=== PATIENT | female | born 1935 | race Caucasian/White ===

== ENCOUNTER 2017-10-09 09:51 | Day surgery (SDC) | payer OTHER ==
--- OUTSIDE RECORDS SUMMARY | 2017-10-09 09:53 | XMS REPORT | Clinical Summary ---
:1935 Author Organization [facility] Address [address] [place] [address] Phone Care Team Providers Name Role Phone Unavailable Primary Care Provider Unavailable Allergies Active Allergy Reactions Severity Noted Date Comments Tramadol Itching, Rash Low 10/12/2013 Current Medications Prescription Sig. Disp. Refills Start Date End Date Status ALPRAZolam (XANAX) Take 0.25 mg by Active 0.25 MG tablet mouth every night as needed. arformoterol Take 15 mcg by Active (BROVANA) 15 mcg/2 nebulization 2 mL nebulizer (two) times solution daily. cholecalciferol, Take by mouth Active vitamin D3, 50,000 daily . unit Tab aspirin 81 MG EC Take 81 mg by Active tablet mouth daily. amLODIPine Take 10 mg by Active (NORVASC) 10 MG mouth daily. tablet cetirizine Take 10 mg by Active (ZYRTEC) 10 MG mouth daily. tablet propranolol Take 20 mg by Active (INDERAL) 20 MG mouth 3 (three) tablet times daily. levothyroxine Take 1 tablet (88 30 tablet 0 03/27/2017 Active (SYNTHROID, mcg total) by LEVOTHROID) 88 MCG mouth Every tablet morning on an empty stomach. azithromycin Take by mouth Discontinued (ZITHROMAX) 250 MG daily. Take by 7 tablet mouth as directed. sertraline Take 25 mg by Discontinued (ZOLOFT) 25 MG mouth daily. 7 tablet propranolol Take 10 mg by Discontinued (INDERAL) 10 MG mouth 3 (three) 7 tablet times daily. levothyroxine Take 100 mcg by Discontinued (SYNTHROID, mouth Every 7 LEVOTHROID) 100 morning on an MCG tablet empty stomach. propranolol Take 0.5 tablets 90 tablet 0 03/26/2017 Discontinued (INDERAL) 20 MG (10 mg total) by 7 tablet mouth 3 (three) times daily. famotidine Take 1 tablet (20 28 tablet 0 03/27/2017 (PEPCID) 20 MG mg total) by 7 tablet mouth 2 (two) times daily for 14 days To protect your stomach while you are on steroids. azithromycin Take 1 tablet 30 tablet 0 03/27/2017 (ZITHROMAX) 250 MG (250 mg total) by 7 tablet mouth daily for 30 days Take chronically for MAC infection. predniSONE Take 1 tablet (10 28 tablet 0 03/27/2017 (DELTASONE) 10 MG mg total) by 7 tablet mouth 2 (two) times daily for 14 days. levoFLOXacin Take 1 tablet 5 tablet 0 03/26/2017 (LEVAQUIN) 750 MG (750 mg total) by 7 tablet mouth daily for 5 days Finish these antibiotics for pneumonia. 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 Physical deconditioning 03/25/2017 COPD exacerbation (HCC) 03/24/2017 Bronchiectasis (HCC) 10/24/2015 SOB (shortness of breath) 10/29/2014 Overview: CXR clear On Vanco/zosyn, azithro methylprednisone 40 mg IV q 6hr Cultures pending or negative thus far Pneumonia 10/12/2013 Bronchiectasis with acute exacerbation ([facility]) Essential tremor Hypertension Encounters Date Type Specialty Care Team Description 03/24/2017 - Hospital Cardiology Nayeli Sandoval COPD exacerbation 03/27/2017 Encounter MD Fred ([facility]) (Primary Mendez, Zeus Dx);Hypoxia;SOB MD Luis (shortness of Sophie, Fang-Mireille, breath);Cough;Leukoc ytosis, unspecified type;Bronchiectasis with acute exacerbation (HCC);Essential tremor;Essential hypertension;Communi ty acquired pneumonia, unspecified laterality;Current chronic use of systemic steroids;Acquired hypothyroidism;Acute kidney injury (HCC);Chronic respiratory failure with hypoxia (HCC);Mycobacterial infection, 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 Orders Only General Internal Medicine 03/17/2017 Hospital Man, Hypoxemia Encounter Socrates Villeda MD 03/17/2017 Outside Orders Stadn, Hypoxemia (Primary Socrates Villeda MD Dx) 10/30/2016 Hospital Man, Lung Encounter Socrates Villeda MD nodule;Bronchiectasi s without complication (HCC) 10/30/2016 Outside Orders Naty, Lung nodule (Primary Socrates Villeda MD Dx);Bronchiectasis without complication (HCC) after 10/08/2016 Social History Tobacco Use Types Packs/Day Years Used Date Never Smoker Alcohol Use Drinks/Week oz/Week Comments No Sex Assigned at Date Recorded Not on file Last Filed Vital Signs Vital Sign Reading Time Taken Blood Pressure 128/69 03/27/2017 11:55 AM CDT Pulse 116 03/27/2017 11:55 AM CDT Temperature 35.8 C (96.5 F) 03/27/2017 11:55 AM CDT Respiratory Rate 18 03/27/2017 11:55 AM CDT Oxygen Saturation 91% 03/27/2017 11:55 AM CDT Inhaled Oxygen Concentration - - Weight 65.3 kg (144 lb) 03/24/2017 1:49 PM CDT Height 170.2 cm (5' 7") 03/24/2017 10:44 PM CDT Body Mass Index 22.55 03/24/2017 1:49 PM CDT Plan of Treatment Not on file Procedures Procedure Name Priority Date/Time Associated Diagnosis Comments CRITICAL CARE Routine 03/24/2017 5:59 PM Results for this CDT procedure are in the results section. after 10/08/2016 Results RHYTHM STRIP - SCAN (04/02/2017 10:20 AM)Only the most recent of2 resultswithin the time period is included.Basic Metabolic Panel (03/27/2017 5:01 AM)Only the most recent of4 resultswithin the time period is included. Component Value Ref Range Sodium 142 136 - 145 meq/L Potassium 3.7 3.5 - 5.1 meq/L Chloride 107 98 - 107 meq/L CO2 27 22 - 29 meq/L BUN 35 (H) 7 - 21 mg/dL Creatinine 0.77 0.57 - 1.25 mg/dL Glucose 113 (H) 70 - 105 mg/dL Calcium 8.9 8.4 - 10.2 mg/dL EGFR 72Comment: ESTIMATED GFR IS NOT ACCURATE mL/min/1.73 sq m CREATININE CLEARANCE IN PREDICTING GLOMERULAR FILTRATION RATE. ESTIMATED GFR IS NOT APPLICABLE FOR DIALYSIS PATIENTS. Specimen Performing Laboratory Blood [facility] [address] [address] [address] chest with high resolution/ild (03/26/2017 10:05 PM) Specimen Performing Laboratory GE RIS Narrative FINAL REPORT CT of the chest, without contrast Clinical History:Ped, bronchiectasis, acute exacerbation Technique: CT of the chest is performed without intravenous contrast administration. This exam was performed according to our departmental dose optimization program which includes automated exposure control, adjustment of the mA and/or kV according to patient's size and/or use of iterative reconstructive technique.High resolution images of the lung are obtained during inspiration and expiration, in both supine and prone positions. Comparison Film:October 26, 2015 and October 31, 2014 Discussion: There is no supraclavicular, axillary adenopathy. Few scattered mediastinal lymph nodes are unchanged, likely reactive. Heart is normal in size, no pericardial effusion. There is bronchiectasis, and bronchial wall thickening, more severe in the lower lungs, associated with scattered foci of distal airway mucous plugging. New groundglass centrilobular nodules are not present in the right lower lobe, some demonstrate tree-in-bud morphology, suggestive of small airways disease. In addition, there is a small area of atelectasis and/or consolidation in the right lower lobe that is also new since the previous exam. No pleural effusion. A a few calcified granulomas are present. No evidence of significant air trapping. No fibrosis identified. Partially imaged upper abdomen is unremarkable. Osseous structures demonstrate mild degenerative changes. Impression: Bilateral bronchiectasis and bronchial wall thickening with scattered foci of mucous plugging, predominantly in the lower lobes. New centrilobular groundglass nodules and small area of atelectasis/consolidation in the right lower lobe suggests interval development of small airways and airspace disease. Signed: Nikki Aguilar MD Report Verified Date/Time:03/27/2017 08:41:17 Reading Location: [facility] Diagnostic Imaging Reading Room - [place] [id number] Procedure Note Interface, External Ris In - 03/27/2017 8:43 AM CDT FINAL REPORT CT of the chest, without contrast Clinical History: Ped, bronchiectasis, acute exacerbation Technique: CT of the chest is performed without intravenous contrast administration. This exam was performed according to our departmental dose optimization program which includes automated exposure control, adjustment of the mA and/or kV according to patient's size and/or use of iterative reconstructive technique. High resolution images of the lung are obtained during inspiration and expiration, in both supine and prone positions. Comparison Film: October 26, 2015 and October 31, 2014 Discussion: There is no supraclavicular, axillary adenopathy. Few scattered mediastinal lymph nodes are unchanged, likely reactive. Heart is normal in size, no pericardial effusion. There is bronchiectasis, and bronchial wall thickening, more severe in the lower lungs, associated with scattered foci of distal airway mucous plugging. New groundglass centrilobular nodules are not present in the right lower lobe, some demonstrate tree-in-bud morphology, suggestive of small airways disease. In addition, there is a small area of atelectasis and/or consolidation in the right lower lobe that is also new since the previous exam. No pleural effusion. A a few calcified granulomas are present. No evidence of significant air trapping. No fibrosis identified. Partially imaged upper abdomen is unremarkable. Osseous structures demonstrate mild degenerative changes. Impression: Bilateral bronchiectasis and bronchial wall thickening with scattered foci of mucous plugging, predominantly in the lower lobes. New centrilobular groundglass nodules and small area of atelectasis/consolidation in the right lower lobe suggests interval development of small airways and airspace disease. Signed: Nikki Aguilar MD Report Verified Date/Time: 03/27/2017 08:41:17 Reading Location: [facility] Diagnostic Imaging Reading Room - [place] [id number] (Hemogram only) (03/26/2017 5:22 AM)Only the most recent of2 resultswithin the time period is included. Component Value Ref Range WBC 28.7 (H) 3.5 - 10.5 K/L RBC 4.67 3.93 - 5.22 M/L Hemoglobin 13.1 11.2 - 15.7 GM/DL Hematocrit 43.2 34.1 - 44.9 % MCV 92.5 79.4 - 94.8 fL MCH 28.1 25.6 - 32.2 pg MCHC 30.3 (L) 32.2 - 35.5 GM/DL RDW 14.3 11.7 - 14.4 % Platelets 423 150 - 450 K/CU MM MPV 9.9 9.4 - 12.3 fL nRBC 0 0 - 0 /100 WBC Specimen Performing Laboratory Blood [address] [address] Hepatic function panel (03/26/2017 5:22 AM) Component Value Ref Range Protein, Total 6.5 6.0 - 8.3 gm/dL Albumin 3.4 (L) 3.5 - 5.0 g/dL Total Bilirubin 0.4 0.2 - 1.2 mg/dL Bilirubin, Direct 0.2 0.1 - 0.5 mg/dL Alkaline Phosphatase 110 40 - 150 U/L AST 10 5 - 34 U/L ALT 14 6 - 55 U/L Specimen Performing Laboratory Blood [address] [address] TSH/Free T4 If Indicated (03/25/2017 6:02 PM) Component Value Ref Range TSH 0.09 (L) 0.35 - 4.94 uIU/mL Specimen Performing Laboratory Blood - Arm, [address] [address] T4, free (03/25/2017 6:02 PM) Component Value Ref Range Free T4 1.28 0.70 - 1.48 ng/dL Specimen Performing Laboratory Blood - Arm, [address] [address] Sputum Culture + Gram Stain (03/24/2017 8:30 PM) Component Value Ref Range Result Result 4+ Pseudomonas aeruginosa (A) Result 4+ Pseudomonas aeruginosa (Mucoid-phenotype) (A) Gram Stain Result 2+ WBCs Gram Stain Result 0-5 epithelial cells Gram Stain Result 4+ gram negative rods Gram Stain Result 1+ gram positive cocci in pairs and clusters Gram Stain Result <1+ yeast Specimen Performing Laboratory Sputum - Expectorated [address] [place] [address] Narrative 4+ Normal respiratory greyson present Organism Antibiotic Method Susceptibility Pseudomonas aeruginosa Amikacin <=8: Susceptible Pseudomonas aeruginosa Aztreonam <=1: Susceptible Pseudomonas aeruginosa Cefepime 8: Susceptible Pseudomonas aeruginosa Ceftazidime <=1: Susceptible Pseudomonas aeruginosa Ciprofloxacin <=0.5: Susceptible Pseudomonas aeruginosa Doripenem <=0.5: Susceptible Pseudomonas aeruginosa Gentamicin 4: Susceptible Pseudomonas aeruginosa Imipenem 4: Resistant Pseudomonas aeruginosa Levofloxacin <=1: Susceptible Pseudomonas aeruginosa Meropenem <=0.5: Susceptible Pseudomonas aeruginosa Piperacillin <=16: Susceptible Pseudomonas aeruginosa Piperacillin + Tazobactam <=8: Susceptible Pseudomonas aeruginosa Tobramycin <=2: Susceptible Pseudomonas aeruginosa Amikacin <=8: Susceptible (Mucoid-phenotype) Pseudomonas aeruginosa Aztreonam <=1: Susceptible (Mucoid-phenotype) Pseudomonas aeruginosa Cefepime 8: Susceptible (Mucoid-phenotype) Pseudomonas aeruginosa Ceftazidime 2: Susceptible (Mucoid-phenotype) Pseudomonas aeruginosa Ciprofloxacin 2: Resistant (Mucoid-phenotype) Pseudomonas aeruginosa Doripenem <=0.5: Susceptible (Mucoid-phenotype) Pseudomonas aeruginosa Gentamicin <=2: Susceptible (Mucoid-phenotype) Pseudomonas aeruginosa Imipenem 1: Susceptible (Mucoid-phenotype) Pseudomonas aeruginosa Levofloxacin 2: Susceptible (Mucoid-phenotype) Pseudomonas aeruginosa Meropenem 1: Susceptible (Mucoid-phenotype) Pseudomonas aeruginosa Piperacillin <=16: Susceptible (Mucoid-phenotype) Pseudomonas aeruginosa Piperacillin + Tazobactam <=8: Susceptible (Mucoid-phenotype) Pseudomonas aeruginosa Tobramycin <=2: Susceptible (Mucoid-phenotype) Influenza A H1N1 PCR (03/24/2017 8:30 PM) Component Value Ref Range Influenza A RNA Not Detected Not Detected, Inconclusive Novel H1N1 RNA Not Detected Not Detected, Inconclusive Specimen Performing Laboratory Nasal - Nasopharyngeal Swab [address] [address] Narrative These assays were performed by real-time RT-PCR (administrative assistant receptionist-PCR) utilizing fluorogenic hydrolysis probe technology for the detection of human Influenza A viruses and the differential detection of novel H1N1 Influenza virus in respiratory specimens. The test is composed of (1) an RNA extraction from patient specimen, and (2) administrative assistant receptionist- PCR amplification and detection with human Influenza A and novel [id number] primers and probes. A well-conserved region of the Influenza A matrix gene is targeted in one set of reactions to identify both seasonal Influenza A and novel H1N1 Influenza virus in the specimen.In addition, a specific region of the hemagglutinin gene is targeted to differentiate the novel H1N1 virus from the seasonal human influenza. An internal control is used to confirm PCR amplification.Genetic variation and other factors can affect the accuracy of nucleic acid testing; therefore, the results should be interpreted in light of clinical data. This test was developed and its performance characteristics determined by the [facility] Pathology Department, Section of Molecular Pathology.It has not been cleared or approved by the U.S. Food and Drug Administration (FDA).Since FDA approval is not required for clinical use of the test, validation was done as required by The Clinical Laboratory Amendments of 1988. These assays were performed by real-time RT-PCR (administrative assistant receptionist-PCR) utilizing fluorogenic hydrolysis probe technology for the detection of human Influenza A viruses and the differential detection of novel H1N1 Influenza virus in respiratory specimens. The test is composed of (1) an RNA extraction from patient specimen, and (2) administrative assistant receptionist- PCR amplification and detection with human Influenza A and novel [id number] primers and probes. A well-conserved region of the Influenza A matrix gene is targeted in one set of reactions to identify both seasonal Influenza A and novel H1N1 Influenza virus in the specimen.In addition, a specific region of the hemagglutinin gene is targeted to differentiate the novel H1N1 virus from the seasonal human influenza. An internal control is used to confirm PCR amplification.Genetic variation and other factors can affect the accuracy of nucleic acid testing; therefore, the results should be interpreted in light of clinical data. This test was developed and its performance characteristics determined by the [facility] Pathology Department, Section of Molecular Pathology.It has not been cleared or approved by the U.S. Food and Drug Administration (FDA).Since FDA approval is not required for clinical use of the test, validation was done as required by The Clinical Laboratory Amendments of 1988. Strep pneumoniae urine antigen (03/24/2017 8:30 PM) Component Value Ref Range Strep pneumoniae Antigen Presumptive negative for Presumptive negative for pneumococcal pneumonia - see pneumococcal pneumonia - see comment comment, Presumptive negative for pneumococcal meningitis - see comment Specimen Performing Laboratory Urine - Urine, Unspecified [place] [address] Narrative Presumptive negative for pneumococcal pneumonia, suggesting no current or recent pneumococcal infection. Infection due to S. pneumoniae cannot be ruled out since the antigen present in the sample may be below the detection limit of the test. Legionella antigen, urine (03/24/2017 8:30 PM) Component Value Ref Range Legionella Urine Antigen Negative - see commentComment: Negative for L. pneumophila serogroup 1 antigen, suggesting no recent or current infection with this serogroup. Legionellosis cannot be ruled out since other serogroups and species may cause disease. Specimen Performing Laboratory Urine - Urine, Clean Catch [address] [address] Rapid Influenza A&B Screen (03/24/2017 8:30 PM) Component Value Ref Range Rapid Influenza A Antigen Negative Negative, Inconclusive Rapid influenza B Antigen Negative Negative, Inconclusive Specimen Performing Laboratory Nasal - Nasopharyngeal Swab [address] [address] ED ECG Interpretation (03/24/2017 5:59 PM) Nayeli Remy MD 03/24/20175:59 PM ECG/EKG Interpretation Date/Time: 03/24/2017 5:58 PM Performed by: NAYELI SANDOVAL Authorized by: ZEUS MENDEZ The ECG was interpreted by ED physician. The ECG is interpreted as sinus rhythm. Heart rate is 83 BPM. Patient tolerance: Patient tolerated the procedure well with no immediate complications Comments: SIN[facility] R[facility]M ON [facility] Critical Care (03/24/2017 5:59 PM) Nayeli Remy MD 03/24/20175:59 PM Critical Care Performed by: NAYELI SANDOVAL Authorized by: ZEUS MENDEZ Total critical care time: 35 minutes Critical care time was exclusive of separately billable procedures and treating other patients. Critical care was necessary to treat or prevent imminent or life-threatening deterioration of the following conditions: respiratory failure and sepsis. Critical care was time spent personally by me on the following activities: development of treatment plan with patient or surrogate, discussions with consultants, examination of patient, evaluation of patient's response to treatment, obtaining history from patient or surrogate, ordering and performing treatments and interventions, ordering and review of laboratory studies, ordering and review of radiographic studies, pulse oximetry, re-evaluation of patient's condition and review of old charts. Comments: I provided medically necessary Critical Care on an emergent basis in order to prevent any sudden, clinically significant deterioration in her condition. Critical care time:35min It is my opinion that her clinical presentation, without appropriate emergent intervention has the potential to acutely impair one or more of her vital organ systems with a high probability of imminent deterioration in her condition. The time involved in the performance of separately reportable procedures or teaching time was not counted towards the critical care time that is documented here. POC-Lactic Acid, Venous (03/24/2017 5:27 PM) Component Value Ref Range POC-Lactic Acid, Venous 1.8 (H)Comment: TESTED AT [address] 0.9 - 1.7 mmol/L [facility] [id number] Specimen Performing Laboratory Blood [address] [address] Blood culture (03/24/2017 5:21 PM)Only the most recent of2 resultswithin the time period is included. Component Value Ref Range Result No growth in 5 days Specimen Performing Laboratory Blood - Arm, Left [address] [address] XR chest 1 view portable / bedside (03/24/2017 2:45 PM) Specimen Performing Laboratory GE RIS Narrative FINAL REPORT AP chest HISTORY: Cough, shortness of breath COMPARISON: 03/17/2017, 10/30/2016. IMPRESSION: Stable cardiac silhouette. No acute osseous findings. Bibasilar opacities may reflect pneumonia or atelectasis. No large effusion. No pneumothorax. Consider contrast-enhanced chest CT for further evaluation. Signed: Bushra Markham MD Report Verified Date/Time:03/24/2017 15:00:31 Reading Location: [facility] Mammo Reading Room Procedure Note Interface, External Ris In - 03/24/2017 3:03 PM CDT FINAL REPORT AP chest HISTORY: Cough, shortness of breath COMPARISON: 03/17/2017, 10/30/2016. IMPRESSION: Stable cardiac silhouette. No acute osseous findings. Bibasilar opacities may reflect pneumonia or atelectasis. No large effusion. No pneumothorax. Consider contrast-enhanced chest CT for further evaluation. Signed: Bushra Markham MD Report Verified Date/Time: 03/24/2017 15:00:31 Reading Location: [facility] Mammo Reading Room Manual Differential (03/24/2017 2:42 PM) Component Value Ref Range % Neutros (manual) 86 % % Lymphs (manual) 10 % % Monos (manual) 2 % % Bands (manual) 2 0 - 10 % # Neutros (manual) 20.73 (H) 1.80 - 8.00 K/L # Lymphs (manual) 2.41 1.48 - 4.50 K/L # Monos (manual) 0.48 0.00 - 1.30 K/L # Bands (manual) 0.5 0.0 - 0.8 K/L Total Counted 100 Bands plus Segmented Neutrophils 21.21 WBC Morphology Normal Giant Platelet Present Anisocytosis 1+ few Polychromasia 1+ few Specimen Performing Laboratory Blood - Line, Venous [facility] [address] [address] CBC with platelet count + automated diff (03/24/2017 2:42 PM) Component Value Ref Range WBC 24.1 (H) 3.5 - 10.5 K/L RBC 4.80 3.93 - 5.22 M/L Hemoglobin 14.0 11.2 - 15.7 GM/DL Hematocrit 45.1 (H) 34.1 - 44.9 % MCV 94.0 79.4 - 94.8 fL MCH 29.2 25.6 - 32.2 pg MCHC 31.0 (L) 32.2 - 35.5 GM/DL RDW 14.2 11.7 - 14.4 % Platelets 492 (H) 150 - 450 K/CU MM MPV 9.8 9.4 - 12.3 fL nRBC 0 0 - 0 /100 WBC % Neutros 89 % % Lymphs 8 % % Monos 2 % % Eos 0 % % Baso 0 % # Neutros 21.53 (H) 1.56 - 6.13 K/L # Lymphs 1.87 1.18 - 3.74 K/L # Monos 0.35 0.24 - 0.36 K/L # Eos 0.00 (L) 0.04 - 0.36 K/L # Baso 0.06 0.01 - 0.08 K/L Immature Granulocytes-Relative 1 0 - 1 % Specimen Performing Laboratory Blood - Line, Venous [facility] [address] [address] CBC with platelet count + automated diff (03/24/2017 2:42 PM) Specimen Performing Laboratory Blood Narrative The following orders were created for panel order CBC with platelet count + automated diff. Procedure Abnormality Status --------- ------ CBC with platelet count ...[[id number]]AbnormalFinal result Manual Differential[[id number]]Abnormal Final result Please view results for these tests on the individual orders. ECG 12 lead (03/24/2017 2:30 PM) Specimen Performing Laboratory GE MUSE Narrative Ventricular Rate 83 BPM Atrial Rate 83 BPM P-R Interval 132 ms QRS Duration 88 ms Q-T Interval 340 ms QTC Calculation(Bazett) 399 ms P [place] 65 degrees R [place] -38 degrees T [place] 2 degrees very poor tracing Confirmed by MD Ayon Roberto ([id number]) on 03/25/2017 3:25:19 PM Procedure Note Interface, External Ris In - 03/25/2017 3:25 PM CDT Ventricular Rate 83 BPM Atrial Rate 83 BPM P-R Interval 132 ms QRS Duration 88 ms Q-T Interval 340 ms QTC Calculation(Bazett) 399 ms P [place] 65 degrees R [place] -38 degrees T [place] 2 degrees very poor tracing Confirmed by MD Ayon Roberto ([id number]) on 03/25/2017 3:25:19 PM XR Chest 2 Views (03/17/2017 1:44 PM)Only the most recent of2 resultswithin the time period is included. Specimen Performing Laboratory GE RIS Narrative FINAL REPORT PA and lateral chest HISTORY: Hypoxemia COMPARISON: 10/30/2016, 08/23/2014. CT performed 10/26/2015. IMPRESSION: Exaggerated thoracic kyphosis again demonstrated. No acute osseous bodies. Cardiac silhouette within normal limits. There appears to interval increase in opacities in the middle lobe and in size of nodules within the lingula which may reflect ongoing/worsening infectious etiology, such as from pulmonary JOCELIN. Lungs otherwise clear. No effusion. No pneumothorax. Further evaluation with chest CT may be useful. Signed: Bushra Markham MD Report Verified Date/Time:03/17/2017 13:54:25 Reading Location: [address] Radiology Reading Room Procedure Note Interface, External Ris In - 03/17/2017 1:56 PM CDT FINAL REPORT PA and lateral chest HISTORY: Hypoxemia COMPARISON: 10/30/2016, 08/23/2014. CT performed 10/26/2015. IMPRESSION: Exaggerated thoracic kyphosis again demonstrated. No acute osseous bodies. Cardiac silhouette within normal limits. There appears to interval increase in opacities in the middle lobe and in size of nodules within the lingula which may reflect ongoing/worsening infectious etiology, such as from pulmonary JOCELIN. Lungs otherwise clear. No effusion. No pneumothorax. Further evaluation with chest CT may be useful. Signed: Bushra Markham MD Report Verified Date/Time: 03/17/2017 13:54:25 Reading Location: [address] Radiology Reading Room after 10/08/2016
--- OUTSIDE RECORDS SUMMARY | 2017-10-09 09:54 | XMS REPORT ---
:1935 [facility] Address Re[facility] by [facility] Joseluis Castañeda [address] [place] [id number] Care Team Providers Name Role Phone NAYELI ASHTON Unavailable Unavailable Problems This patient has no known problems. Allergies, Adverse Reactions, Alerts This patient has no known allergies or adverse reactions. Medications This patient has no known medications. Results Test Description Test Time Test Comments Text Results Atomic Results Result Comments BLOOD CULTURE 2017-03-30 01:00:00 Test Item Value Reference Range Comments CULTURE (BEAKER) (test hbtf=1077) No growth in 5 days BLOOD [id number] 01:00:00 Test Item Value Reference Range Comments CULTURE (BEAKER) (test lubw=9609) No growth in 5 days SPUTUM CULTURE + GRAM [id number] 11:21:00 Test Item Value Reference Range Comments CULTURE (BEAKER) (test ldsh=7165) Amikacin (test code=1) Aztreonam (test code=32) Cefepime (test code=51) Ceftazidime (test code=27) Ciprofloxacin (test code=7) Doripenem (test dzlo=167) Gentamicin (test code=18) Imipenem (test code=19) Levofloxacin (test code=22) Meropenem (test code=34) Piperacillin (test code=24) Piperacillin + Tazobactam (test code=29) Tobramycin (test code=25) CULTURE (BEAKER) (test PSEUDOMONAS AERUGINOSA 4+ Pseudomonas hosj=9219) (MUCOID-PHENOTYPE) aeruginosa Amikacin (test code=1) Aztreonam (test code=32) Cefepime (test code=51) Ceftazidime (test code=27) Ciprofloxacin (test code=7) Doripenem (test hvte=684) Gentamicin (test code=18) Imipenem (test code=19) Levofloxacin (test code=22) Meropenem (test code=34) Piperacillin (test code=24) Piperacillin + Tazobactam (test code=29) Tobramycin (test code=25) CULTURE (BEAKER) (test 4+ Pseudomonas timc=1860) aeruginosa (Mucoid-phenotype) GRAM STAIN RESULT 2+ WBCs (BEAKER) (test hinf=4660) GRAM STAIN RESULT 0-5 epithelial cells (BEAKER) (test vpgr=209498) GRAM STAIN RESULT 4+ gram negative rods (BEAKER) (test wapu=100745) GRAM STAIN RESULT 1+ gram positive cocci (BEAKER) (test in pairs and clusters spah=063628) GRAM STAIN RESULT <1+ yeast (BEAKER) (test htrr=750120) 4+ Normal respiratory greyson presentCT, CHEST, WITH HIGH RESOLUTION, INTERSTITAL LUNG [id number] 08:41:00Compare to prior imagingFINAL REPORT CT of the chest, without contrast Clinical History: Ped, bronchiectasis, acute exacerbation Technique: CT of the chest is performed without intravenous contrast administration. This exam was performed according to our departmental dose optimization program which includes automated exposure control, adjustment of the mA and/or kV according to patient's size and/oruse of iterative reconstructive technique. High resolution images of the lung are obtained during inspiration and expiration, in both supine and prone positions. Comparison Film: October 26, 2015 and October 31, 2014 Discussion: There is no supraclavicular, axillary adenopathy. Few scattered mediastinal lymph nodes are unchanged, likely reactive. Heart is normal in size, no pericardial effusion. There isbronchiectasis, and bronchial wall thickening, more severe in the lower lungs, associated with scattered foci of distal airway mucous plugging. New groundglass centrilobular nodules are not present in the right lower lobe, some demonstrate tree-in-bud morphology, suggestive of small airways disease. In addition, there is a small area of atelectasis and/or consolidation in the right lower lobe that isalso new since the previous exam. No pleural [...] airways and airspace disease. Signed: Nikki Aguilar Verified Date/Time: 03/27/2017 08: 41:17 Reading Location: [facility] Diagnostic Imaging Reading Room - [place] [address] BASIC METABOLIC [id number] 05:50:00 Test Item Value Reference Range Comments SODIUM (BEAKER) (test 142 meq/L 136-145 rzjz=537) POTASSIUM (BEAKER) (test 3.7 meq/L 3.5-5.1 ytvx=888) CHLORIDE (BEAKER) (test 107 meq/L 98-107 ahnc=813) CO2 (BEAKER) (test 27 meq/L 22-29 gskp=204) BLOOD UREA NITROGEN 35 mg/dL 7-21 (BEAKER) (test appt=699) CREATININE (BEAKER) (test 0.77 mg/dL 0.57-1.25 ysxw=569) GLUCOSE RANDOM (BEAKER) 113 mg/dL 70-105 (test hhqg=871) CALCIUM (BEAKER) (test 8.9 mg/dL 8.4-10.2 fcpq=285) EGFR (BEAKER) (test 72 mL/min/1.73 sq m ESTIMATED GFR IS NOT ilkb=5244) ACCURATE CREATININE CLEARANCE IN PREDICTING GLOMERULAR FILTRATION RATE. ESTIMATED GFR IS NOT APPLICABLE FOR DIALYSIS PATIENTS. HEPATIC FUNCTION [id number] 07:53:00 Test Item Value Reference Range Comments TOTAL PROTEIN (BEAKER) (test dqwd=507) 6.5 gm/dL 6.0-8.3 ALBUMIN (BEAKER) (test okvc=0076) 3.4 g/dL 3.5-5.0 BILIRUBIN TOTAL (BEAKER) (test szcr=447) 0.4 mg/dL 0.2-1.2 BILIRUBIN DIRECT (BEAKER) (test jtxa=113) 0.2 mg/dL 0.1-0.5 ALKALINE PHOSPHATASE (BEAKER) (test pjje=718) 110 U/L 40-150 AST (SGOT) (BEAKER) (test jykz=859) 10 U/L 5-34 ALT (SGPT) (BEAKER) (test aqqm=832) 14 U/L 6-55 BASIC METABOLIC [id number] 07:53:00 Test Item Value Reference Range Comments SODIUM (BEAKER) (test 142 meq/L 136-145 trfw=948) POTASSIUM (BEAKER) (test 3.9 meq/L 3.5-5.1 wkau=219) CHLORIDE (BEAKER) (test 109 meq/L 98-107 texj=665) CO2 (BEAKER) (test 21 meq/L 22-29 xipm=799) BLOOD UREA NITROGEN 30 mg/dL 7-21 (BEAKER) (test ydby=690) CREATININE (BEAKER) (test 0.82 mg/dL 0.57-1.25 nvqm=991) GLUCOSE RANDOM (BEAKER) 111 mg/dL 70-105 (test ippe=403) CALCIUM (BEAKER) (test 9.2 mg/dL 8.4-10.2 jdqa=445) EGFR (BEAKER) (test 67 mL/min/1.73 sq m ESTIMATED GFR IS NOT ddvs=3479) ACCURATE CREATININE CLEARANCE IN PREDICTING GLOMERULAR FILTRATION RATE. ESTIMATED GFR IS NOT APPLICABLE FOR DIALYSIS PATIENTS. CBC (HEMOGRAM ONLY)2017-03-26 06:37:00 Test Item Value Reference Range Comments WHITE BLOOD CELL COUNT (BEAKER) (test auwx=299) 28.7 K/ L 3.5-10.5 RED BLOOD CELL COUNT (BEAKER) (test siex=323) 4.67 M/ L 3.93-5.22 HEMOGLOBIN (BEAKER) (test ahju=621) 13.1 GM/DL 11.2-15.7 HEMATOCRIT (BEAKER) (test iqth=604) 43.2 % 34.1-44.9 MEAN CORPUSCULAR VOLUME (BEAKER) (test csvm=928) 92.5 fL 79.4-94.8 MEAN CORPUSCULAR HEMOGLOBIN (BEAKER) (test 28.1 pg 25.6-32.2 iktg=175) MEAN CORPUSCULAR HEMOGLOBIN CONC (BEAKER) (test 30.3 GM/DL 32.2-35.5 jfpj=330) RED CELL DISTRIBUTION WIDTH (BEAKER) (test 14.3 % 11.7-14.4 fuzo=652) PLATELET COUNT (BEAKER) (test wipo=561) 423 K/CU MM 150-450 MEAN PLATELET VOLUME (BEAKER) (test azhh=980) 9.9 fL 9.4-12.3 NUCLEATED RED BLOOD CELLS (BEAKER) (test 0 /100 WBC 0-0 gyga=550) T4, [id number] 19:51:00 Test Item Value Reference Range Comments FREE T4 (BEAKER) (test oldu=988) 1.28 ng/dL 0.70-1.48 TSH/FREE T4 IF [id number] 19:02:00 Test Item Value Reference Range Comments THYROID STIMULATING HORMONE (BEAKER) (test 0.09 uIU/mL 0.35-4.94 yqyc=607) INFLUENZA A H1N1 [id number] 14:59:00 Test Item Value Reference Range Comments INFLUENZA A RNA (BEAKER) (test Not Detected Not Detected, Inconclusive kqqu=5300) NOVEL H1N1 RNA (BEAKER) (test Not Detected Not Detected, Inconclusive olve=9748) These assays were performed by real-time RT-PCR (informatics consultant-PCR) utilizing fluorogenic hydrolysis probe technology for the detection of human Influenza A viruses and the differential detection of novel H1N1 Influenza virus in respiratory specimens. The test is composed of (1) an RNA extraction from patient specimen, and (2) informatics consultant-PCR amplification and detection with human Influenza A and novel Z0N3-gvtbjshw primers and probes. A well-conserved region of the Influenza A matrix gene is targeted in one set of reactions to identify both seasonal Influenza A and novel H1N1 Influenza virus in the specimen. In addition, a specific region of the hemagglutinin gene is targeted to differentiate the novel H1N1 virusfrom the seasonal human influenza. An internal control is used to confirm PCR amplification. Genetic variation and other factors can affect the accuracy of nucleic acid testing; therefore, the resultsshould be interpreted in light of clinical data. This test was developed and its performance characteristics determined by the [facility]ology Department, Section of Molecular Pathology. It has not been cleared or approved by the U.S. Food and Drug Administration (FDA). SinceFDA approval is not required for clinical use of the test, validation was done as required by The Clinical Laboratory Amendments of 1988.These assays were performed by real-time RT-PCR (informatics consultant-PCR) utilizing fluorogenic hydrolysis probe technology for the detection of human Influenza A viruses and the differential detection of novel H1N1 Influenza virus in respiratory specimens. The test is composed of (1) an RNA extraction from patient specimen, and (2) informatics consultant-PCR amplification and detection with human Influenza A and novel X7L2-mvotmwhu primers and probes. A well-conserved region of the Influenza A matrix gene is targeted in one set of reactions to identify both seasonal Influenza A and novel H1N1 Influenza virus in the specimen. In addition, a specific region of the hemagglutinin gene is targeted to differentiate the novel H1N1 virus from the seasonal human influenza. An internal control is used to confirm PCR amplification. Genetic variation and other factors can affect the accuracy of nucleic acid testing; therefore, the results should be interpreted in light of clinical data. This test was developed and its performance characteristics determined by the [facility] Department, Section of Molecular Pathology. It has not been cleared or approved by the U.S. Food and Drug Administration ( FDA). Since FDA approval is not required for clinical use of the test, validation was done as required by The Clinical Laboratory Amendments of 1988.BASIC METABOLIC [id number] 06:47:00 Test Item Value Reference Range Comments SODIUM (BEAKER) (test 143 meq/L 136-145 ifda=389) POTASSIUM (BEAKER) (test 4.0 meq/L 3.5-5.1 Specimen slightly kjaq=075) hemolyzed CHLORIDE (BEAKER) (test 109 meq/L 98-107 ynyl=999) CO2 (BEAKER) (test 25 meq/L 22-29 wjhf=577) BLOOD UREA NITROGEN 35 mg/dL 7-21 (BEAKER) (test pmue=224) CREATININE (BEAKER) (test 0.77 mg/dL 0.57-1.25 Specimen slightly xadl=419) hemolyzed GLUCOSE RANDOM (BEAKER) 99 mg/dL 70-105 (test wgri=513) CALCIUM (BEAKER) (test 9.2 mg/dL 8.4-10.2 hrzg=177) EGFR (BEAKER) (test 72 mL/min/1.73 sq m ESTIMATED GFR IS NOT nzbf=1930) ACCURATE CREATININE CLEARANCE IN PREDICTING GLOMERULAR FILTRATION RATE. ESTIMATED GFR IS NOT APPLICABLE FOR DIALYSIS PATIENTS. CBC (HEMOGRAM ONLY)2017-03-25 06:45:00 Test Item Value Reference Range Comments WHITE BLOOD CELL COUNT (BEAKER) (test lnom=624) 25.9 K/ L 3.5-10.5 RED BLOOD CELL COUNT (BEAKER) (test clxc=490) 4.32 M/ L 3.93-5.22 HEMOGLOBIN (BEAKER) (test giwp=904) 12.5 GM/DL 11.2-15.7 HEMATOCRIT (BEAKER) (test mpsf=960) 39.8 % 34.1-44.9 MEAN CORPUSCULAR VOLUME (BEAKER) (test ppzl=012) 92.1 fL 79.4-94.8 MEAN CORPUSCULAR HEMOGLOBIN (BEAKER) (test 28.9 pg 25.6-32.2 wrpy=045) MEAN CORPUSCULAR HEMOGLOBIN CONC (BEAKER) (test 31.4 GM/DL 32.2-35.5 samq=602) RED CELL DISTRIBUTION WIDTH (BEAKER) (test 13.9 % 11.7-14.4 tsdi=375) PLATELET COUNT (BEAKER) (test xwxj=944) 363 K/CU MM 150-450 MEAN PLATELET VOLUME (BEAKER) (test zyep=447) 9.8 fL 9.4-12.3 NUCLEATED RED BLOOD CELLS (BEAKER) (test 0 /100 WBC 0-0 uwpr=267) STREP PNEUMONIAE [id number] 21:41:00 Test Item Value Reference Range Comments STREP PNEUMONIAE ANTIGEN Presumptive negative for Presumptive negative for (BEAKER) (test pneumococcal pneumonia - pneumococcal pneumonia - twhy=8782) see comment see commen Presumptive negative for pneumococcal pneumonia, suggesting no current or recent pneumococcal infection. Infection due to S. pneumoniae cannot be ruled out since the antigen present in the sample may be below the detection limit of the test.LEGIONELLA ANTIGEN, [id number] 21:40:00 Test Item Value Reference Range Comments L. PNEUMOPHILA SEROGP 1 Negative - see Negative for L. UR AG (BEAKER) (test comment pneumophila serogroup 1 wndb=0616) antigen, suggesting no recent or current infection with this serogroup. Legionellosis cannot be ruled out since other serogroups and species may cause disease. RAPID INFLUENZA A&B [id number] 21:39:00 Test Item Value Reference Range Comments RAPID INFLUENZA A AG (BEAKER) (test Negative Negative, Inconclusive ktcm=5635) RAPID INFLUENZA B AG (BEAKER) (test Negative Negative, Inconclusive tjrp=9391) CBC W/PLT COUNT & AUTO [id number] 18:13:00 Test Item Value Reference Range Comments WHITE BLOOD CELL COUNT (BEAKER) (test aimi=756) 24.1 K/ L 3.5-10.5 RED BLOOD CELL COUNT (BEAKER) (test wsif=119) 4.80 M/ L 3.93-5.22 HEMOGLOBIN (BEAKER) (test lbpv=171) 14.0 GM/DL 11.2-15.7 HEMATOCRIT (BEAKER) (test ucvj=131) 45.1 % 34.1-44.9 MEAN CORPUSCULAR VOLUME (BEAKER) (test lwdp=086) 94.0 fL 79.4-94.8 MEAN CORPUSCULAR HEMOGLOBIN (BEAKER) (test 29.2 pg 25.6-32.2 xqpg=436) MEAN CORPUSCULAR HEMOGLOBIN CONC (BEAKER) (test 31.0 GM/DL 32.2-35.5 abui=389) RED CELL DISTRIBUTION WIDTH (BEAKER) (test 14.2 % 11.7-14.4 heay=548) PLATELET COUNT (BEAKER) (test dnus=996) 492 K/CU MM 150-450 MEAN PLATELET VOLUME (BEAKER) (test ntgw=929) 9.8 fL 9.4-12.3 NUCLEATED RED BLOOD CELLS (BEAKER) (test 0 /100 WBC 0-0 yebh=526) NEUTROPHILS RELATIVE PERCENT (BEAKER) (test 89 % azid=500) LYMPHOCYTES RELATIVE PERCENT (BEAKER) (test 8 % hntk=997) MONOCYTES RELATIVE PERCENT (BEAKER) (test 2 % ymqy=990) EOSINOPHILS RELATIVE PERCENT (BEAKER) (test 0 % imkp=538) BASOPHILS RELATIVE PERCENT (BEAKER) (test 0 % stgb=064) NEUTROPHILS ABSOLUTE COUNT (BEAKER) (test 21.53 K/ L 1.56-6.13 hpdx=054) LYMPHOCYTES ABSOLUTE COUNT (BEAKER) (test 1.87 K/ L 1.18-3.74 ixil=571) MONOCYTES ABSOLUTE COUNT (BEAKER) (test 0.35 K/ L 0.24-0.36 zyos=312) EOSINOPHILS ABSOLUTE COUNT (BEAKER) (test 0.00 K/ L 0.04-0.36 oxqm=141) BASOPHILS ABSOLUTE COUNT (BEAKER) (test 0.06 K/ L 0.01-0.08 hguz=893) IMMATURE GRANULOCYTES-RELATIVE PERCENT (BEAKER) 1 % 0-1 (test abye=8092) (MANUAL DIFFERENTIAL)2017-03-24 18:13:00 Test Item Value Reference Range Comments NEUTROPHILS - REL (DIFF) (BEAKER) (test 86 % xdjk=5979) LYMPHOCYTES - REL (DIFF) (BEAKER) (test 10 % drmg=9522) MONOCYTES - REL (DIFF) (BEAKER) (test gupb=3557) 2 % BANDS - REL (DIFF) (BEAKER) (test mrbq=3873) 2 % 0-10 NEUTROPHILS - ABS (DIFF) (BEAKER) (test 20.73 K/ L 1.80-8.00 zzan=3933) LYMPHOCYTES - ABS (DIFF) (BEAKER) (test 2.41 K/ L 1.48-4.50 mflv=2846) MONOCYTES - ABS (DIFF) (BEAKER) (test xbhk=0604) 0.48 K/ L 0.00-1.30 BANDS-ABS (DIFF) (BEAKER) (test obbm=9874) 0.5 K/ L 0.0-0.8 TOTAL COUNTED (BEAKER) (test gvfq=2256) 100 BANDS + SEGMENTED NEUTROPHILS (BEAKER) (test 21.21 tegw=4878) WBC MORPHOLOGY (BEAKER) (test xlrj=833) Normal GIANT PLATELETS (BEAKER) (test lfqe=491) Present ANISOCYTOSIS (BEAKER) (test hvkg=780) 1+ few POLYCHROMATOPHILLIC RBCS(BEAKER) (test fdub=647) 1+ few POCT-LACTIC ACID, [id number] 17:31:00 Test Item Value Reference Range Comments POC-LACTIC ACID, VENOUS 1.8 mmol/L 0.9-1.7 TESTED AT [facility] [address] (BEAKER) (test mkoz=7663) [facility] [address] BASIC METABOLIC [id number] 15:20:00 Test Item Value Reference Range Comments SODIUM (BEAKER) (test 143 meq/L 136-145 kuun=456) POTASSIUM (BEAKER) (test 4.2 meq/L 3.5-5.1 ovot=704) CHLORIDE (BEAKER) (test 107 meq/L 98-107 dhuf=443) CO2 (BEAKER) (test 25 meq/L 22-29 bara=806) BLOOD UREA NITROGEN 32 mg/dL 7-21 (BEAKER) (test ysjy=676) CREATININE (BEAKER) (test 1.12 mg/dL 0.57-1.25 ganm=970) GLUCOSE RANDOM (BEAKER) 157 mg/dL 70-105 (test nrbn=299) CALCIUM (BEAKER) (test 9.7 mg/dL 8.4-10.2 aaoz=545) EGFR (BEAKER) (test 47 mL/min/1.73 sq m ESTIMATED GFR IS NOT gtrm=5088) ACCURATE CREATININE CLEARANCE IN PREDICTING GLOMERULAR FILTRATION RATE. ESTIMATED GFR IS NOT APPLICABLE FOR DIALYSIS PATIENTS. RAD, CHEST, 1 VIEW, NON [id number] 15:00:00Reason for exam:->SHORTNESS OF BREATHReason for exam:->COUGHShould this be performed at the bedside?-> YesFINAL REPORT AP chest HISTORY: Cough, shortness of breath COMPARISON: 03/17/2017, 10/30/2016. IMPRESSION:Stable cardiac silhouette. No acute osseous findings. Bibasilar opacities may reflect pneumonia or atelectasis. No large effusion. No pneumothorax. Consider contrast-enhanced chest CT for further evaluation. Signed: Bushra Markhameport Verified Date/ Time: 03/24/2017 15:00:31 [facility] , [facility]ST, 2 [id number] 13:54:00Reason for Exam:->hypoxemiaLocation-> [facility] HospitalFINAL REPORT PA and lateral chest HISTORY: Hypoxemia COMPARISON: 10/30/2016, 08/23/2014. CT performed 2015. IMPRESSION:Exaggerated thoracic kyphosis again demonstrated. No acute osseous bodies. Cardiac silhouette within normal limits. There appears to interval increase in opacities in the middle lobe and in size of nodules within the lingula which may reflect ongoing/worsening infectious etiology, such as from pulmonary JOCELIN. Lungs otherwise clear. No effusion. No pneumothorax. Further evaluation with chest CT may be useful. Signed: Bushra Markhamepgayathri Verified Date/Time: 03/17/2017 13:54:25 Reading Location: [address] Radiology Reading Room
[2017-10-09] MEDS ORDERED: Ringers Lactate 1,000 ML IV ONE (09:56)
[2017-10-09] MEDS ORDERED: PROPOFOL 200 MG/20 ML VIAL IV ONE (12:07)
[2017-10-09] MEDS ORDERED: EPHEDRINE SULF 50 MG/ML SYR ONE (12:10)
[2017-10-09] MEDS ORDERED: LIDOCAINE 1% MPF 5 ML VIAL ONE (12:11)
[2017-10-09 12:39] VITALS: O2SAT 100
--- NOTE | 2017-10-09 12:41 | ENDO RPT ---
[address], [address] EGD PROCEDURE REPORT EXAM DATE: 10/09/2017 PATIENT NAME: Mary Gonzales MR#: [id number] BIRTHDATE: 1935 ATTENDING: Dwayne Silva Dr STATUS: outpatient AUTOMATION CONTROLS ENGINEER: Jigna Ashley RN and Daisy Greer INDICATIONS: The patient is a 82 yr old Female here for an EGD due to melenic bleeding and left upper quadrant abdominal pain PROCEDURE PERFORMED: EGD with biopsy MEDICATIONS: Per Anesthesia. TOPICAL ANESTHETIC: none CONSENT: The patient understands the risks and benefits of the procedure and understands that these risks include, but are not limited to: sedation, allergic reaction, infection, perforation and/or bleeding. Alternative means of evaluation and treatment include, among others: physical exam, x-rays, and/or surgical intervention. The patient elects to proceed with this endoscopic procedure. DESCRIPTION OF PROCEDURE: During intra-op preparation period all mechanical medical equipment was checked for proper function. Hand hygiene and appropriate measures for infection prevention was taken. Procedure, possible complications, and alternatives including but not limited to the possibility of bleeding, perforation, tear, infection, sepsis, need for surgery, need for blood transfusion, and anesthesia related complications were explained to the patient. After the risks, benefits and alternatives of the procedure were thoroughly explained, Informed consent was verified, confirmed and timeout was successfully executed by the treatment team. The patient was placed in the left lateral position. The patient was anesthetized with topical anesthesia. Through the anesthetized oropharyngeal area, the scope was passed without any difficulty. The [id number] ([id number]) endoscope was introduced through the mouth and advanced to the third portion of the duodenum. Retroflexed views revealed a moderate sized hiatal hernia. The gastroscope was then slowly withdrawn and removed. A moderate sized hiatal hernia was found Mild Atrophic gastritis was found in the body and the antrum of the stomach. Multiple biopsies were obtained and sent to pathology. Multiple erosions were found in the body and the antrum of the stomach. Multiple ulcers were found in the antrum. Duodenitis was found in the bulb and descending duodenum. Small bowel biopsies obtained with history of chronic unexplained diarrhea. ADVERSE EVENTS: There were no complications. IMPRESSIONS: 1. A moderate sized hiatal hernia 2. Mild strophic gastritis in the body and the antrum of the stomach 3. Multiple erosions in the body (3 long 3-4 cm linear) and the antrum (4) of the stomach 4. Multiple (2) small 2 mm clean-based ulcers in the antrum 5. Duodenitis in the bulb and descending duodenum 6. Small bowel biopsies obtained with history of chronic unexplained diarrhea RECOMMENDATIONS: 1. await biopsy results 2. acid suppression therapy REPEAT EXAM: Dwayne Silva Dr eSigned: Dwayne Silva Dr 10/09/2017 12:40 PM cc: Lul Brorego M.D. CPT CODES: ICD9 CODES: PATIENT NAME: Mary Gonzales MR#: [id number]
[2017-10-09 12:49] VITALS: BP 128/62; TEMP 97.9
== END 2017-10-09 13:09 | disposition home or self-care (01) ==
LOC: ENDO 09:51
PROVIDERS: ATTEND Internal Medicine Gastroenterology
PROC: 0DB88ZX Excision of Small Intestine, Via Natural or Artificial Opening Endoscopic, Diagnostic (ICD-10-PCS; 2017-10-09)
PROC: 0DB68ZX Excision of Stomach, Via Natural or Artificial Opening Endoscopic, Diagnostic (ICD-10-PCS; principal; 2017-10-09 11:00)
DX: K29.40 Chronic atrophic gastritis without bleeding (principal); K44.9 Diaphragmatic hernia without obstruction or gangrene; K25.9 Gastric ulcer, unspecified as acute or chronic, without hemorrhage or perforation; K29.80 Duodenitis without bleeding; R19.7 Diarrhea, unspecified
CPT/HCPCS: 88305; 88312

== ENCOUNTER 2017-12-16 15:04 | Emergency (ER) | payer OTHER ==
--- OUTSIDE RECORDS SUMMARY | 2017-12-16 15:07 | XMS REPORT | Clinical Summary ---
:1935 Author Organization [facility] Address [address] [place] [address] Phone Care Team Providers Name Role Phone [...] far Pneumonia 10/12/2013 Bronchiectasis with acute exacerbation ([facility]) Essential tremor Hypertension Encounters Date Type Specialty Care Team Description 03/24/2017 - Hospital Cardiology Nayeli Sandoval COPD exacerbation 03/27/2017 Encounter MD Fred ([facility]) (Primary Mendez, Baldo Dx);Hypoxia;SOB MD Luis (shortness of Sophie, Fang-Mireille, breath);Cough;Leukoc ytosis, unspecified type;Bronchiectasis with acute exacerbation (HCC);Essential tremor;Essential hypertension;Communi ty acquired pneumonia, unspecified laterality;Current chronic use of systemic steroids;Acquired hypothyroidism;Acute kidney injury (HCC);Chronic respiratory failure with hypoxia (HCC);Mycobacterial infection, 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 after 12/15/2016 Results RHYTHM STRIP - SCAN (04/02/2017 10:20 [...] DIALYSIS PATIENTS. Specimen Performing Laboratory Blood [facility] [address] [address] [address] chest with high resolution/ild (03/26/2017 10:05 [...] MD Report Verified Date/Time:03/27/2017 08:41:17 Reading Location: [facility] Diagnostic Imaging Reading Room - [place] [address] Procedure Note Interface, External Ris In - [...] Report Verified Date/Time: 03/27/2017 08:41:17 Reading Location: [facility] Diagnostic Imaging Reading Room - [place] [address] (Hemogram only) (03/26/2017 5:22 AM)Only the most [...] 0 /100 WBC Specimen Performing Laboratory Blood [address] [address] Hepatic function panel (03/26/2017 5:22 AM) Component Value Ref Range Protein, Total 6.5 6.0 - 8.3 gm/dL Albumin 3.4 (L) 3.5 - 5.0 g/dL Total Bilirubin 0.4 0.2 - 1.2 mg/dL Bilirubin, Direct 0.2 0.1 - 0.5 mg/dL Alkaline Phosphatase 110 40 - 150 U/L AST 10 5 - 34 U/L ALT 14 6 - 55 U/L Specimen Performing Laboratory Blood [address] [address] TSH/Free T4 If Indicated (03/25/2017 6:02 PM) Component Value Ref Range TSH 0.09 (L) 0.35 - 4.94 uIU/mL Specimen Performing Laboratory Blood - Arm, [address] [address] T4, free (03/25/2017 6:02 PM) Component Value Ref Range Free T4 1.28 0.70 - 1.48 ng/dL Specimen Performing Laboratory Blood - Arm, [address] [address] Sputum Culture + Gram Stain (03/24/2017 8:30 [...] yeast Specimen Performing Laboratory Sputum - Expectorated [address] [address] Narrative 4+ Normal respiratory greyson present Organism [...] Specimen Performing Laboratory Nasal - Nasopharyngeal Swab [address] These assays were performed by real-time RT-PCR (attendant coin operated laundry-PCR) utilizing fluorogenic hydrolysis probe technology for the detection of human Influenza A viruses and the differential detection of novel H1N1 Influenza virus in respiratory specimens. The test is composed of (1) an RNA extraction from patient specimen, and (2) attendant coin operated laundry- PCR amplification and detection with human Influenza A and novel [id number]-vrorhvqu primers and probes. A well-conserved region of [...] and its performance characteristics determined by the [facility] Pathology Department, Section of Molecular Pathology.It has not been cleared or approved by the U.S. Food and Drug Administration (FDA).Since FDA approval is not required for clinical use of the test, validation was done as required by The Clinical Laboratory Amendments of 1988. These assays were performed by real-time RT-PCR (attendant coin operated laundry-PCR) utilizing fluorogenic hydrolysis probe technology for the detection of human Influenza A viruses and the differential detection of novel H1N1 Influenza virus in respiratory specimens. The test is composed of (1) an RNA extraction from patient specimen, and (2) attendant coin operated laundry- PCR amplification and detection with human Influenza A and novel [id number]-izwgcjzg primers and probes. A well-conserved region of [...] and its performance characteristics determined by the [facility] Pathology Department, Section of Molecular Pathology.It has not been cleared or approved by the U.S. Food and Drug Administration (FDA).Since FDA approval is not required for clinical use of the test, validation was done as required by The Clinical Laboratory Amendments of 1987. Strep pneumoniae urine antigen (03/24/2017 8:30 PM) Component Value Ref Range Strep pneumoniae Antigen Presumptive negative for Presumptive negative for pneumococcal pneumonia - see pneumococcal pneumonia - see comment comment, Presumptive negative for pneumococcal meningitis - see comment Specimen Performing Laboratory Urine - Urine, Unspecified [place] [address] Narrative Presumptive negative for pneumococcal pneumonia, suggesting [...] Performing Laboratory Urine - Urine, Clean Catch [address] [address] Rapid Influenza A&B Screen (03/24/2017 8:30 PM) Component Value Ref Range Rapid Influenza A Antigen Negative Negative, Inconclusive Rapid influenza B Antigen Negative Negative, Inconclusive Specimen Performing Laboratory Nasal - Nasopharyngeal Swab [address] [address] ED ECG Interpretation (03/24/2017 5:59 PM) Narrative Nayeli Sandoval MD 03/24/20175:59 PM ECG/EKG Interpretation Date/Time: 03/24/2017 5:58 PM Performed by: NAYELI SANDOVAL. Authorized by: BALDO MENDEZ The ECG was interpreted by ED physician. The ECG is interpreted as sinus rhythm. Heart rate is 83 BPM. Patient tolerance: Patient tolerated the procedure well with no immediate complications Comments: SINUS RHYTHM ON [facility] Critical Care (03/24/2017 5:59 PM) Narrative Nayeli Sandoval MD 03/24/20175:59 PM Critical Care Performed by: NAYELI SANDOVAL Authorized by: BALDO MENDEZ Total critical care time: 35 minutes [...] POC-Lactic Acid, Venous 1.8 (H)Comment: TESTED AT [address] 0.9 - 1.7 mmol/L [facility] [address] Specimen Performing Laboratory Blood [address] [address] Blood culture (03/24/2017 5:21 PM)Only the most recent of2 resultswithin the time period is included. Component Value Ref Range Result No growth in 5 days Specimen Performing Laboratory Blood - Arm, Left [address] [address] XR chest 1 view portable / bedside [...] MD Report Verified Date/Time:03/24/2017 15:00:31 Reading Location: [facility] Reading Room Procedure Note Interface, External Ris In - 03/24/2017 3:03 PM CDT FINAL REPORT AP chest HISTORY: Cough, shortness of breath COMPARISON: 03/17/2017, 10/30/2016. IMPRESSION: Stable cardiac silhouette. No acute osseous findings. Bibasilar opacities may reflect pneumonia or atelectasis. No large effusion. No pneumothorax. Consider contrast-enhanced chest CT for further evaluation. Signed: Bushra Markham MD Report Verified Date/Time: 03/24/2017 15:00:31 Reading Location: [facility] Reading Room Manual Differential (03/24/2017 2:42 PM) [...] Specimen Performing Laboratory Blood - Line, Venous [address] [address] CBC with platelet count + automated diff [...] Specimen Performing Laboratory Blood - Line, Venous [address] [address] CBC with platelet count + automated diff (03/24/2017 2:42 PM) Specimen Performing Laboratory Blood Narrative The following orders were created for panel order CBC with platelet count + automated diff. Procedure Abnormality Status --------- ------ CBC with platelet count ...[[id number]]AbnormalFinal result Manual Differential[[id number]]Abnormal Final result Please view results for these tests on the individual orders. ECG 12 lead (03/24/2017 2:30 PM) Specimen Performing Laboratory GE MUSE Narrative Ventricular Rate 83 BPM Atrial Rate 83 BPM P-R Interval 132 ms QRS Duration 88 ms Q-T Interval 340 ms QTC Calculation(Bazett) 399 ms P [place] 65 degrees R [place] -38 degrees T [place] 2 degrees very poor tracing Confirmed by MD Ayon Roberto ([id number]) on 03/25/2017 3:25:19 PM Procedure Note Interface, External Ris In - 03/25/2017 3:25 PM CDT Ventricular Rate 83 BPM Atrial Rate 83 BPM P-R Interval 132 ms QRS Duration 88 ms Q-T Interval 340 ms QTC Calculation(Bazett) 399 ms P [place] 65 degrees R [place] -38 degrees T [place] 2 degrees very poor tracing Confirmed by MD Ayon Roberto ([id number]) on 03/25/2017 3:25:19 PM XR Chest 2 Views (03/17/2017 1:44 PM) Specimen Performing Laboratory GE RIS Narrative [...] MD Report Verified Date/Time:03/17/2017 13:54:25 Reading Location: [address] Radiology Reading Room Procedure Note Interface, [...] Report Verified Date/Time: 03/17/2017 13:54:25 Reading Location: [address] Radiology Reading Room after 12/15/2016
--- OUTSIDE RECORDS SUMMARY | 2017-12-16 15:07 | XMS REPORT ---
:1935 [facility] Address [address] [place] [address] Care Team Providers Name Role Phone NAYELI ASHTON Fred Unavailable Unavailable Problems This patient has no known problems. Allergies, Adverse Reactions, Alerts This patient has no known allergies or adverse reactions. Medications This patient has no known medications. Results Test Description Test Time Test Comments Text Results Atomic Results Result Comments BLOOD CULTURE 2017-03-30 01:00:00 Test Item Value Reference Range Comments CULTURE (BEAKER) (test hwmh=7785) No growth in 5 days BLOOD [id number] 01:00:00 Test Item Value Reference Range Comments CULTURE (BEAKER) (test jhlf=2919) No growth in 5 days SPUTUM CULTURE + GRAM [id number] 11:21:00 Test Item Value Reference Range Comments CULTURE (BEAKER) (test bxxe=7212) Amikacin (test code=1) Aztreonam (test code=32) Cefepime (test code=51) Ceftazidime (test code=27) Ciprofloxacin (test code=7) Doripenem (test busz=929) Gentamicin (test code=18) Imipenem (test code=19) Levofloxacin (test code=22) Meropenem (test code=34) Piperacillin (test code=24) Piperacillin + Tazobactam (test code=29) Tobramycin (test code=25) CULTURE (BEAKER) (test PSEUDOMONAS AERUGINOSA 4+ Pseudomonas szjh=3883) (MUCOID-PHENOTYPE) aeruginosa Amikacin (test code=1) Aztreonam (test code=32) Cefepime (test code=51) Ceftazidime (test code=27) Ciprofloxacin (test code=7) Doripenem (test tuui=652) Gentamicin (test code=18) Imipenem (test code=19) Levofloxacin (test code=22) Meropenem (test code=34) Piperacillin (test code=24) Piperacillin + Tazobactam (test code=29) Tobramycin (test code=25) CULTURE (BEAKER) (test 4+ Pseudomonas nvwo=6287) aeruginosa (Mucoid-phenotype) GRAM STAIN RESULT 2+ WBCs (BEAKER) (test whor=2054) GRAM STAIN RESULT 0-5 epithelial cells (BEAKER) (test bvco=324586) GRAM STAIN RESULT 4+ gram negative rods (BEAKER) (test iilp=729627) GRAM STAIN RESULT 1+ gram positive cocci (BEAKER) (test in pairs and clusters hlsn=435003) GRAM STAIN RESULT <1+ yeast (BEAKER) (test zhbf=176048) 4+ Normal respiratory greyson presentCT, CHEST, WITH HIGH RESOLUTION, INTERSTITAL LUNG [id number] 08:41:00Compare to prior imagingFINAL REPORT CT of [...] small airways and airspace disease. Signed: Nikki Aguilraort Verified Date/Time: 03/27/2017 08: 41:17 Reading Location: [facility] Diagnostic Imaging Reading Room - [place] [id number] BASIC METABOLIC [id number] 05:50:00 Test Item Value Reference Range Comments SODIUM (BEAKER) (test 142 meq/L 136-145 bhhg=442) POTASSIUM (BEAKER) (test 3.7 meq/L 3.5-5.1 uihc=933) CHLORIDE (BEAKER) (test 107 meq/L 98-107 kfmo=541) CO2 (BEAKER) (test 27 meq/L 22-29 wrhx=506) BLOOD UREA NITROGEN 35 mg/dL 7-21 (BEAKER) (test ttns=833) CREATININE (BEAKER) (test 0.77 mg/dL 0.57-1.25 sxpd=121) GLUCOSE RANDOM (BEAKER) 113 mg/dL 70-105 (test kgfg=452) CALCIUM (BEAKER) (test 8.9 mg/dL 8.4-10.2 oczb=990) EGFR (BEAKER) (test 72 mL/min/1.73 sq m ESTIMATED GFR IS NOT ooui=7596) ACCURATE CREATININE CLEARANCE IN PREDICTING GLOMERULAR FILTRATION RATE. ESTIMATED GFR IS NOT APPLICABLE FOR DIALYSIS PATIENTS. HEPATIC FUNCTION [id number] 07:53:00 Test Item Value Reference Range Comments TOTAL PROTEIN (BEAKER) (test ukps=451) 6.5 gm/dL 6.0-8.3 ALBUMIN (BEAKER) (test glbn=0894) 3.4 g/dL 3.5-5.0 BILIRUBIN TOTAL (BEAKER) (test lmfq=142) 0.4 mg/dL 0.2-1.2 BILIRUBIN DIRECT (BEAKER) (test jxwk=271) 0.2 mg/dL 0.1-0.5 ALKALINE PHOSPHATASE (BEAKER) (test uopg=527) 110 U/L 40-150 AST (SGOT) (BEAKER) (test pzbg=731) 10 U/L 5-34 ALT (SGPT) (BEAKER) (test wwsr=744) 14 U/L 6-55 BASIC METABOLIC [id number] 07:53:00 Test Item Value Reference Range Comments SODIUM (BEAKER) (test 142 meq/L 136-145 denn=140) POTASSIUM (BEAKER) (test 3.9 meq/L 3.5-5.1 pmvc=991) CHLORIDE (BEAKER) (test 109 meq/L 98-107 teto=125) CO2 (BEAKER) (test 21 meq/L 22-29 zwpa=799) BLOOD UREA NITROGEN 30 mg/dL 7-21 (BEAKER) (test gpco=507) CREATININE (BEAKER) (test 0.82 mg/dL 0.57-1.25 grob=154) GLUCOSE RANDOM (BEAKER) 111 mg/dL 70-105 (test qaws=868) CALCIUM (BEAKER) (test 9.2 mg/dL 8.4-10.2 faei=495) EGFR (BEAKER) (test 67 mL/min/1.73 sq m ESTIMATED GFR IS NOT kqce=7470) ACCURATE CREATININE CLEARANCE IN PREDICTING GLOMERULAR FILTRATION RATE. ESTIMATED GFR IS NOT APPLICABLE FOR DIALYSIS PATIENTS. CBC (HEMOGRAM ONLY)2017-03-26 06:37:00 Test Item Value Reference Range Comments WHITE BLOOD CELL COUNT (BEAKER) (test atcg=055) 28.7 K/ L 3.5-10.5 RED BLOOD CELL COUNT (BEAKER) (test sayl=399) 4.67 M/ L 3.93-5.22 HEMOGLOBIN (BEAKER) (test qxdz=407) 13.1 GM/DL 11.2-15.7 HEMATOCRIT (BEAKER) (test qoyt=597) 43.2 % 34.1-44.9 MEAN CORPUSCULAR VOLUME (BEAKER) (test xauw=704) 92.5 fL 79.4-94.8 MEAN CORPUSCULAR HEMOGLOBIN (BEAKER) (test 28.1 pg 25.6-32.2 jxeb=984) MEAN CORPUSCULAR HEMOGLOBIN CONC (BEAKER) (test 30.3 GM/DL 32.2-35.5 vlbh=027) RED CELL DISTRIBUTION WIDTH (BEAKER) (test 14.3 % 11.7-14.4 bsmo=645) PLATELET COUNT (BEAKER) (test zfoh=152) 423 K/CU MM 150-450 MEAN PLATELET VOLUME (BEAKER) (test dzhy=075) 9.9 fL 9.4-12.3 NUCLEATED RED BLOOD CELLS (BEAKER) (test 0 /100 WBC 0-0 lkce=668) T4, [id number] 19:51:00 Test Item Value Reference Range Comments FREE T4 (BEAKER) (test hykt=197) 1.28 ng/dL 0.70-1.48 TSH/FREE T4 IF [id number] 19:02:00 Test Item Value Reference Range Comments THYROID STIMULATING HORMONE (BEAKER) (test 0.09 uIU/mL 0.35-4.94 dirm=896) INFLUENZA A H1N1 [id number] 14:59:00 Test Item Value Reference Range Comments INFLUENZA A RNA (BEAKER) (test Not Detected Not Detected, Inconclusive jafo=7637) NOVEL H1N1 RNA (BEAKER) (test Not Detected Not Detected, Inconclusive slzo=1338) These assays were performed by real-time RT-PCR (lunchroom attendant-PCR) utilizing fluorogenic hydrolysis probe technology for the detection of human Influenza A viruses and the differential detection of novel H1N1 Influenza virus in respiratory specimens. The test is composed of (1) an RNA extraction from patient specimen, and (2) lunchroom attendant-PCR amplification and detection with human Influenza A and novel W3E9-psqskttb primers and probes. A well-conserved region of [...] and its performance characteristics determined by the [facility] Pathology Department, Section of Molecular Pathology. It has not been cleared or approved by the U.S. Food and Drug Administration (FDA). SinceFDA approval is not required for clinical use of the test, validation was done as required by The Clinical Laboratory Amendments of 1988.These assays were performed by real-time RT-PCR (lunchroom attendant-PCR) utilizing fluorogenic hydrolysis probe technology for the detection of human Influenza A viruses and the differential detection of novel H1N1 Influenza virus in respiratory specimens. The test is composed of (1) an RNA extraction from patient specimen, and (2) lunchroom attendant-PCR amplification and detection with human Influenza A and novel G9V3-bvaduqnd primers and probes. A well-conserved region of [...] and its performance characteristics determined by the [facility] Pathology Department, Section of Molecular Pathology. It has not been cleared or approved by the U.S. Food and Drug Administration ( FDA). Since FDA approval is not required for clinical use of the test, validation was done as required by The Clinical Laboratory Amendments of 1988.BASIC METABOLIC [id number] 06:47:00 Test Item Value Reference Range Comments SODIUM (BEAKER) (test 143 meq/L 136-145 wwvy=129) POTASSIUM (BEAKER) (test 4.0 meq/L 3.5-5.1 Specimen slightly jolk=144) hemolyzed CHLORIDE (BEAKER) (test 109 meq/L 98-107 eqeq=512) CO2 (BEAKER) (test 25 meq/L 22-29 fcvd=550) BLOOD UREA NITROGEN 35 mg/dL 7-21 (BEAKER) (test jxcp=866) CREATININE (BEAKER) (test 0.77 mg/dL 0.57-1.25 Specimen slightly xicq=989) hemolyzed GLUCOSE RANDOM (BEAKER) 99 mg/dL 70-105 (test zyti=747) CALCIUM (BEAKER) (test 9.2 mg/dL 8.4-10.2 bufz=474) EGFR (BEAKER) (test 72 mL/min/1.73 sq m ESTIMATED GFR IS NOT osuh=2820) ACCURATE CREATININE CLEARANCE IN PREDICTING GLOMERULAR FILTRATION RATE. ESTIMATED GFR IS NOT APPLICABLE FOR DIALYSIS PATIENTS. CBC (HEMOGRAM ONLY)2017-03-25 06:45:00 Test Item Value Reference Range Comments WHITE BLOOD CELL COUNT (BEAKER) (test hotd=127) 25.9 K/ L 3.5-10.5 RED BLOOD CELL COUNT (BEAKER) (test eiub=898) 4.32 M/ L 3.93-5.22 HEMOGLOBIN (BEAKER) (test vcxq=033) 12.5 GM/DL 11.2-15.7 HEMATOCRIT (BEAKER) (test hcqf=876) 39.8 % 34.1-44.9 MEAN CORPUSCULAR VOLUME (BEAKER) (test skbq=123) 92.1 fL 79.4-94.8 MEAN CORPUSCULAR HEMOGLOBIN (BEAKER) (test 28.9 pg 25.6-32.2 glqk=593) MEAN CORPUSCULAR HEMOGLOBIN CONC (BEAKER) (test 31.4 GM/DL 32.2-35.5 eebx=007) RED CELL DISTRIBUTION WIDTH (BEAKER) (test 13.9 % 11.7-14.4 hckd=791) PLATELET COUNT (BEAKER) (test dcip=498) 363 K/CU MM 150-450 MEAN PLATELET VOLUME (BEAKER) (test yrwk=849) 9.8 fL 9.4-12.3 NUCLEATED RED BLOOD CELLS (BEAKER) (test 0 /100 WBC 0-0 xmfh=059) STREP PNEUMONIAE [id number] 21:41:00 Test Item Value Reference Range Comments STREP PNEUMONIAE ANTIGEN Presumptive negative for Presumptive negative for (BEAKER) (test pneumococcal pneumonia - pneumococcal pneumonia - whdn=5636) see comment see commen Presumptive negative for pneumococcal pneumonia, suggesting no current or recent pneumococcal infection. Infection due to S. pneumoniae cannot be ruled out since the antigen present in the sample may be below the detection limit of the test.LEGIONELLA ANTIGEN, [id number] 21:40:00 Test Item Value Reference Range Comments L. PNEUMOPHILA SEROGP 1 Negative - see Negative for L. UR AG (BEAKER) (test comment pneumophila serogroup 1 xlld=7941) antigen, suggesting no recent or current infection with this serogroup. Legionellosis cannot be ruled out since other serogroups and species may cause disease. RAPID INFLUENZA A&B [id number] 21:39:00 Test Item Value Reference Range Comments RAPID INFLUENZA A AG (BEAKER) (test Negative Negative, Inconclusive osti=0320) RAPID INFLUENZA B AG (BEAKER) (test Negative Negative, Inconclusive yksn=6816) CBC W/PLT COUNT & AUTO [id number] 18:13:00 Test Item Value Reference Range Comments WHITE BLOOD CELL COUNT (BEAKER) (test jhpw=994) 24.1 K/ L 3.5-10.5 RED BLOOD CELL COUNT (BEAKER) (test skzi=892) 4.80 M/ L 3.93-5.22 HEMOGLOBIN (BEAKER) (test yfrj=580) 14.0 GM/DL 11.2-15.7 HEMATOCRIT (BEAKER) (test eoxi=460) 45.1 % 34.1-44.9 MEAN CORPUSCULAR VOLUME (BEAKER) (test yqia=938) 94.0 fL 79.4-94.8 MEAN CORPUSCULAR HEMOGLOBIN (BEAKER) (test 29.2 pg 25.6-32.2 pwtz=071) MEAN CORPUSCULAR HEMOGLOBIN CONC (BEAKER) (test 31.0 GM/DL 32.2-35.5 xpbx=920) RED CELL DISTRIBUTION WIDTH (BEAKER) (test 14.2 % 11.7-14.4 ocya=539) PLATELET COUNT (BEAKER) (test gqpw=476) 492 K/CU MM 150-450 MEAN PLATELET VOLUME (BEAKER) (test cxsr=283) 9.8 fL 9.4-12.3 NUCLEATED RED BLOOD CELLS (BEAKER) (test 0 /100 WBC 0-0 opur=843) NEUTROPHILS RELATIVE PERCENT (BEAKER) (test 89 % yhvh=355) LYMPHOCYTES RELATIVE PERCENT (BEAKER) (test 8 % fqnk=175) MONOCYTES RELATIVE PERCENT (BEAKER) (test 2 % vjcv=893) EOSINOPHILS RELATIVE PERCENT (BEAKER) (test 0 % zsox=952) BASOPHILS RELATIVE PERCENT (BEAKER) (test 0 % jyzg=269) NEUTROPHILS ABSOLUTE COUNT (BEAKER) (test 21.53 K/ L 1.56-6.13 veld=715) LYMPHOCYTES ABSOLUTE COUNT (BEAKER) (test 1.87 K/ L 1.18-3.74 xhpx=727) MONOCYTES ABSOLUTE COUNT (BEAKER) (test 0.35 K/ L 0.24-0.36 myfm=405) EOSINOPHILS ABSOLUTE COUNT (BEAKER) (test 0.00 K/ L 0.04-0.36 obwe=700) BASOPHILS ABSOLUTE COUNT (BEAKER) (test 0.06 K/ L 0.01-0.08 kory=031) IMMATURE GRANULOCYTES-RELATIVE PERCENT (BEAKER) 1 % 0-1 (test cood=1105) (MANUAL DIFFERENTIAL)2017-03-24 18:13:00 Test Item Value Reference Range Comments NEUTROPHILS - REL (DIFF) (BEAKER) (test 86 % ebuq=3716) LYMPHOCYTES - REL (DIFF) (BEAKER) (test 10 % dfmz=5271) MONOCYTES - REL (DIFF) (BEAKER) (test dlit=0193) 2 % BANDS - REL (DIFF) (BEAKER) (test rner=6506) 2 % 0-10 NEUTROPHILS - ABS (DIFF) (BEAKER) (test 20.73 K/ L 1.80-8.00 xnec=9471) LYMPHOCYTES - ABS (DIFF) (BEAKER) (test 2.41 K/ L 1.48-4.50 vgrk=2193) MONOCYTES - ABS (DIFF) (BEAKER) (test llxe=1706) 0.48 K/ L 0.00-1.30 BANDS-ABS (DIFF) (BEAKER) (test zway=9562) 0.5 K/ L 0.0-0.8 TOTAL COUNTED (BEAKER) (test kcay=7782) 100 BANDS + SEGMENTED NEUTROPHILS (BEAKER) (test 21.21 oqio=5275) WBC MORPHOLOGY (BEAKER) (test xxpb=966) Normal GIANT PLATELETS (BEAKER) (test evzz=748) Present ANISOCYTOSIS (BEAKER) (test cwhy=706) 1+ few POLYCHROMATOPHILLIC RBCS(BEAKER) (test kobl=138) 1+ few POCT-LACTIC ACID, [id number] 17:31:00 Test Item Value Reference Range Comments POC-LACTIC ACID, VENOUS 1.8 mmol/L 0.9-1.7 TESTED AT [facility] [address] [facility] (BEAKER) (test hbeo=3986) [facility] [address] BASIC METABOLIC [id number] 15:20:00 Test Item Value Reference Range Comments SODIUM (BEAKER) (test 143 meq/L 136-145 zygg=950) POTASSIUM (BEAKER) (test 4.2 meq/L 3.5-5.1 mvbh=410) CHLORIDE (BEAKER) (test 107 meq/L 98-107 oydr=776) CO2 (BEAKER) (test 25 meq/L 22-29 medu=327) BLOOD UREA NITROGEN 32 mg/dL 7-21 (BEAKER) (test tejn=993) CREATININE (BEAKER) (test 1.12 mg/dL 0.57-1.25 grkp=809) GLUCOSE RANDOM (BEAKER) 157 mg/dL 70-105 (test osno=924) CALCIUM (BEAKER) (test 9.7 mg/dL 8.4-10.2 hdza=996) EGFR (BEAKER) (test 47 mL/min/1.73 sq m ESTIMATED GFR IS NOT erce=9058) ACCURATE CREATININE CLEARANCE IN PREDICTING GLOMERULAR FILTRATION RATE. ESTIMATED GFR IS NOT APPLICABLE FOR DIALYSIS PATIENTS. RAD, CHEST, 1 VIEW, NON [id number] 15:00:00Reason for exam:->SHORTNESS OF BREATHReason for exam:->COUGHShould this be performed at the bedside?-> YesFINAL REPORT AP chest HISTORY: Cough, shortness of breath COMPARISON: 03/17/2017, 10/30/2016. IMPRESSION:Stable cardiac silhouette. No acute osseous findings. Bibasilar opacities may reflect pneumonia or atelectasis. No large effusion. No pneumothorax. Consider contrast-enhanced chest CT for further evaluation. Signed: Bushra Markham MDReport Verified Date/ Time: 03/24/2017 15:00:31 Reading Location: [facility] Mammo Reading Room RAD , CHEST, 2 [id number] 13:54:00Reason for Exam:->hypoxemiaLocation-> [facility] HospitalFINAL REPORT PA and lateral chest HISTORY: [...] CT may be useful. Signed: Bushra [facility] Verified Date/Time: 03/17/2017 13:54:25 Reading Location: [address] Radiology Reading Room
[2017-12-16] MEDS ORDERED: ALBUTEROL 2.5 MG/3 ML NEB SOL ONE (15:48)
[2017-12-16] MEDS ORDERED: IPRATROPIUM BROM 0.5MG/2.5ML ONE (15:48)
[2017-12-16 16:13] LABS: Absolute Lymphocytes (CBC) 1.2 K/uL (0.7-4.9); Absolute Monocytes 0.4 K/uL (0.1-1.3); Absolute Neutrophil 17.1 K/uL (1.8-8.0); Basophils % 0.3 % (0-1.3); Eosinophils % 0.1 % (0-4.4); Hematocrit 40.4 % (36.0-45.0); Lymphocytes % 6.4 % (15.3-44.8); MCH 29.7 pg (27.0-35.0); MCV 90.7 fL (80-100); MPV 7.8 fL (7.6-11.3); Monocytes % 2.3 % (3.3-12.3); RBC Red Blood Cell Count 4.45 M/uL (3.86-4.86)
[2017-12-16 16:15] LABS: Protime INR 0.92
[2017-12-16 16:30] LABS: Albumin 3.3 g/dL (3.4-5.0); Bilirubin Direct 0.1 mg/dL (0-0.2); Bilirubin Total 0.6 mg/dL (0.2-1.0); Magnesium 2.6 mg/dL (1.8-2.4); Potassium 4.5 mmol/L (3.5-5.1); Protein, Total 6.5 g/dL (6.4-8.2)
[2017-12-16 16:32] LABS: Blood Morphology Comment NOT SEEN (NOT SEEN); Platelet Estimate ADEQ; Urine White Blood Cell Casts OK
--- NOTE | 2017-12-16 16:38 | RAD REPORT ---
EXAM DESCRIPTION: RAD - Chest Single View - 12/16/2017 4:27 pm CLINICAL HISTORY: DYSPNEA Chest pain. COMPARISON: CHEST PA AND LAT 2 VIEW dated 10/28/2014; CHEST PA AND LAT 2 VIEW dated 03/21/2014; CHEST PA AND LAT 2 VIEW dated 05/10/2013; CHEST PA AND LAT 2 VIEW dated 07/04/2012; CTANGIO CHEST FOR PE giovanni ed 10/28/2014 FINDINGS: Portable technique limits examination quality. Emphysematous changes are present throughout the lungs. Calcified nodule noted in the left lung base laterally. No focal infiltrate typical of pneumonia seen. The heart is normal in size. No displaced f ractures. IMPRESSION: Prominent COPD.
[2017-12-16] MEDS ORDERED: NA CHLORIDE 0.9% 1,000 ML ONE (17:15)
[2017-12-16] MEDS ORDERED: CEFTRIAXONE/SWI 1gm 0 GM/0 ML SYR ONE (17:16)
[2017-12-16] MEDS ORDERED: CEFTRIAXONE/SWI 1gm 1 GM/10 ML SYR ONE (17:18)
[2017-12-16] MEDS ORDERED: AZITHROMYCIN IV 500 MG in NA CHLORIDE 0.9% 250 ML IVPB ONE (18:00)
--- NOTE | 2017-12-16 18:17 | ER ---
Nurse's Notes [facility] Name: Mary Gonzales Age: 82 yrs Sex: Female : 1935 Arrival Date: 12/16/2017 Time: 15:07 Bed 15 Private MD: Lul Borrego Diagnosis: Chronic obstructive pulmonary disease with (acute) exacerbation;Dehydration;Renal Insufficiency Presentation: 12/16 15:29 Presenting complaint: Patient states: SOB and leg weakness for 2 weeks. Transition of care: patient was not received from another setting of care. Onset of symptoms was December 01, 2017. Risk Assessment: Do you want to hurt yourself or someone else? Patient reports no desire to harm self or others. Initial Sepsis Screen: Does the patient meet any 2 criteria? No. Patient's initial sepsis screen is negative. Does the patient have a suspected source of infection? No. Patient's initial sepsis screen is negative. Care prior to arrival: None. 15:29 Method Of Arrival: Ambulatory aj 15:29 Acuity: JOANNA 3 aj Triage Assessment: 15:32 General: Appears in no apparent distress. comfortable, Behavior is calm, cooperative, aj appropriate for age. Pain: Denies pain. Neuro: Level of Consciousness is awake, alert, obeys commands, Oriented to person, place, time, situation, Appropriate for age. Respiratory: Reports shortness of breath Airway is patent Respiratory effort is even, unlabored, Respiratory pattern is symmetrical, tachypnea. Derm: Skin is intact, is healthy with good turgor, Skin is pink, warm \\T\\ dry. normal. Musculoskeletal: Reports weakness in right leg and left leg. Historical: - Allergies: 15:32 Ultram; aj - Home Meds: 15:32 Norvasc Oral [Active]; Inderal LA Oral [Active]; Zyrtec Oral [Active]; aspirin 81 mg aj Oral TbEC 1 tab once daily [Active]; Brovana 15 mcg/2 mL inhalation nebu 2 mL 2 times per day [Active]; Xanax 0.25 mg Oral tab [Active]; Mucinex oral oral [Active]; Zoloft Oral [Active]; - PMHx: 15:32 COPD; Depression; Tremors; aj - PSHx: 15:32 Hysterectomy; Cholecystectomy; aj - Immunization history:: Adult Immunizations up to date. - Social history:: Smoking status: Patient/guardian denies using tobacco. - Ebola Screening: : Patient negative for fever greater than or equal to 101.5 degrees Fahrenheit, and additional compatible Ebola Virus Disease symptoms Patient denies exposure to infectious person Patient denies travel to an Ebola-affected area in the 21 days before illness onset No symptoms or risks identified at this time. Screenin:35 Abuse screen: Denies threats or abuse. Nutritional screening: No deficits noted. rb1 Tuberculosis screening: No symptoms or risk factors identified. Fall Risk None identified. Assessment: 15:35 General: Appears in no apparent distress. comfortable, Behavior is calm, cooperative, rb1 Denies fever. Pain: Complains of pain in back- left side of ribs Pain currently is 5 out of 10 on a pain scale. Pain began x 1 week. Neuro: Level of Consciousness is awake, alert, obeys commands, Oriented to person, place, time, situation, Tremors noted.. Reports weakness in left leg and right leg since x 1week. Cardiovascular: Capillary refill < 3 seconds is brisk in bilateral fingers. Respiratory: Reports shortness of breath at rest since Chronic SOB but has gotten worse this past week cough that is productive, yellow/green sputum Airway is patent Respiratory effort is even, labored, Respiratory pattern is regular, symmetrical, Breath sounds are diminished in left posterior lower lobe Breath sounds with wheezes bilaterally. GI: Reports diarrhea, nausea, vomiting, since x 2 days, pt. stated, "I always have diarrhea, it's my normal." Pt. has seen a GI specialist. : Reports urinary frequency. Derm: Skin is pink, warm \\T\\ dry. Musculoskeletal: Range of motion: intact in all extremities. 16:30 Reassessment: Patient appears in no apparent distress at this time. Patient and/or rb1 family updated on plan of care and expected duration. Pain level reassessed. Patient is alert, oriented x 3, equal unlabored respirations, skin warm/dry/pink. Daughter at bedside. 17:30 Reassessment: Patient appears in no apparent distress at this time. No changes from rb1 previously documented assessment. 18:28 Reassessment: Patient appears in no apparent distress at this time. Patient and/or rb1 family updated on plan of care and expected duration. Pain level reassessed. Patient is alert, oriented x 3, equal unlabored respirations, skin warm/dry/pink. Discharge pending due to antibiotics infusing. 19:14 Reassessment: IV finished infusing. rb1 Vital Signs: 15:32 BP 127 / 66; Pulse 80; Resp 22; Temp 97.0; Pulse Ox 91% on R/A; Weight 63.5 kg; Height aj 5 ft. 6 in. (167.64 cm); 16:30 BP 113 / 59; Pulse 66; Resp 19; Pulse Ox 95% on R/A; dh3 17:29 BP 119 / 56; Pulse 66; Resp 19; Pulse Ox 94% on R/A; dh3 18:28 BP 127 / 68; Pulse 71; Resp 17; Pulse Ox 97% on R/A; rb1 19:13 BP 111 / 72; Pulse 81; Resp 19; Pulse Ox 96% on R/A; rb1 15:32 Body Mass Index 22.60 (63.50 kg, 167.64 cm) aj ED Course: 15:07 Patient arrived in ED. rg4 15:07 Lul Borrego MD is Private Physician. rg4 15:29 Triage completed. aj 15:32 Arm band placed on left wrist. Patient placed in an exam room. aj 15:34 Nury Lucia, RN is Primary Nurse. rb1 15:35 Patient has correct armband on for positive identification. Placed in gown. Bed in low rb1 position. Call light in reach. Side rails up X 1. equipment monitor phototypesetting on. Pulse ox on. NIBP on. 15:37 [facility] jr8 15:37 Gary Galvez MD is Attending Physician. jr8 16:07 Initial lab(s) drawn, by hi, sent to lab. Inserted saline lock: 20 gauge in right dh3 antecubital area, using aseptic technique. Blood collected. 16:16 EKG done, by indoor plant technician. reviewed by Edouard FOWLER. 3 16:26 X-ray completed. Portable x-ray completed in exam room. Patient tolerated procedure ml well. 16:27 XRAY Chest (1 view) In Process Unspecified. EDMS 19:14 No provider procedures requiring assistance completed. IV discontinued, intact, rb1 bleeding controlled, No redness/swelling at site. Pressure dressing applied. Administered Medications: 17:10 Drug: NS 0.9% 1000 ml Route: IV; Rate: 1000 ml; Site: right antecubital; rb1 18:12 Follow up: IV Status: Completed infusion rb1 17:10 Drug: Rocephin 1 grams Route: IV; Rate: calculated rate; Site: right antecubital; rb1 19:08 Follow up: Response: No adverse reaction; IV Status: Completed infusion rb1 17:49 Drug: Zithromax 500 mg Route: IVPB; Infused Over: 1 hrs; Site: right antecubital; rb1 19:10 Follow up: Response: No adverse reaction; IV Status: Completed infusion rb1 Outcome: 18:17 Discharge ordered by . joao 19:14 Discharged to home ambulatory, with family. rb1 19:14 Condition: stable 19:14 Discharge instructions given to patient, Instructed on discharge instructions, follow up and referral plans. medication usage, Demonstrated understanding of instructions, follow-up care, medications, Prescriptions given X 2. 19:14 Patient left the ED. rb1 Signatures: Dispatcher [employer] EDMS Maribel Montenegro RN RN aj Lopez, Melissa ml Roszak, Josh, PA PA jr8 Nury Lucia RN RN rb1 Monserrat Huggins rg4 Theresa Birmingham 3 Paula Fletcher 3 Corrections: (The following items were deleted from the chart) 17:50 15:10 NS 0.9% 1000 ml IV at 1000 ml in right antecubital rb1 rb1 19:22 19:22 Patient left the ED. rb1 rb1
--- NOTE | 2017-12-16 18:18 | EDPHYS ---
Physician Documentation [facility] Name: Mary Gonzales Age: 82 yrs Sex: Female : 1935 Arrival Date: 12/16/2017 Time: 15:07 Bed 15 Private MD: Lul Borrego ED Physician Gary Galvez HPI: 12/16 15:51 This 82 yrs old Female presents to ER via Ambulatory with complaints of jr8 Weakness, Shortness Of Breath. 15:51 The patient has shortness of breath at rest. Onset: The symptoms/episode began/occurred jr8 gradually, 2 week(s) ago, and became worse. Duration: The symptoms are continuous. The patient's shortness of breath is aggravated by talking, walking. Associated signs and symptoms: Pertinent positives: general weakness. Severity of symptoms: At their worst the symptoms were moderate in the emergency department the symptoms are unchanged. The patient has not experienced similar symptoms in the past. The patient has not recently seen a physician. History of COPD. Suppose to be on home oxygen but is non compliant with it. Stated that she takes all of her medications regularly though. Started with increased shortness of breath for the past couple of weeks that has progressively become worse. Noticed that when she walks she feels weaker then normal as well . Historical: - Allergies: 15:32 Ultram; aj - Home Meds: 15:32 Norvasc Oral [Active]; Inderal LA Oral [Active]; Zyrtec Oral [Active]; aspirin 81 mg aj Oral TbEC 1 tab once daily [Active]; Brovana 15 mcg/2 mL inhalation nebu 2 mL 2 times per day [Active]; Xanax 0.25 mg Oral tab [Active]; Mucinex oral oral [Active]; Zoloft Oral [Active]; - PMHx: 15:32 COPD; Depression; Tremors; aj - PSHx: 15:32 Hysterectomy; Cholecystectomy; aj - Immunization history:: Adult Immunizations up to date. - Social history:: Smoking status: Patient/guardian denies using tobacco. - Ebola Screening: : Patient negative for fever greater than or equal to 101.5 degrees Fahrenheit, and additional compatible Ebola Virus Disease symptoms Patient denies exposure to infectious person Patient denies travel to an Ebola-affected area in the 21 days before illness onset No symptoms or risks identified at this time. ROS: 15:51 Eyes: Negative for injury, pain, redness, and discharge, ENT: Negative for injury, jr8 pain, and discharge, Neck: Negative for injury, pain, and swelling, Cardiovascular: Negative for chest pain, palpitations, and edema, Abdomen/GI: Negative for abdominal pain, nausea, vomiting, diarrhea, and constipation, Back: Negative for injury and pain, MS/Extremity: Negative for injury and deformity, Skin: Negative for injury, rash, and discoloration. 15:51 Respiratory: Positive for cough, dyspnea on exertion, shortness of breath, wheezing. 15:51 Neuro: Positive for tremor, weakness, Negative for altered mental status, dizziness, gait disturbance, headache, hearing loss, loss of consciousness, numbness, seizure activity, speech changes, syncope, near syncope, tingling, tinnitus, visual changes. Exam: 15:51 Eyes: Pupils equal round and reactive to light, extra-ocular motions intact. Lids and jr8 lashes normal. Conjunctiva and sclera are non-icteric and not injected. Cornea within normal limits. Periorbital areas with no swelling, redness, or edema. ENT: Nares patent. No nasal discharge, no septal abnormalities noted. Tympanic membranes are normal and external auditory canals are clear. Oropharynx with no redness, swelling, or masses, exudates, or evidence of obstruction, uvula midline. Mucous membranes moist. Neck: Trachea midline, no thyromegaly or masses palpated, and no cervical lymphadenopathy. Supple, full range of motion without nuchal rigidity, or vertebral point tenderness. No Meningismus. Cardiovascular: Regular rate and rhythm with a normal S1 and S2. No gallops, murmurs, or rubs. Normal PMI, no JVD. No pulse deficits. Abdomen/GI: Soft, non-tender, with normal bowel sounds. No distension or tympany. No guarding or rebound. No evidence of tenderness throughout. Back: No spinal tenderness. No costovertebral tenderness. Full range of motion. Skin: Warm, dry with normal turgor. Normal color with no rashes, no lesions, and no evidence of cellulitis. MS/ Extremity: Pulses equal, no cyanosis. Neurovascular intact. Full, normal range of motion. Neuro: Awake and alert, GCS 15, oriented to person, place, time, and situation. Cranial nerves II-XII grossly intact. Motor strength 5/5 in all extremities. Sensory grossly intact. Cerebellar exam normal. Normal gait. Essential tremor noted which patient has longstanding history of Vital Signs: 15:32 BP 127 / 66; Pulse 80; Resp 22; Temp 97.0; Pulse Ox 91% on R/A; Weight 63.5 kg; Height aj 5 ft. 6 in. (167.64 cm); 16:30 BP 113 / 59; Pulse 66; Resp 19; Pulse Ox 95% on R/A; dh3 17:29 BP 119 / 56; Pulse 66; Resp 19; Pulse Ox 94% on R/A; dh3 18:28 BP 127 / 68; Pulse 71; Resp 17; Pulse Ox 97% on R/A; rb1 19:13 BP 111 / 72; Pulse 81; Resp 19; Pulse Ox 96% on R/A; rb1 15:32 Body Mass Index 22.60 (63.50 kg, 167.64 cm) MDM: 15:37 Patient medically screened. [facility] 17:08 Data reviewed: vital signs, nurses notes, lab test result(s), EKG, radiologic studies, [facility] plain films, and as a result, I will discharge patient. Data interpreted: Pulse oximetry: on room air is 94 %. Interpretation: acceptable. Counseling: I had a detailed discussion with the patient and/or guardian regarding: the historical points, exam findings, and any diagnostic results supporting the discharge/admit diagnosis, lab results, radiology results, the need for outpatient follow up, a family practitioner, Nephrology, to return to the emergency department if symptoms worsen or persist or if there are any questions or concerns that arise at home. ED course: Patient feeling better. Discussed with her that she has elevated WBC count and is prerenal azotemic secondary to dehydration most likely. Mag is slightly elevated. Would need to see seed specialist and PCP. Will cover for infection. Offered to have her admitted and observed here to insure she remained stable but patient insists on going home and following up out patient perry . 12/16 15:37 Order name: Basic Metabolic Panel; Complete Time: 16:53 8 12/16 15:37 Order name: CBC with Diff; Complete Time: 16:53 [facility] 12/16 15:37 Order name: LFT's; Complete Time: 16:53 12/16 15:37 Order name: Magnesium; Complete Time: 16:53 12/16 15:37 Order name: NT PRO-BNP; Complete Time: 16:53 12/16 15:37 Order name: PT-INR; Complete Time: 16:19 12/16 15:37 Order name: Troponin (emerg Dept Use Only); Complete Time: 16:53 12/16 15:37 Order name: XRAY Chest (1 view); Complete Time: 16:53 12/16 15:37 Order name: EKG; Complete Time: 15:38 12/16 15:37 Order name: Cardiac monitoring; Complete Time: 16:21 12/16 16:18 Order name: CBC Smear Scan; Complete Time: 16:53 EDLA 12/16 15:37 Order name: EKG - Nurse/Tech; Complete Time: 16:08 12/16 15:37 Order name: IV Saline Lock; Complete Time: 16:08 12/16 15:37 Order name: Labs collected and sent; Complete Time: 16:12/16 15:37 Order name: O2 Per Protocol; Complete Time: 16:12/16 15:37 Order name: O2 Sat Monitoring; Complete Time: 16: Administered Medications: 17:10 Drug: NS 0.9% 1000 ml Route: IV; Rate: 1000 ml; Site: right antecubital; rb1 18:12 Follow up: IV Status: Completed infusion rb1 17:10 Drug: Rocephin 1 grams Route: IV; Rate: calculated rate; Site: right antecubital; rb1 19:08 Follow up: Response: No adverse reaction; IV Status: Completed infusion rb1 17:49 Drug: Zithromax 500 mg Route: IVPB; Infused Over: 1 hrs; Site: right antecubital; rb1 19:10 Follow up: Response: No adverse reaction; IV Status: Completed infusion rb1 Disposition: 12/17 06:58 Co-signature as Attending Physician, Gary Galvez MD. rn Disposition: 12/16/17 18:17 Discharged to Home. Impression: Chronic obstructive pulmonary disease with (acute) exacerbation, Dehydration, Renal Insufficiency . - Condition is Stable. - Discharge Instructions: Chronic Obstructive Pulmonary Disease, Dehydration, Adult. - Prescriptions for Zithromax Z- Lázaro 250 mg Oral Tablet - take 1 tablet by ORAL route as directed for 5 days Day 1 - take two (2) tablets one time. Day 2, 3, 4 , 5 take one (1) tablet once daily.; 6 tablet. Albuterol Sulfate 2.5 mg /3 mL (0.083 %) Inhalation Solution for Nebulization - inhale 1 unit by NEBULIZATION route every 6 hours As needed; 1 box. - Medication Reconciliation Form, Thank You Letter, Antibiotic Education, Prescription Opioid Use form. - Follow up: Private Physician; When: 2 - 3 days; Reason: Recheck today's complaints, Continuance of care, Re-evaluation by your physician. - Problem is new. - Symptoms have improved. Signatures: Dispatcher [employer] EDMaribel Guajardo RN RN Gary Hunter MD MD rn Roszak, Josh, PA PA jr8 Nury Lucia RN RN rb1 Corrections: (The following items were deleted from the chart) 12/16 19:22 18:17 12/16/2017 18:17 Discharged to Home. Impression: Chronic obstructive pulmonary rb1 disease with (acute) exacerbation; Dehydration; Renal Insufficiency . Condition is Stable. Forms are Medication Reconciliation Form, Thank You Letter, Antibiotic Education, Prescription Opioid Use. Follow up: Private Physician; When: 2 - 3 days; Reason: Recheck today's complaints, Continuance of care, Re-evaluation by your physician. Problem is new. Symptoms have improved. jr8
[2017-12-16 19:27] VITALS: TEMP 97
[2017-12-16 19:31] VITALS: BP 111/72; O2SAT 96
--- NOTE | 2017-12-16 21:32 | EKG ---
Test Date: 2017-12-16 Test Time: 15:59:11 [employer] Mechanic: TERRY MEASUREMENT RESULTS: Intervals: Rate: 67 NM: 130 QRSD: 80 QT: 372 QTc: [address] [place]: P: 35 NM: 130 QRS: -48 T: 15 INTERPRETIVE STATEMENTS: Normal sinus rhythm Left anterior fascicular block Nonspecific ST and T wave abnormality Abnormal ECG Compared to ECG 10/28/2014 17:11:00 ST (T wave) deviation now present Electronically Signed On 12-16-17 21:31:33 CDT by Dieudonne Wallace
== END 2017-12-16 19:22 | disposition home or self-care (01) ==
LOC: ER 15:04
DX: J44.1 Chronic obstructive pulmonary disease with (acute) exacerbation (principal); E86.0 Dehydration; N28.9 Disorder of kidney and ureter, unspecified; F32.9 Major depressive disorder, single episode, unspecified; Z79.82 Long term (current) use of aspirin; Z88.8 Allergy status to other drugs, medicaments and biological substances
CPT/HCPCS: 36415; 71045; 80048; 80076; 83735; 83880; 84484; 85025; 85610; 93005; 96361; 96365; 96366; 96368; 99285; J0456; J0696; J7030

== ENCOUNTER 2018-03-26 13:35 | Emergency (ER) | payer OTHER ==
--- OUTSIDE RECORDS SUMMARY | 2018-03-26 13:38 | XMS REPORT | Clinical Summary ---
:1935 Author Organization [facility] Address [address] [place] [address] Phone Care Team Providers Name Role Phone Unavailable Primary Care Provider Unavailable Allergies Active Allergy Reactions Severity Noted Date Comments Tramadol Itching, Rash Low 10/12/2013 Current Medications Prescription Sig. Disp. Refills Start End Date Status Date ALPRAZolam (XANAX) Take 0.25 mg by Active 0.25 MG tablet mouth every night as needed. arformoterol Take 15 mcg by Active (BROVANA) 15 mcg/2 nebulization 2 mL nebulizer (two) times daily. solution cholecalciferol, Take by mouth Active vitamin D3, 50,000 daily . unit Tab aspirin 81 MG EC Take 81 mg by Active tablet mouth daily. cetirizine (ZYRTEC) Take 10 mg by Active 10 MG tablet mouth daily. levothyroxine Take 1 tablet (88 30 tablet 0 Active (SYNTHROID, mcg total) by 7 LEVOTHROID) 88 MCG mouth Every tablet morning on an empty stomach. azithromycin Take 250 mg by Active (ZITHROMAX) 250 MG mouth daily Take tabletIndications: by mouth as bronchiectasis directed. . omeprazole Take 40 mg by Active (PRILOSEC) 40 MG mouth daily. capsuleIndications: Gastric Ulcer furosemide (LASIX) Take 1 tablet (20 20 tablet 0 02/18/20 Active 20 MG tablet mg total) by mouth 8 19 daily. propranolol Take 1 tablet (40 90 tablet 0 02/17/20 Active (INDERAL) 40 MG mg total) by mouth 8 19 tablet 3 (three) times daily. guaiFENesin Take 1 tablet (600 60 tablet 11 02/19/20 Active (MUCINEX) 600 mg 12 mg total) by mouth 8 19 hr tablet 2 (two) times daily. azithromycin Take by mouth 03/27/20 Discontinued (ZITHROMAX) 250 MG daily. Take by 17 tablet mouth as directed. sertraline (ZOLOFT) Take 25 mg by 03/26/20 Discontinued 25 MG tablet mouth daily. 17 propranolol Take 10 mg by 03/26/20 Discontinued (INDERAL) 10 MG mouth 3 (three) 17 tablet times daily. levothyroxine Take 100 mcg by 03/27/20 Discontinued (SYNTHROID, mouth Every 17 LEVOTHROID) 100 MCG morning on an tablet empty stomach. propranolol Take 0.5 tablets 90 tablet 0 03/27/20 Discontinued (INDERAL) 20 MG (10 mg total) by 7 17 tablet mouth 3 (three) times daily. amLODIPine Take 10 mg by 02/17/20 Discontinued (NORVASC) 10 MG mouth daily. 18 tablet propranolol Take 20 mg by 02/17/20 Discontinued (INDERAL) 20 MG mouth 3 (three) 18 tablet times daily. famotidine (PEPCID) Take 1 tablet (20 28 tablet 0 04/10/20 20 MG tablet mg total) by mouth 7 17 2 (two) times daily for 14 days To protect your stomach while you are on steroids. azithromycin Take 1 tablet (250 30 tablet 0 04/26/20 (ZITHROMAX) 250 MG mg total) by mouth 7 17 tablet daily for 30 days Take chronically for MAC infection. predniSONE Take 1 tablet (10 28 tablet 0 04/10/20 (DELTASONE) 10 MG mg total) by mouth 7 17 tablet 2 (two) times daily for 14 days. levoFLOXacin Take 1 tablet (750 5 tablet 0 03/31/20 (LEVAQUIN) 750 MG mg total) by mouth 7 17 tablet daily for 5 days Finish these antibiotics for pneumonia. predniSONE Take 30 mg by 02/17/20 Discontinued (DELTASONE) 20 MG mouth daily. 18 tablet predniSONE Take 1 tablet (20 30 tablet 0 03/19/20 (DELTASONE) 20 MG mg total) by mouth 8 18 tablet daily for 30 days. cefTAZidime Inject 1 g 0 02/25/20 (FORTAZ) MBP 1 g in intravenously 8 18 100 mL NS every 8 (eight) hours for 6 days. melatonin 3 mg Tab Take 1 tablet (3 30 tablet 0 03/20/20 tablet mg total) by mouth 8 18 nightly for 30 days. 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) 03/24/2017 Bronchiectasis ([facility]) 10/24/2015 SOB (shortness of breath) 10/29/2014 Overview: CXR clear On Vanco/zosyn, azithro methylprednisone 40 mg IV q 6hr Cultures pending or negative thus far Pneumonia 10/12/2013 Bronchiectasis with acute exacerbation ([facility]) Essential tremor Hypertension Encounters Date Type Specialty Care Team Description 02/13/2018 Procedure Pass Gastroenterology 02/13/2018 Surgery Gastroenterology Naty, FRANK Villeda MD 02/12/2018 Anesthesia Event Gastroenterology Nafisa Koch MD 02/10/2018 - Hospital Encounter Cardiology Abisai Woody Bronchiectasis with 02/18/2018 MD Teddy acute exacerbation Gita Patel ([facility]);ANGEL LUIS Cleveland MD (supraventricular Mezrahi, Yuki, tachycardia) ([facility]);Cognitive decline;Executive function deficit;Acute encephalopathy;Acute kidney injury ([facility]);Pneumonia due to Pseudomonas species, unspecified laterality, unspecified part of lung ([facility]) 02/10/2018 Orders Only Internal Medicine Fernando Juárez MD 02/03/2018 Outside Orders Socrates Alfonso MD 03/24/2017 - Hospital Encounter Cardiology Bj Sandoval COPD exacerbation 03/27/2017 MD Fred ([facility]) (Primary Mendez, Baldo Dx);Hypoxia;SOB MD Luis (shortness of Sohpie, Fang-Mireille, breath);Cough;Leukocy MD marion, unspecified type;Bronchiectasis with acute exacerbation ([facility]);Essential tremor;Essential hypertension;Communit y acquired pneumonia, unspecified laterality;Current chronic use of systemic steroids;Acquired hypothyroidism;Acute kidney injury (HCC);Chronic respiratory failure with hypoxia (HCC);Mycobacterial infection, non-TB after 03/25/2017 Social History Tobacco Use Types Packs/Day Years Used Date Never Smoker Smokeless Tobacco: Never Used Alcohol Use Drinks/Week oz/Week Comments No Sex Assigned at Date Recorded Not on file Last Filed Vital Signs Vital Sign Reading Time Taken Blood Pressure 130/63 02/18/2018 7:00 AM CDT Pulse 66 02/18/2018 9:45 AM CDT Temperature 35.9 C (96.6 F) 02/18/2018 7:00 AM CDT Respiratory Rate 18 02/18/2018 9:45 AM CDT Oxygen Saturation 96% 02/18/2018 9:45 AM CDT Inhaled Oxygen Concentration - - Weight 63.3 kg (139 lb 8 oz) 02/18/2018 4:25 AM CDT Height 170.2 cm (5' 7") 02/13/2018 8:55 AM CDT Body Mass Index 21.85 02/18/2018 4:25 AM CDT Plan of Treatment Date Type Specialty Care Team Description 03/31/2018 Office Visit Geriatric Medicine Rita Bradshaw MD [address] [facility] [address] [facility] [place] [address] Procedures Procedure Name Priority Date/Time Associated Diagnosis Comments BRONCHOSCOPY 02/13/2018 9:00 AM CDT Bronchiectasis without complication (HCC) Case Notes OK'D BY RICKY after 03/25/2017 Results RHYTHM STRIP - SCAN (02/19/2018 8:50 AM)Only the most recent of3 resultswithin the time period is included.XR chest 1 view portable / bedside (02/18/2018 11: 43 AM) Specimen Performing Laboratory GE RIS Narrative FINAL REPORT Chest one view INDICATION: Post PICC line COMPARISON: 02/10/2018 IMPRESSION: A right PICC line extends to the right atrium. Advise retraction 3 cm. No pneumothorax is seen. Interstitial reticulation and bibasilar opacities are suspicious for pneumonitis. Aspiration cannot be excluded. No significant pleural effusion is seen. The cardiomediastinal contours are stable. The bones appear unchanged. Signed: Valeriy Pollack MD Report Verified Date/Time:02/18/2018 12:37:39 Reading Location: [facility] Radiology Reading Room Procedure Note Interface, External Ris In - 02/18/2018 12:44 PM CDT FINAL REPORT Chest one view INDICATION: Post PICC line COMPARISON: 02/10/2018 IMPRESSION: A right PICC line extends to the right atrium. Advise retraction 3 cm. No pneumothorax is seen. Interstitial reticulation and bibasilar opacities are suspicious for pneumonitis. Aspiration cannot be excluded. No significant pleural effusion is seen. The cardiomediastinal contours are stable. The bones appear unchanged. Signed: Valeriy Pollack MD Report Verified Date/Time: 02/18/2018 12:37:39 Reading Location: [facility] Radiology Reading Room -Glucose meter (02/18/2018 11:41 AM)Only the most recent of27 resultswithin the time period is included. Component Value Ref Range POC-Glucose Meter 114 (H)Comment: TESTED AT [address] 70 - 110 mg/[place] [address] Specimen Performing Laboratory Blood [address] [address] BUN and Creatinine (02/18/2018 4:42 AM)Only the most recent of4 resultswithin the time period is included. Component Value Ref Range BUN 29 (H) 7 - 21 mg/dL Creatinine 0.91 0.57 - 1.25 mg/dL EGFR 59Comment: ESTIMATED GFR IS NOT ACCURATE mL/min/1.73 sq m CREATININE CLEARANCE IN PREDICTING GLOMERULAR FILTRATION RATE. ESTIMATED GFR IS NOT APPLICABLE FOR DIALYSIS PATIENTS. Specimen Performing Laboratory Blood [address] [address] CBC (Hemogram only) (02/18/2018 4:42 AM)Only the most recent of3 resultswithin the time period is included. Component Value Ref Range WBC 20.4 (H) 3.5 - 10.5 K/L RBC 4.12 3.93 - 5.22 M/L Hemoglobin 11.8 11.2 - 15.7 GM/DL Hematocrit 39.1 34.1 - 44.9 % MCV 94.9 (H) 79.4 - 94.8 fL MCH 28.6 25.6 - 32.2 pg MCHC 30.2 (L) 32.2 - 35.5 GM/DL RDW 15.4 (H) 11.7 - 14.4 % Platelets 236 150 - 450 K/CU MM MPV 9.7 9.4 - 12.3 fL nRBC 0 0 - 0 /100 WBC Specimen Performing Laboratory Blood [address] [address] Sputum Culture + Gram Stain (02/17/2018 9:58 AM)Only the most recent of2 resultswithin the time period is included. Component Value Ref Range Result 4+ Pseudomonas aeruginosa (A) Gram Stain Result 4+ White blood cells seen Gram Stain Result 0-5 epithelial cells Gram Stain Result 4+ gram variable rods Gram Stain Result <1+ gram positive cocci in pairs Specimen Performing Laboratory Sputum - Expectorated [address] [address] Narrative 2+ Normal respiratory greyson present Organism Antibiotic Method Susceptibility Pseudomonas aeruginosa Amikacin <=8: Susceptible Pseudomonas aeruginosa Aztreonam <=4: Susceptible Pseudomonas aeruginosa Cefepime 16: Resistant Pseudomonas aeruginosa Ceftazidime 4: Susceptible Pseudomonas aeruginosa Ciprofloxacin >2: Resistant Pseudomonas aeruginosa Gentamicin <=2: Susceptible Pseudomonas aeruginosa Levofloxacin >8: Resistant Pseudomonas aeruginosa Piperacillin <=16: Susceptible Pseudomonas aeruginosa Piperacillin + Tazobactam <=8: Susceptible Pseudomonas aeruginosa Tobramycin <=2: Susceptible Basic Metabolic Panel (02/16/2018 6:56 AM)Only the most recent of10 resultswithin the time period is included. Component Value Ref Range Sodium 141 136 - 145 meq/L Potassium 3.9 3.5 - 5.1 meq/L Chloride 103 98 - 107 meq/L CO2 32 (H) 22 - 29 meq/L BUN 32 (H) 7 - 21 mg/dL Creatinine 0.87 0.57 - 1.25 mg/dL Glucose 70 70 - 105 mg/dL Calcium 9.1 8.4 - 10.2 mg/dL EGFR 63Comment: ESTIMATED GFR IS NOT ACCURATE mL/min/1.73 sq m CREATININE CLEARANCE IN PREDICTING GLOMERULAR FILTRATION RATE. ESTIMATED GFR IS NOT APPLICABLE FOR DIALYSIS PATIENTS. Specimen Performing Laboratory Blood - Arm, [address] [address] CBC with platelet count + automated diff (02/16/2018 4:54 AM)Only the most recent of6 resultswithin the time period is included. Component Value Ref Range WBC 17.4 (H) 3.5 - 10.5 K/L RBC 4.38 3.93 - 5.22 M/L Hemoglobin 12.7 11.2 - 15.7 GM/DL Hematocrit 43.0 34.1 - 44.9 % MCV 98.2 (H) 79.4 - 94.8 fL MCH 29.0 25.6 - 32.2 pg MCHC 29.5 (L) 32.2 - 35.5 GM/DL RDW 15.9 (H) 11.7 - 14.4 % Platelets 175 150 - 450 K/CU MM MPV 11.0 9.4 - 12.3 fL nRBC 0 0 - 0 /100 WBC % Neutros 70 % % Lymphs 20 % % Monos 7 % % Eos 0 % % Baso 0 % # Neutros 12.08 (H) 1.56 - 6.13 K/L # Lymphs 3.43 1.18 - 3.74 K/L # Monos 1.25 (H) 0.24 - 0.36 K/L # Eos 0.02 (L) 0.04 - 0.36 K/L # Baso 0.01 0.01 - 0.08 K/L Immature Granulocytes-Relative 3 (H) 0 - 1 % Specimen Performing Laboratory Blood - Arm, [address] [address] CBC with platelet count + automated diff (02/16/2018 4:54 AM)Only the most recent of6 resultswithin the time period is included. Specimen Performing Laboratory Blood Narrative The following orders were created for panel order CBC with platelet count + automated diff. Procedure Abnormality Status --------- ------ CBC with platelet count ...[[id number]]AbnormalFinal result Please view results for these tests on the individual orders. TSH/Free T4 If Indicated (02/15/2018 2:52 AM)Only the most recent of2 resultswithin the time period is included. Component Value Ref Range TSH 1.16 0.35 - 4.94 uIU/mL Specimen Performing Laboratory Blood [address] [address] Vancomycin level, trough (02/15/2018 2:52 AM)Only the most recent of2 resultswithin the time period is included. Component Value Ref Range Vancomycin Tr 16.1 10.0 - 20.0 ug/mL Specimen Performing Laboratory Blood [address] [address] Manual Differential (02/15/2018 2:40 AM)Only the most recent of2 resultswithin the time period is included. Component Value Ref Range % Neutros 75 % % Lymphs 16 % % Monos 8 % % Atypical Lymphs 1 (H) 0 - 0 % # Neutros 14.25 (H) 1.56 - 6.13 K/ul # Lymphs 3.04 1.18 - 3.74 K/ul # Monos 1.52 (H) 0.24 - 0.36 K/uL # Atypical Lymphs 0.19 (H) 0.00 - 0.00 K/uL Total Counted 100 nRBC (manual) 1 (H) 0 - 0 /100 WBC Platelet Morphology Normal Smudge Cells Present Anisocytosis 2+ moderate Microcytes 2+ moderate Elliptocytes 1+ few Tear Drop Cells 1+ few Platelet Conc Adequate Specimen Performing Laboratory Blood [address] [address] Narrative Received comment: User comments: Slide comments: Blood gas, venous (02/14/2018 1:36 PM) Component Value Ref Range pH, Moise 7.37 7.32 - 7.42 pCO2, Moise 57 (H) 41 - 51 mmHg pO2, Moise 77 (H) 25 - 40 mmHg O2 Sat, Moise 94.6 (H) 40.0 - 70.0 % HCO3, Moise 32 (H) 21 - 29 mmol/L Base Excess, Moise 5.2 (H) -2.0 - 3.0 mmol/L Patient Temperature 37.0 C FIO2 21.0 % Specimen Performing Laboratory Blood [address] [place] [address] Ammonia (02/14/2018 1:35 PM) Component Value Ref Range Ammonia 23 18 - 72 mol/L Specimen Performing Laboratory Blood [address] [address] Magnesium (02/13/2018 3:47 PM)Only the most recent of4 resultswithin the time period is included. Component Value Ref Range Magnesium 2.5Comment: Specimen slightly hemolyzed 1.6 - 2.6 mg/dL Specimen Performing Laboratory Blood [address] [address] Cytology (02/13/2018 9:46 AM) Component Value Ref Range Cytology See Separate Report Specimen Performing Laboratory Bronch Washing - Lung, Left Upper and [facility] [place] [address] [place] [address] Cytology (02/13/2018 9:46 AM) Component Value Ref Range Case Report Medical Cytology Report Case: [id number] Authorizing Provider:Socrates Alfonso MDCollected: 02/13/2018 0946 Ordering Location: [address] Received: 02/13/2018 1300 Service Pathologist: Audrey Orr Specimen:Lung, Left Upper and [place], Routine cyto DIAGNOSIS LEFT UPPER AND MIDDLE LOBES LUNG BRONCH WASHING (CYTOSPINS): - NEGATIVE FOR MALIGNANCY PREDOMINANTLY ACUTE INFLAMMATION Signing Pathologist Direct Phone Line: [phone] CPT Code(s) 83989 CLINICAL DATA Bronchiectasis without complication SPECIMEN SOURCE LEFT UPPER AND MIDDLE LOBES LUNG BRONCH WASHING GROSS DESCRIPTION 22 mls in cytorich red; 4 cytospins Collected: [id number] Received: [id number] STATEMENT OF ADEQUACY Satisfactory Technical component was performed at [facility], Department of Pathology, [address] [place] [id number], Professional component was performed [facility], at Department of Pathology, [address] [place] [address], Specimen Performing Laboratory Bronch Washing - Lung, Left Upper and [facility] [place] [address] [place], [place] [id number] ECG 12 lead (02/13/2018 9:44 AM) Specimen Performing Laboratory GE MUSE Narrative Ventricular Rate 110 BPM Atrial Rate 110 BPM P-R Interval 88 ms QRS Duration 84 ms Q-T Interval 308 ms QTC Calculation(Bazett) 416 ms R [place] -39 degrees T Cambridge -24 degrees Sinus tachycardia with short [place] Left axis deviation Nonspecific ST and T wave abnormality Could be WPW Confirmed by MD Ayon Roberto ([id number]) on 02/13/2018 1:22:33 PM Procedure Note Interface, External Ris In - 02/13/2018 1:22 PM CDT Ventricular Rate 110 BPM Atrial Rate 110 BPM P-R Interval 88 ms QRS Duration 84 ms Q-T Interval 308 ms QTC Calculation(Bazett) 416 ms R [place] -39 degrees T Cambridge -24 degrees Sinus tachycardia with short [place] Left axis deviation Nonspecific ST and T wave abnormality Could be WPW Confirmed by MD Ayon Roberto ([id number]) on 02/13/2018 1:22:33 PM Bronchial culture + gram stain (02/13/2018 9:44 AM) Component Value Ref Range Result 1+ Same organism has been isolated from cultures(s) of the same body site within 3 days. Repeat identification and susceptibility testing performed only after consultation with the clinical microbiology laboratory. (A) Comment: Refer to previous culture of Pseudomonas aeruginosa This is a corrected organism result. Previous result was Same organism has been isolated from culture(s) of the same body site within 3 days. Repeat identification performed only after consultation with the clinical microbiology laboratory. on 02/15/2018 at 1859 CDT Gram Stain Result 2+ WBCs Gram Stain Result No organisms seen Specimen Performing Laboratory Bronch Washing - Lung, Left Upper and [address] [address] Narrative <1+ Normal respiratory greyson present Fungus culture + smear (02/13/2018 9:44 AM) Component Value Ref Range Result <1+ Luisa albicans (A) Result 2 out of 3 media Fusarium species (A) Fungus Smear No fungi seen Specimen Performing Laboratory Bronch Washing - Lung, [facility] and [address] [address] SPIN/CONCENTRATION CHARGE (02/13/2018 9:44 AM) Component Value Ref Range Concentration charged Done Specimen Performing Laboratory Bronch Washing - Lung, [facility] and [facility] [address] 2D Echo W/Doppler(CW/PW/Color) (02/12/2018 3:00 PM) Component Value Ref Range Ejection Fraction Specimen Performing Laboratory [facility] CP[facility] Narrative Transthoracic Echocardiography Report (TTE) Demographics Patient Name JUANITO GONZALES Date of Study 02/12/2018 YAMILA [id number] Female Visit Number [id number] Room Number 2446 Number Date of Birth1935Referring Physician Naty Villeda Age82 year(s)Postal Superintendent Macario Maldonado AnalystIzolico Villeda CiolanInterpreting Physician LILI Bender Procedure Type of Study TTE procedure:2DECHO W DOPPLER(CW/PW/COLOR) (Routine) Indications:Shortness of breath. Clinical History HGB 11.1 HCT 36.8 % HTN, MRSA, PULMONARY MAC, THYROID DISEASE Height: 67 inches Weight: 62.6 kg (138 lbs) BSA: 1.73 m^2 BMI: 21.61 kg/m^2 HR: 104 bpm BP: 133/71 mmHg Summary Pt. unable to lay flat done in partial sitting position. Suboptimal apical window. The left ventricle is chamber size (by PSLAX dimension) is normal (female - LVIDd 3.8-5.2cm) . Borderline concentric LV hypertrophy. All of the LV segments contract normally . Global LV systolic function normal . Estimated LVEF by qualitative assessment is normal (>60%) . Normal (cardiac index 2-3 L/min/m2) cardiac output state at rest is noted. Grade 1 diastolic dysfunction (impaired relaxation and low-normal LA pressure). Estimated peak systolic PA pressure is 35-40 mmHg . Previous Study In comparison with the prior exam on 11-03-14 there are no significant changes. Signature Findings Rhythm/BPSinus tachycardia during the exam. Left Ventricle The left ventricle is chamber size (by PSLAX dimension) is normal (female - LVIDd 3.8-5.2cm) . Borderline concentric LV hypertrophy. All of the LV segments contract normally . Global LV systolic function normal . Estimated LVEF by qualitative assessment is normal (>60%) . Normal (cardiac index 2-3 L/min/m2) cardiac output state at rest is noted. Grade 1 diastolic dysfunction (impaired relaxation and low-normal LA pressure). Left AtriumLA size is normal (16-34 ml/m2) . Right VentricleThe right ventricular chamber size and systolic function are within normal limits. Right Atrium RA cavity size is normal . Aortic Valve AoV calcification primarily involves the non- coronary cusp(s). Mitral Valve Mild MV leaflet thickening. Mild mitral annular calcification. Tricuspid ValveMild tricuspid regurgitation. Estimated peak systolic PA pressure is 35-40 mmHg . Pulmonic Valve Normal PV structure and function. AortaAortic root size (SInus of Valsalva diameter) is normal . Proximal ascending aorta size is normal . PericardiumNo significant pericardial effusion is visualized. IVC/SVC/PA/PV/PleuralThe estimated RA pressure by IVC dynamics 5-10mmHg . Chambers/Structures Left Atrium LA Volume: 46.02 ml LA Area: 11.14 cm^ 2 LA Vol. Index: 27 ml/m^2 Left Ventricle LVIDd: 3.77 cm LV Septum Diastolic: 1.11 cm LV PW Diastolic: 1.11 cm LVOT Diameter: 1.86 cm Aorta Ao Root S of Hoa.: 2.95 cmAscending Aorta: 3.43 cm Doppler/Quantitative Measurements Mitral Valve MV Peak E-Wave: 0.51 m/sMV Peak A-Wave: 0.93 m/s E/ A Ratio: 0.55 Peak Gradient: 1.04 mmHg Deceleration Time: 266.8 msec MV Ariel. Peak: Tissue Doppler E' Lateral Velocity: 0.07 m/s E/E': 6.99 LVOT Peak Velocity: 0.99 m/s Peak Gradient: 3.93 mmHg Mean Velocity: 0.65 m/s Mean Gradient: 1.92 mmHg LVOT Diameter: 1.86 cmLVOT VTI: 15.6 cm LVOT Area: 2.72 cm^2LVOT SV:42.37 ml LVOT CO: 4.41 l/min LVOT CI: 2.55 l/min/m^2 Tricuspid Valve TR Velocity: 2.71 m/s TR Gradient: 29.29 mmHg Procedure Note Interface, External Ris In - 02/13/2018 10:18 AM CDT Transthoracic Echocardiography Report (TTE) Demographics Patient Name JUANITO GONZALES Date of Study 02/12/2018 YAMILA Gender Female Visit Number [id number] Race Unknown Room Number 2446 Number Date of 1935 Referring Physician Naty Villeda Age 82 year(s) Postal Superintendent Macario Maldonado Weights And Measures Inspector Karen Elizondo Interpreting Teddy Anthony Physician Procedure Type of Study TTE procedure:2DECHO W DOPPLER(CW/PW/COLOR) (Routine) Indications:Shortness of breath. Clinical History HGB 11.1 HCT 36.8 % HTN, MRSA, PULMONARY MAC, THYROID DISEASE Height: 67 inches Weight: 62.6 kg (138 lbs) BSA: 1.73 m^2 BMI: 21.61 kg/m^2 HR: 104 bpm BP: 133/71 mmHg Summary Pt. unable to lay flat done in partial sitting position. Suboptimal apical window. The left ventricle is chamber size (by PSLAX dimension) is normal (female - LVIDd 3.8-5.2cm) . Borderline concentric LV hypertrophy. All of the LV segments contract normally . Global LV systolic function normal . Estimated LVEF by qualitative assessment is normal (>60%) . Normal (cardiac index 2-3 L/min/m2) cardiac output state at rest is noted. Grade 1 diastolic dysfunction (impaired relaxation and low-normal LA pressure). Estimated peak systolic PA pressure is 35-40 mmHg . Previous Study In comparison with the prior exam on 11-03-14 there are no significant changes. Signature Findings Rhythm/BP Sinus tachycardia during the exam. Left Ventricle The left ventricle is chamber size (by PSLAX dimension) is normal (female - LVIDd 3.8-5.2cm) . Borderline concentric LV hypertrophy. All of the LV segments contract normally . Global LV systolic function normal . Estimated LVEF by qualitative assessment is normal (>60%) . Normal (cardiac index 2-3 L/min/m2) cardiac output state at rest is noted. Grade 1 diastolic dysfunction (impaired relaxation and low-normal LA pressure). Left Atrium LA size is normal (16-34 ml/m2) . Right Ventricle The right ventricular chamber size and systolic function are within normal limits. Right Atrium RA cavity size is normal . Aortic Valve AoV calcification primarily involves the non- coronary cusp(s). Mitral Valve Mild MV leaflet thickening. Mild mitral annular calcification. Tricuspid Valve Mild tricuspid regurgitation. Estimated peak systolic PA pressure is 35-40 mmHg . Pulmonic Valve Normal PV structure and function. Aorta Aortic root size (SInus of Valsalva diameter) is normal . Proximal ascending aorta size is normal . Pericardium No significant pericardial effusion is visualized. IVC/SVC/PA/PV/Pleural The estimated RA pressure by IVC dynamics 5-10mmHg . Chambers/Structures Left Atrium LA Volume: 46.02 ml LA Area: 11.14 cm^2 LA Vol. Index: 27 ml/m^2 Left Ventricle LVIDd: 3.77 cm LV Septum Diastolic: 1.11 cm LV PW Diastolic: 1.11 cm LVOT Diameter: 1.86 cm Aorta Ao Root S of Hoa.: 2.95 cm Ascending Aorta: 3.43 cm Doppler/Quantitative Measurements Mitral Valve MV Peak E-Wave: 0.51 m/s MV Peak A-Wave: 0.93 m/s E/A Ratio: 0.55 Peak Gradient: 1.04 mmHg Deceleration Time: 266.8 msec MV Ariel. Peak: Tissue Doppler E' Lateral Velocity: 0.07 m/s E/E': 6.99 LVOT Peak Velocity: 0.99 m/s Peak Gradient: 3.93 mmHg Mean Velocity: 0.65 m/s Mean Gradient: 1.92 mmHg LVOT Diameter: 1.86 cm LVOT VTI: 15.6 cm LVOT Area: 2.72 cm^2 LVOT SV:42.37 ml LVOT CO: 4.41 l/min LVOT CI: 2.55 l/min/m^2 Tricuspid Valve TR Velocity: 2.71 m/s TR Gradient: 29.29 mmHg Hepatic function panel (02/12/2018 4:52 AM)Only the most recent of4 resultswithin the time period is included. Component Value Ref Range Protein, Total 5.4 (L) 6.0 - 8.3 gm/dL Albumin 3.2 (L) 3.5 - 5.0 g/dL Total Bilirubin 0.4 0.2 - 1.2 mg/dL Bilirubin, Direct 0.2 0.1 - 0.5 mg/dL Alkaline Phosphatase 70 40 - 150 U/L AST 12 5 - 34 U/L ALT 13 6 - 55 U/L Specimen Performing Laboratory Blood - Arm, [address] [address] PT/aPTT (02/10/2018 10:01 PM) Component Value Ref Range Protime 13.4 11.7 - 14.7 seconds INR 1.0 <=5.9 PTT 29.2 22.5 - 36.0 seconds Specimen Performing Laboratory Blood - Arm, [address] [address] Narrative RECOMMENDED COUMADIN/WARFARIN INR THERAPY RANGES STANDARD DOSE: 2.0 - 3.0 Includes: PROPHYLAXIS for venous thrombosis, systemic embolization; TREATMENT for venous thrombosis and/or pulmonary embolus. HIGH RISK: Target INR is 2.5-3.5 for patients with mechanical heart valves. Blood culture #2 (02/10/2018 10:01 PM)Only the most recent of2 resultswithin the time period is included. Component Value Ref Range Result No growth in 5 days Specimen Performing Laboratory Blood - Arm, Left [facility] [address] [place] [id number] B-type Natriuretic Factor (BNP) (02/10/2018 10:01 PM) Component Value Ref Range BNP 125 (H) 0 - 100 pg/mL Specimen Performing Laboratory Blood - Arm, Left [address] [address] XR chest 2 views (02/10/2018 6:22 PM) Specimen Performing Laboratory GE RIS Narrative FINAL REPORT Examination: Two view Chest X-ray. CLINICAL HISTORY: Productive cough COMPARISON: 03/24/2017 The cardiomediastinal and hilar contours are unremarkable. The lungs are mildly hyperinflated. Subtle peripheral and basilar reticulonodular opacities are nonspecific; an infectious or inflammatory process is not excluded. Better characterization with CT chest can be considered. There is no focal consolidation, pleural effusion, pneumothorax or evidence of overt pulmonary edema. There is no pneumothorax, large pleural effusion or acute bony abnormality. Signed: Shun Lee MD Report Verified Date/Time:02/10/2018 20:38:56 Reading Location: [address] Reading Room Procedure Note Interface, External Ris In - 02/10/2018 8:41 PM CDT FINAL REPORT Examination: Two view Chest X-ray. CLINICAL HISTORY: Productive cough COMPARISON: 03/24/2017 The cardiomediastinal and hilar contours are unremarkable. The lungs are mildly hyperinflated. Subtle peripheral and basilar reticulonodular opacities are nonspecific; an infectious or inflammatory process is not excluded. Better characterization with CT chest can be considered. There is no focal consolidation, pleural effusion, pneumothorax or evidence of overt pulmonary edema. There is no pneumothorax, large pleural effusion or acute bony abnormality. Signed: Shun Lee MD Report Verified Date/Time: 02/10/2018 20:38:56 Reading Location: [address] Reading Room chest with high resolution/ild (03/26/2017 10:05 PM) [...] MD Report Verified Date/Time:03/27/2017 08:41:17 Reading Location: [facility] Diagnostic Imaging Reading Room - [place] [address] Procedure Note Interface, External Ris In - [...] Report Verified Date/Time: 03/27/2017 08:41:17 Reading Location: [facility] Diagnostic Imaging Reading Room - [place] [address] T4, free (03/25/2017 6:02 PM) Component Value Ref Range Free T4 1.28 0.70 - 1.48 ng/dL Specimen Performing Laboratory Blood - Arm, [place] [address] after 03/25/2017
--- OUTSIDE RECORDS SUMMARY | 2018-03-26 13:38 | XMS REPORT | Continuity of Care Document ---
:1935 Author Organization Interface Problems Problem Status Onset Classification Date Comments Source Date Reported M25.562 - Active [facility] PAIN IN LEFT 5 [facility] KNEE Medications Medication Details Route Status Patient Ordering Order Source Instructions Provider Date Allergies, Adverse Reactions, Alerts Substance Category Reaction Severity Reaction Status Date Comments Source type Reported Immunizations Immunization Date Given Site Status Last Updated Comments Source Results Order Results Value Reference Date Interpretation Comments Source Name Range Knee Knee LEFT KNEE 05/25 - [facility] series 3 series - [facility] views DX views DX (3 Views) Read by: Rene Srinivasan MD Dictated Date/time: 05/26/15 13:12 HISTORY: Left knee pain. Electronically Signed by: Rene Srinivasan MD 05/26/15 13:14 FINAL REPORT TECHNIQUE: Frontal, lateral, and oblique views of the left knee were obtained. FINDINGS: There is no evidence of effusion or other soft tissue abnormality. There mild degenerative changes involving the medial compartment with slight narrowing of the medial joint space and minimal spurring from the medial tibial spine and medial margin of the joint. The lat eral compartment is unremarkable. There are also mild degenerative changes involving the patellofemoral joint with slight narrowing of the joint space and minimal irregularity of the articular surface of the patella. There is no evidence of fracture, dislocation, or other acute osteoarticular abnormality. There are no destructive lesions. CONCLUSION: 1. 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 Coding: Knee 3 views SL: 16 Rene Srinivasan M.D. Vital Signs Vital Sign Value Date Comments Source Encounters Location Location Encounter Encounter Reason Attending ADM DC Status Source Details Type Number For Provider Date Date Visit [facility] Outpt Diag [id number] Syl 05/25 05/26 [facility] Procedures Procedure Code Date Perfomer Comments Source
--- OUTSIDE RECORDS SUMMARY | 2018-03-26 13:40 | XMS REPORT ---
:1935 [facility] Address [address] [place] [address] Care Team Providers Name Role Phone TERESA LOVE Unavailable Unavailable NAYELI ASHTON Unavailable Unavailable Problems This patient has no known problems. Allergies, Adverse Reactions, Alerts This patient has no known allergies or adverse reactions. Medications This patient has no known medications. Results Test Description Test Time Test Comments Text Results Atomic Results Result Comments FUNGUS CULTURE + SMEAR 2018-02-23 11:53:00 Test Item Value Reference Range Comments CULTURE (BEAKER) (test cgtt=4245) 2 out of 3 media Fusarium species FUNGUS SMEAR (BEAKER) (test No fungi seen zylu=1698) SPUTUM CULTURE + GRAM [id number] 10:14:00 Test Item Value Reference Range Comments CULTURE (BEAKER) (test PSEUDOMONAS 4+ Pseudomonas dxwk=0017) AERUGINOSA aeruginosa Amikacin (test code=1) Susceptible 0-16 , Resistant <0 or >16 Aztreonam (test Susceptible 0-8 , code=32) Resistant <0 or >8 Cefepime (test code=51) Susceptible 0-8 , Resistant <0 or >8 Ceftazidime (test Susceptible 0-8 , code=27) Resistant <0 or >8 Ciprofloxacin (test Susceptible 0-1 , code=7) Resistant <0 or >1 Gentamicin (test Susceptible 0-4 , code=18) Resistant <0 or >4 Levofloxacin (test Susceptible 0-2 , code=22) Resistant <0 or >2 Piperacillin (test Susceptible 0-16 , code=24) Resistant <0 or >16 Piperacillin + Susceptible 0-16 , Tazobactam (test Resistant <0 or >16 code=29) Tobramycin (test Susceptible 0-4 , code=25) Resistant <0 or >4 GRAM STAIN RESULT 4+ White blood cells (BEAKER) (test seen xkke=0989) GRAM STAIN RESULT 0-5 epithelial cells (BEAKER) (test vpjk=251578) GRAM STAIN RESULT 4+ gram variable rods (BEAKER) (test ijrx=437413) GRAM STAIN RESULT <1+ gram positive (BEAKER) (test cocci in pairs ompw=267704) 2+ Normal respiratory greyson presentRAD, CHEST, 1 VIEW, NON [id number] 12:37: 00Reason for exam:->post picc lineShould this be performed at the bedside?-& gt;YesFINAL REPORT Chest one view INDICATION: Post PICC line COMPARISON: 02/10/2018 IMPRESSION: A right PICC line extends to the right atrium. Advise retraction 3 cm. No pneumothorax is seen. Interstitial reticulation and bibasilar opacities are suspicious for pneumonitis. Aspiration cannot be excluded. No significant pleural effusion is seen. The cardiomediastinal contours are stable.The bones appear unchanged. Signed: Valeriy Pollack MDReport Verified Date/Time: 02/18/2018 12:37:39 Reading Location: [facility] Radiology Reading Room POCT-GLUCOSE [id number] 12: 10:00 Test Item Value Reference Range Comments POC-GLUCOSE METER (BEAKER) 114 mg/dL 70-110 TESTED AT [address] (test oaxr=0407) [facility] [address] POCT-GLUCOSE [id number] 07:55:00 Test Item Value Reference Range Comments POC-GLUCOSE METER (BEAKER) 125 mg/dL 70-110 TESTED AT [address] (test nrwo=1487) [facility] [address] BUN AND [id number] 05:28:00 Test Item Value Reference Range Comments BLOOD UREA NITROGEN 29 mg/dL 7-21 (BEAKER) (test vnoz=688) CREATININE (BEAKER) (test 0.91 mg/dL 0.57-1.25 cacc=328) EGFR (BEAKER) (test 59 mL/min/1.73 sq m ESTIMATED GFR IS NOT odln=0669) ACCURATE CREATININE CLEARANCE IN PREDICTING GLOMERULAR FILTRATION RATE. ESTIMATED GFR IS NOT APPLICABLE FOR DIALYSIS PATIENTS. CBC (HEMOGRAM ONLY)2018-02-18 05:03:00 Test Item Value Reference Range Comments WHITE BLOOD CELL COUNT (BEAKER) (test pzkr=449) 20.4 K/ L 3.5-10.5 RED BLOOD CELL COUNT (BEAKER) (test ebul=733) 4.12 M/ L 3.93-5.22 HEMOGLOBIN (BEAKER) (test ipna=597) 11.8 GM/DL 11.2-15.7 HEMATOCRIT (BEAKER) (test ylhj=425) 39.1 % 34.1-44.9 MEAN CORPUSCULAR VOLUME (BEAKER) (test gtml=072) 94.9 fL 79.4-94.8 MEAN CORPUSCULAR HEMOGLOBIN (BEAKER) (test 28.6 pg 25.6-32.2 orzm=710) MEAN CORPUSCULAR HEMOGLOBIN CONC (BEAKER) (test 30.2 GM/DL 32.2-35.5 lecb=436) RED CELL DISTRIBUTION WIDTH (BEAKER) (test 15.4 % 11.7-14.4 typu=074) PLATELET COUNT (BEAKER) (test xmxq=901) 236 K/CU MM 150-450 MEAN PLATELET VOLUME (BEAKER) (test cahu=938) 9.7 fL 9.4-12.3 NUCLEATED RED BLOOD CELLS (BEAKER) (test 0 /100 WBC 0-0 ldnh=336) POCT-GLUCOSE [id number] 21:44:00 Test Item Value Reference Range Comments POC-GLUCOSE METER (BEAKER) 299 mg/dL 70-110 TESTED AT [address] (test aioq=1885) [facility] [address] POCT-GLUCOSE [id number] 17:21:00 Test Item Value Reference Range Comments POC-GLUCOSE METER (BEAKER) 164 mg/dL 70-110 TESTED AT [address] (test rdeg=7803) [facility] [address] POCT-GLUCOSE [id number] 12:21:00 Test Item Value Reference Range Comments POC-GLUCOSE METER (BEAKER) 142 mg/dL 70-110 TESTED AT [address] (test rgmu=8988) [facility] [address] POCT-GLUCOSE [id number] 10:24:00 Test Item Value Reference Range Comments POC-GLUCOSE METER (BEAKER) 91 mg/dL 70-110 TESTED AT [facility] [address] (test wujg=7905) [facility] [address] POCT-GLUCOSE [id number] 08:12:00 Test Item Value Reference Range Comments POC-GLUCOSE METER (BEAKER) 68 mg/dL 70-110 Will Repeat Test/TESTED AT (test iwvm=3482) [place] [id number] [facility] [address] BUN AND [id number] 05:44:00 Test Item Value Reference Range Comments BLOOD UREA NITROGEN 30 mg/dL 7-21 (BEAKER) (test elqx=168) CREATININE (BEAKER) (test 0.79 mg/dL 0.57-1.25 Specimen slightly cgwc=496) hemolyzed EGFR (BEAKER) (test 70 mL/min/1.73 sq m ESTIMATED GFR IS NOT fndl=4487) ACCURATE CREATININE CLEARANCE IN PREDICTING GLOMERULAR FILTRATION RATE. ESTIMATED GFR IS NOT APPLICABLE FOR DIALYSIS PATIENTS. BRONCHIAL CULTURE + GRAM [id number] 16:31:00 Test Item Value Reference Range Comments CULTURE (BEAKER) (test 1+ Same organism has been ppej=7777) isolated from cultures(s) of the same body site within 3 days. Repeat identification and susceptibility testing performed only after consultation with the clinical microbiology laboratory.Refer to previous culture ofPseudomonas aeruginosaThis is a corrected organism result. Previous result was Same organism has been isolated from culture(s) of the same body site within 3 days. Repeat identification performed only after consultation with the clinical microbiology laboratory. on 02/15/2018 at 1859 CDT GRAM STAIN RESULT 2+ WBCs (BEAKER) (test fqvg=6114) GRAM STAIN RESULT No organisms seen (BEAKER) (test ezez=783555) GRAM STAIN RESULT No organisms seen (BEAKER) (test kegc=356467) <1+ Normal respiratory greyson presentPOCT-GLUCOSE [id number] 12:42:00 Test Item Value Reference Range Comments POC-GLUCOSE METER (BEAKER) 108 mg/dL 70-110 TESTED AT [facility] [address] (test kfxb=6257) [facility] [address] [id number] 11:38:00Medical Cytology Report Case: [id number] Authorizing Provider: Socrates Alfonso MD Collected: 02/13/2018 0946 Ordering Location: [address] Received: 02/13/2018 1300 Service Pathologist: Audrey Orr Specimen: Lung, Left Upper and Middle Lobes, Routine cyto LEFT UPPER AND MIDDLE LOBES LUNG BRONCH WASHING (CYTOSPINS): - NEGATIVE FOR MALIGNANCY PREDOMINANTLY ACUTE INFLAMMATION Signing Pathologist Direct Phone Line: [phone] signed by Audrey Orr on 02/16/2018 at 11:38 [id number] without complicationLEFT UPPER AND MIDDLE LOBES LUNG BRONCH WASHING 22 mls in cytorich red; 4 cytospinsCollected: [id number]: [id number] [facility], Department of Pathology, [address] [place] [address], [id number], [facility] of Pathology, [address] [place] [address], [facility] AND [id number] 07:21:00 Test Item Value Reference Range Comments BLOOD UREA NITROGEN 32 mg/dL 7-21 (BEAKER) (test kefb=132) CREATININE (BEAKER) (test 0.87 mg/dL 0.57-1.25 kwug=763) EGFR (BEAKER) (test 63 mL/min/1.73 sq m ESTIMATED GFR IS NOT jddu=1133) ACCURATE CREATININE CLEARANCE IN PREDICTING GLOMERULAR FILTRATION RATE. ESTIMATED GFR IS NOT APPLICABLE FOR DIALYSIS PATIENTS. BASIC METABOLIC [id number] 07:21:00 Test Item Value Reference Range Comments SODIUM (BEAKER) (test 141 meq/L 136-145 ibng=040) POTASSIUM (BEAKER) (test 3.9 meq/L 3.5-5.1 tpum=766) CHLORIDE (BEAKER) (test 103 meq/L 98-107 dsig=517) CO2 (BEAKER) (test 32 meq/L 22-29 owlj=770) BLOOD UREA NITROGEN 32 mg/dL 7-21 (BEAKER) (test biuj=103) CREATININE (BEAKER) (test 0.87 mg/dL 0.57-1.25 gkni=052) GLUCOSE RANDOM (BEAKER) 70 mg/dL 70-105 (test arss=334) CALCIUM (BEAKER) (test 9.1 mg/dL 8.4-10.2 afbz=569) EGFR (BEAKER) (test 63 mL/min/1.73 sq m ESTIMATED GFR IS NOT gqak=8043) ACCURATE CREATININE CLEARANCE IN PREDICTING GLOMERULAR FILTRATION RATE. ESTIMATED GFR IS NOT APPLICABLE FOR DIALYSIS PATIENTS. CBC W/PLT COUNT & AUTO [id number] 05:46:00 Test Item Value Reference Range Comments WHITE BLOOD CELL COUNT (BEAKER) (test vijn=194) 17.4 K/ L 3.5-10.5 RED BLOOD CELL COUNT (BEAKER) (test gsbn=292) 4.38 M/ L 3.93-5.22 HEMOGLOBIN (BEAKER) (test rsyw=942) 12.7 GM/DL 11.2-15.7 HEMATOCRIT (BEAKER) (test vure=551) 43.0 % 34.1-44.9 MEAN CORPUSCULAR VOLUME (BEAKER) (test hect=893) 98.2 fL 79.4-94.8 MEAN CORPUSCULAR HEMOGLOBIN (BEAKER) (test 29.0 pg 25.6-32.2 ypog=185) MEAN CORPUSCULAR HEMOGLOBIN CONC (BEAKER) (test 29.5 GM/DL 32.2-35.5 nwqp=804) RED CELL DISTRIBUTION WIDTH (BEAKER) (test 15.9 % 11.7-14.4 xswv=946) PLATELET COUNT (BEAKER) (test zdgc=242) 175 K/CU MM 150-450 MEAN PLATELET VOLUME (BEAKER) (test hakt=445) 11.0 fL 9.4-12.3 NUCLEATED RED BLOOD CELLS (BEAKER) (test 0 /100 WBC 0-0 rgeh=059) NEUTROPHILS RELATIVE PERCENT (BEAKER) (test 70 % dhxw=857) LYMPHOCYTES RELATIVE PERCENT (BEAKER) (test 20 % cses=188) MONOCYTES RELATIVE PERCENT (BEAKER) (test 7 % pddq=168) EOSINOPHILS RELATIVE PERCENT (BEAKER) (test 0 % ogoq=533) BASOPHILS RELATIVE PERCENT (BEAKER) (test 0 % nkya=318) NEUTROPHILS ABSOLUTE COUNT (BEAKER) (test 12.08 K/ L 1.56-6.13 kuaq=347) LYMPHOCYTES ABSOLUTE COUNT (BEAKER) (test 3.43 K/ L 1.18-3.74 riiy=739) MONOCYTES ABSOLUTE COUNT (BEAKER) (test 1.25 K/ L 0.24-0.36 eayq=649) EOSINOPHILS ABSOLUTE COUNT (BEAKER) (test 0.02 K/ L 0.04-0.36 zomv=025) BASOPHILS ABSOLUTE COUNT (BEAKER) (test 0.01 K/ L 0.01-0.08 cooq=602) IMMATURE GRANULOCYTES-RELATIVE PERCENT (BEAKER) 3 % 0-1 (test pqxm=6073) BLOOD [id number] 04:41:00 Test Item Value Reference Range Comments CULTURE (BEAKER) (test iggt=7692) No growth in 5 days BLOOD [id number] 04:41:00 Test Item Value Reference Range Comments CULTURE (BEAKER) (test lylz=8648) No growth in 5 days POCT-GLUCOSE [id number] 00:13:00 Test Item Value Reference Range Comments POC-GLUCOSE METER (BEAKER) 132 mg/dL 70-110 TESTED AT [address] (test amdn=0670) [place] [address] POCT-GLUCOSE [id number] 17:35:00 Test Item Value Reference Range Comments POC-GLUCOSE METER (BEAKER) 157 mg/dL 70-110 TESTED AT [address] (test xfun=0435) [place] [address] SPUTUM CULTURE + GRAM [id number] 13:58:00 Test Item Value Reference Range Comments CULTURE (BEAKER) (test See comment 2+ Pseudomonas auqq=7690) aeruginosa CULTURE (BEAKER) (test PSEUDOMONAS <1+ Streptococcus rvtr=1704) AERUGINOSA group F Amikacin (test code=1) Susceptible 0-16 , Resistant <0 or >16 Aztreonam (test Susceptible 0-8 , code=32) Resistant <0 or >8 Cefepime (test code=51) Susceptible 0-8 , Resistant <0 or >8 Ceftazidime (test Susceptible 0-8 , code=27) Resistant <0 or >8 Ciprofloxacin (test Susceptible 0-1 , code=7) Resistant <0 or >1 Gentamicin (test Susceptible 0-4 , code=18) Resistant <0 or >4 Imipenem (test code=19) Susceptible 0-2 , Resistant <0 or >2 Levofloxacin (test Susceptible 0-2 , code=22) Resistant <0 or >2 Piperacillin (test Susceptible 0-16 , code=24) Resistant <0 or >16 Piperacillin + Susceptible 0-16 , Tazobactam (test Resistant <0 or >16 code=29) Tobramycin (test Susceptible 0-4 , code=25) Resistant <0 or >4 GRAM STAIN RESULT 3+ WBCs (BEAKER) (test aubq=7581) GRAM STAIN RESULT 0-5 epithelial cells (BEAKER) (test fdcc=356417) GRAM STAIN RESULT 1+ gram positive (BEAKER) (test cocci in pairs and uuts=614314) clusters 3+ Normal respiratory greyson presentPOCT-GLUCOSE [id number] 11:35:00 Test Item Value Reference Range Comments POC-GLUCOSE METER (BEAKER) 98 mg/dL 70-110 TESTED AT [facility] [address] (test erto=6045) [facility] [address] TSH/FREE T4 IF [id number] 03:37:00 Test Item Value Reference Range Comments THYROID STIMULATING HORMONE (BEAKER) (test 1.16 uIU/mL 0.35-4.94 htxa=053) CBC W/PLT COUNT & AUTO [id number] 03:28:00 Test Item Value Reference Range Comments WHITE BLOOD CELL COUNT (BEAKER) (test sgcx=342) 19.0 K/ L 3.5-10.5 RED BLOOD CELL COUNT (BEAKER) (test cqqg=964) 4.13 M/ L 3.93-5.22 HEMOGLOBIN (BEAKER) (test bhwi=077) 11.8 GM/DL 11.2-15.7 HEMATOCRIT (BEAKER) (test qcyd=250) 39.3 % 34.1-44.9 MEAN CORPUSCULAR VOLUME (BEAKER) (test wpux=743) 95.2 fL 79.4-94.8 MEAN CORPUSCULAR HEMOGLOBIN (BEAKER) (test 28.6 pg 25.6-32.2 zngs=155) MEAN CORPUSCULAR HEMOGLOBIN CONC (BEAKER) (test 30.0 GM/DL 32.2-35.5 wvva=248) RED CELL DISTRIBUTION WIDTH (BEAKER) (test 15.1 % 11.7-14.4 xxoz=811) PLATELET COUNT (BEAKER) (test hmnh=225) 246 K/CU MM 150-450 MEAN PLATELET VOLUME (BEAKER) (test bbhv=804) 9.4 fL 9.4-12.3 NUCLEATED RED BLOOD CELLS (BEAKER) (test 0 /100 WBC 0-0 qnbe=234) (CELLAVISION MANUAL DIFF)2018-02-15 03:28:00 Test Item Value Reference Range Comments NEUTROPHILS - REL (CELLAVISION)(BEAKER) (test 75 % emxy=5124) LYMPHOCYTES - REL (CELLAVISION)(BEAKER) (test 16 % yndn=8770) MONOCYTES - REL (CELLAVISION)(BEAKER) (test 8 % khhz=5951) ATYPICAL LYMPHOCYTES - REL (CELLAVISION)(BEAKER) 1 % 0-0 (test iaeh=8343) NEUTROPHILS - ABS (CELLAVISION)(BEAKER) (test 14.25 K/ul 1.56-6.13 ttqw=7117) LYMPHOCYTES - ABS (CELLAVISION)(BEAKER) (test 3.04 K/ul 1.18-3.74 oazf=7863) MONOCYTES - ABS (CELLAVISION)(BEAKER) (test 1.52 K/uL 0.24-0.36 tkdn=1661) ATYPICAL LYMPHOCYTES - ABS (CELLAVISION)(BEAKER) 0.19 K/uL 0.00-0.00 (test iggs=9168) TOTAL COUNTED (BEAKER) (test owqp=9537) 100 MANUAL NRBC PER 100 CELLS (BEAKER) (test 1 /100 WBC 0-0 vbif=7339) PLT MORPHOLOGY (BEAKER) (test jpua=967) Normal SMUDGE CELLS (BEAKER) (test eenz=4857) Present ANISOCYTOSIS (BEAKER) (test wrxv=394) 2+ moderate MICROCYTES (BEAKER) (test zsye=347) 2+ moderate ELLIPTOCYTES (BEAKER) (test unvm=345) 1+ few TEAR DROP CELLS (BEAKER) (test ljah=735) 1+ few PLATELET CONCENTRATION (CELLAVISION)(BEAKER) Adequate (test evkd=8859) Received comment: User comments: Slide comments:VANCOMYCIN LEVEL, [id number] 03:16:00 Test Item Value Reference Range Comments VANCOMYCIN TROUGH (BEAKER) (test nnmg=812) 16.1 ug/mL 10.0-20.0 BUN AND [id number] 03:16:00 Test Item Value Reference Range Comments BLOOD UREA NITROGEN 41 mg/dL 7-21 (BEAKER) (test izrk=673) CREATININE (BEAKER) (test 0.97 mg/dL 0.57-1.25 gwvd=662) EGFR (BEAKER) (test 55 mL/min/1.73 sq m ESTIMATED GFR IS NOT isen=3291) ACCURATE CREATININE CLEARANCE IN PREDICTING GLOMERULAR FILTRATION RATE. ESTIMATED GFR IS NOT APPLICABLE FOR DIALYSIS PATIENTS. BASIC METABOLIC [id number] 03:16:00 Test Item Value Reference Range Comments SODIUM (BEAKER) (test 144 meq/L 136-145 actr=260) POTASSIUM (BEAKER) (test 3.8 meq/L 3.5-5.1 avxl=986) CHLORIDE (BEAKER) (test 105 meq/L 98-107 wvva=781) CO2 (BEAKER) (test 30 meq/L 22-29 lhbo=763) BLOOD UREA NITROGEN 41 mg/dL 7-21 (BEAKER) (test qrjc=456) CREATININE (BEAKER) (test 0.97 mg/dL 0.57-1.25 bsop=567) GLUCOSE RANDOM (BEAKER) 87 mg/dL 70-105 (test vrqq=196) CALCIUM (BEAKER) (test 9.3 mg/dL 8.4-10.2 flue=280) EGFR (BEAKER) (test 55 mL/min/1.73 sq m ESTIMATED GFR IS NOT nyev=4895) ACCURATE CREATININE CLEARANCE IN PREDICTING GLOMERULAR FILTRATION RATE. ESTIMATED GFR IS NOT APPLICABLE FOR DIALYSIS PATIENTS. POCT-GLUCOSE [id number] 21:24:00 Test Item Value Reference Range Comments POC-GLUCOSE METER (BEAKER) 286 mg/dL 70-110 TESTED AT [facility] [address] (test zrhn=7971) [facility] [address] SPIN/CONCENTRATION [id number] 19:00:00 Test Item Value Reference Range Comments CONCENTRATION CHARGED (BEAKER) (test wddg=4587) Done POCT-GLUCOSE [id number] 17:16:00 Test Item Value Reference Range Comments POC-GLUCOSE METER (BEAKER) 144 mg/dL 70-110 TESTED AT [place] [address] [address] (test gaek=7923) [place] [address] CBC W/PLT COUNT & AUTO [id number] 15:16:00 Test Item Value Reference Range Comments WHITE BLOOD CELL COUNT (BEAKER) (test pyam=646) 23.1 K/ L 3.5-10.5 RED BLOOD CELL COUNT (BEAKER) (test qjpi=648) 4.43 M/ L 3.93-5.22 HEMOGLOBIN (BEAKER) (test dbjy=555) 12.7 GM/DL 11.2-15.7 HEMATOCRIT (BEAKER) (test raba=347) 41.8 % 34.1-44.9 MEAN CORPUSCULAR VOLUME (BEAKER) (test nbyh=139) 94.4 fL 79.4-94.8 MEAN CORPUSCULAR HEMOGLOBIN (BEAKER) (test 28.7 pg 25.6-32.2 dqrx=505) MEAN CORPUSCULAR HEMOGLOBIN CONC (BEAKER) (test 30.4 GM/DL 32.2-35.5 jwst=530) RED CELL DISTRIBUTION WIDTH (BEAKER) (test 15.1 % 11.7-14.4 yvhf=401) PLATELET COUNT (BEAKER) (test dlnx=356) 333 K/CU MM 150-450 MEAN PLATELET VOLUME (BEAKER) (test lqzi=668) 9.5 fL 9.4-12.3 NUCLEATED RED BLOOD CELLS (BEAKER) (test 0 /100 WBC 0-0 sffz=958) (CELLAVISION MANUAL DIFF)2018-02-14 15:16:00 Test Item Value Reference Range Comments NEUTROPHILS - REL (CELLAVISION)(BEAKER) (test 91 % ffta=0227) LYMPHOCYTES - REL (CELLAVISION)(BEAKER) (test 6 % khrh=6043) MONOCYTES - REL (CELLAVISION)(BEAKER) (test 1 % skdn=9280) ATYPICAL LYMPHOCYTES - REL (CELLAVISION)(BEAKER) 2 % 0-0 (test kkat=1111) NEUTROPHILS - ABS (CELLAVISION)(BEAKER) (test 21.02 K/ul 1.56-6.13 njxo=4488) LYMPHOCYTES - ABS (CELLAVISION)(BEAKER) (test 1.39 K/ul 1.18-3.74 lzko=9537) MONOCYTES - ABS (CELLAVISION)(BEAKER) (test 0.23 K/uL 0.24-0.36 bsxr=0799) ATYPICAL LYMPHOCYTES - ABS (CELLAVISION)(BEAKER) 0.46 K/uL 0.00-0.00 (test crlb=2168) TOTAL COUNTED (BEAKER) (test onol=7775) 100 RBC MORPHOLOGY (BEAKER) (test qnpn=220) Normal WBC MORPHOLOGY (BEAKER) (test ugeh=307) Normal PLT MORPHOLOGY (BEAKER) (test qnkx=509) Normal PLATELET CONCENTRATION (CELLAVISION)(BEAKER) Adequate (test pxgg=0262) Received comment: User comments: Slide comments:BASIC METABOLIC [id number] 14:20:00 Test Item Value Reference Range Comments SODIUM (BEAKER) (test 138 meq/L 136-145 yjlk=978) POTASSIUM (BEAKER) (test 3.3 meq/L 3.5-5.1 wazs=884) CHLORIDE (BEAKER) (test 100 meq/L 98-107 wahk=515) CO2 (BEAKER) (test 26 meq/L 22-29 ckgq=649) BLOOD UREA NITROGEN 39 mg/dL 7-21 (BEAKER) (test cipg=817) CREATININE (BEAKER) (test 1.16 mg/dL 0.57-1.25 kzrv=534) GLUCOSE RANDOM (BEAKER) 237 mg/dL 70-105 (test yrwp=986) CALCIUM (BEAKER) (test 9.2 mg/dL 8.4-10.2 pnlf=118) EGFR (BEAKER) (test 45 mL/min/1.73 sq m ESTIMATED GFR IS NOT uvlv=0253) ACCURATE CREATININE CLEARANCE IN PREDICTING GLOMERULAR FILTRATION RATE. ESTIMATED GFR IS NOT APPLICABLE FOR DIALYSIS PATIENTS. [id number] 14:13:00 Test Item Value Reference Range Comments AMMONIA (BEAKER) (test ufiz=644) 23 mol/L 18-72 BLOOD GAS, [id number] 14:02:00 Test Item Value Reference Range Comments PH VENOUS (BEAKER) (test yhzf=803) 7.37 7.32-7.42 PCO2 VENOUS (BEAKER) (test tmmw=161) 57 mmHg 41-51 PO2 VENOUS (BEAKER) (test sxix=690) 77 mmHg 25-40 O2 SATURATION VENOUS (BEAKER) (test clcx=367) 94.6 % 40.0-70.0 HCO3 VENOUS (BEAKER) (test raid=826) 32 mmol/L 21-29 BASE EXCESS VENOUS (BEAKER) (test xpox=210) 5.2 mmol/L -2.0-3.0 PATIENT TEMPERATURE (BEAKER) (test ljfc=1186) 37.0 C FIO2 (BEAKER) (test ryau=0846) 21.0 % POCT-GLUCOSE [id number] 13:23:00 Test Item Value Reference Range Comments POC-GLUCOSE METER (BEAKER) 218 mg/dL 70-110 TESTED AT [address] (test ioqn=2315) [facility] [address] POCT-GLUCOSE [id number] 08:45:00 Test Item Value Reference Range Comments POC-GLUCOSE METER (BEAKER) 135 mg/dL 70-110 TESTED AT [address] (test mryo=7905) [facility] [address] POCT-GLUCOSE [id number] 21:02:00 Test Item Value Reference Range Comments POC-GLUCOSE METER (BEAKER) 275 mg/dL 70-110 TESTED AT [address] (test hevi=6728) [place] [id number] POCT-GLUCOSE [id number] 17:11:00 Test Item Value Reference Range Comments POC-GLUCOSE METER (BEAKER) 212 mg/dL 70-110 TESTED AT [address] (test jfut=1806) [facility] [address] [id number] 16:29:00 Test Item Value Reference Range Comments MAGNESIUM (BEAKER) (test 2.5 mg/dL 1.6-2.6 Specimen slightly hemolyzed letz=819) BASIC METABOLIC [id number] 16:29:00 Test Item Value Reference Range Comments SODIUM (BEAKER) (test 137 meq/L 136-145 tadz=123) POTASSIUM (BEAKER) (test 3.4 meq/L 3.5-5.1 Specimen slightly reaf=031) hemolyzed CHLORIDE (BEAKER) (test 104 meq/L 98-107 qjto=007) CO2 (BEAKER) (test 25 meq/L 22-29 bckn=569) BLOOD UREA NITROGEN 33 mg/dL 7-21 (BEAKER) (test iprk=707) CREATININE (BEAKER) (test 0.99 mg/dL 0.57-1.25 Specimen slightly xhky=279) hemolyzed GLUCOSE RANDOM (BEAKER) 175 mg/dL 70-105 (test rovx=632) CALCIUM (BEAKER) (test 8.9 mg/dL 8.4-10.2 dptg=607) EGFR (BEAKER) (test 54 mL/min/1.73 sq m ESTIMATED GFR IS NOT zzqi=7524) ACCURATE CREATININE CLEARANCE IN PREDICTING GLOMERULAR FILTRATION RATE. ESTIMATED GFR IS NOT APPLICABLE FOR DIALYSIS PATIENTS. CYTOLOGY [id number] 15:00:00 Test Item Value Reference Range Comments CYTOLOGY RESULT POINTER (BEAKER) (test See Separate Report slgk=7575) POCT-GLUCOSE [id number] 13:23:00 Test Item Value Reference Range Comments POC-GLUCOSE METER (BEAKER) 92 mg/dL 70-110 TESTED AT [address] (test vdwy=0592) [place] [id number] POCT-GLUCOSE [id number] 22:17:00 Test Item Value Reference Range Comments POC-GLUCOSE METER (BEAKER) 303 mg/dL 70-110 Will Repeat Test/TESTED AT (test vkjt=1136) [place] [address] VANCOMYCIN LEVEL, [id number] 21:43:00 Test Item Value Reference Range Comments VANCOMYCIN TROUGH (BEAKER) (test yhhw=884) 7.7 ug/mL 10.0-20.0 POCT-GLUCOSE [id number] 18:32:00 Test Item Value Reference Range Comments POC-GLUCOSE METER (BEAKER) 149 mg/dL 70-110 TESTED AT [address] (test iavy=2691) [facility] [address] POCT-GLUCOSE [id number] 12:18:00 Test Item Value Reference Range Comments POC-GLUCOSE METER (BEAKER) 159 mg/dL 70-110 TESTED AT [address] (test qvjs=5533) [facility] [address] POCT-GLUCOSE [id number] 07:45:00 Test Item Value Reference Range Comments POC-GLUCOSE METER (BEAKER) 144 mg/dL 70-110 TESTED AT [address] (test gkpv=3622) [place] [id number] 06:38:00 Test Item Value Reference Range Comments MAGNESIUM (BEAKER) (test khik=156) 2.3 mg/dL 1.6-2.6 BASIC METABOLIC [id number] 06:38:00 Test Item Value Reference Range Comments SODIUM (BEAKER) (test 140 meq/L 136-145 gskc=610) POTASSIUM (BEAKER) (test 3.5 meq/L 3.5-5.1 kayi=155) CHLORIDE (BEAKER) (test 105 meq/L 98-107 ubcv=095) CO2 (BEAKER) (test 27 meq/L 22-29 qwql=123) BLOOD UREA NITROGEN 29 mg/dL 7-21 (BEAKER) (test iwbq=633) CREATININE (BEAKER) (test 0.95 mg/dL 0.57-1.25 jhsl=329) GLUCOSE RANDOM (BEAKER) 147 mg/dL 70-105 (test jwam=431) CALCIUM (BEAKER) (test 8.8 mg/dL 8.4-10.2 tioe=587) EGFR (BEAKER) (test 57 mL/min/1.73 sq m ESTIMATED GFR IS NOT xrow=4705) ACCURATE CREATININE CLEARANCE IN PREDICTING GLOMERULAR FILTRATION RATE. ESTIMATED GFR IS NOT APPLICABLE FOR DIALYSIS PATIENTS. HEPATIC FUNCTION [id number] 06:38:00 Test Item Value Reference Range Comments TOTAL PROTEIN (BEAKER) (test kzbk=429) 5.4 gm/dL 6.0-8.3 ALBUMIN (BEAKER) (test mgup=7631) 3.2 g/dL 3.5-5.0 BILIRUBIN TOTAL (BEAKER) (test kzda=051) 0.4 mg/dL 0.2-1.2 BILIRUBIN DIRECT (BEAKER) (test gtkm=107) 0.2 mg/dL 0.1-0.5 ALKALINE PHOSPHATASE (BEAKER) (test zpqn=072) 70 U/L 40-150 AST (SGOT) (BEAKER) (test nthg=586) 12 U/L 5-34 ALT (SGPT) (BEAKER) (test extb=605) 13 U/L 6-55 CBC W/PLT COUNT & AUTO [id number] 05:53:00 Test Item Value Reference Range Comments WHITE BLOOD CELL COUNT (BEAKER) (test vpgp=652) 15.2 K/ L 3.5-10.5 RED BLOOD CELL COUNT (BEAKER) (test wxwo=817) 4.08 M/ L 3.93-5.22 HEMOGLOBIN (BEAKER) (test onyf=246) 11.8 GM/DL 11.2-15.7 HEMATOCRIT (BEAKER) (test ntkd=315) 38.7 % 34.1-44.9 MEAN CORPUSCULAR VOLUME (BEAKER) (test zbck=682) 94.9 fL 79.4-94.8 MEAN CORPUSCULAR HEMOGLOBIN (BEAKER) (test 28.9 pg 25.6-32.2 wvcx=651) MEAN CORPUSCULAR HEMOGLOBIN CONC (BEAKER) (test 30.5 GM/DL 32.2-35.5 gari=539) RED CELL DISTRIBUTION WIDTH (BEAKER) (test 15.0 % 11.7-14.4 iphr=398) PLATELET COUNT (BEAKER) (test vwaf=416) 246 K/CU MM 150-450 MEAN PLATELET VOLUME (BEAKER) (test ppnj=116) 9.6 fL 9.4-12.3 NUCLEATED RED BLOOD CELLS (BEAKER) (test 0 /100 WBC 0-0 vnkc=186) NEUTROPHILS RELATIVE PERCENT (BEAKER) (test 84 % itks=429) LYMPHOCYTES RELATIVE PERCENT (BEAKER) (test 11 % pfip=132) MONOCYTES RELATIVE PERCENT (BEAKER) (test 3 % pxzt=824) EOSINOPHILS RELATIVE PERCENT (BEAKER) (test 0 % kbfi=558) BASOPHILS RELATIVE PERCENT (BEAKER) (test 0 % kwcs=796) NEUTROPHILS ABSOLUTE COUNT (BEAKER) (test 12.80 K/ L 1.56-6.13 yrgw=737) LYMPHOCYTES ABSOLUTE COUNT (BEAKER) (test 1.71 K/ L 1.18-3.74 yfwm=369) MONOCYTES ABSOLUTE COUNT (BEAKER) (test 0.38 K/ L 0.24-0.36 qkpj=012) EOSINOPHILS ABSOLUTE COUNT (BEAKER) (test 0.00 K/ L 0.04-0.36 yuts=565) BASOPHILS ABSOLUTE COUNT (BEAKER) (test 0.04 K/ L 0.01-0.08 ynqe=738) IMMATURE GRANULOCYTES-RELATIVE PERCENT (BEAKER) 2 % 0-1 (test fmii=3319) POCT-GLUCOSE [id number] 21:04:00 Test Item Value Reference Range Comments POC-GLUCOSE METER (BEAKER) 140 mg/dL 70-110 TESTED AT [address] (test nyim=5948) [facility] [address] POCT-GLUCOSE [id number] 17:25:00 Test Item Value Reference Range Comments POC-GLUCOSE METER (BEAKER) 219 mg/dL 70-110 TESTED AT [address] (test rlzb=9589) [facility] [address] POCT-GLUCOSE [id number] 12:17:00 Test Item Value Reference Range Comments POC-GLUCOSE METER (BEAKER) 147 mg/dL 70-110 TESTED AT [address] (test fwaj=3140) [facility] [address] POCT-GLUCOSE [id number] 07:51:00 Test Item Value Reference Range Comments POC-GLUCOSE METER (BEAKER) 126 mg/dL 70-110 TESTED AT [address] (test beap=7729) [place] [id number] 06:30:00 Test Item Value Reference Range Comments MAGNESIUM (BEAKER) (test mthf=634) 2.3 mg/dL 1.6-2.6 BASIC METABOLIC [id number] 06:30:00 Test Item Value Reference Range Comments SODIUM (BEAKER) (test 140 meq/L 136-145 ubbe=249) POTASSIUM (BEAKER) (test 4.0 meq/L 3.5-5.1 dytk=911) CHLORIDE (BEAKER) (test 107 meq/L 98-107 fcry=067) CO2 (BEAKER) (test 27 meq/L 22-29 kxxd=379) BLOOD UREA NITROGEN 26 mg/dL 7-21 (BEAKER) (test fjnb=806) CREATININE (BEAKER) (test 0.90 mg/dL 0.57-1.25 adhe=718) GLUCOSE RANDOM (BEAKER) 122 mg/dL 70-105 (test nbxr=757) CALCIUM (BEAKER) (test 8.6 mg/dL 8.4-10.2 uent=747) EGFR (BEAKER) (test 60 mL/min/1.73 sq m ESTIMATED GFR IS NOT htii=8050) ACCURATE CREATININE CLEARANCE IN PREDICTING GLOMERULAR FILTRATION RATE. ESTIMATED GFR IS NOT APPLICABLE FOR DIALYSIS PATIENTS. HEPATIC FUNCTION [id number] 06:30:00 Test Item Value Reference Range Comments TOTAL PROTEIN (BEAKER) (test nigf=391) 5.4 gm/dL 6.0-8.3 ALBUMIN (BEAKER) (test ldaj=9326) 3.2 g/dL 3.5-5.0 BILIRUBIN TOTAL (BEAKER) (test odbo=197) 0.5 mg/dL 0.2-1.2 BILIRUBIN DIRECT (BEAKER) (test rzdr=801) 0.2 mg/dL 0.1-0.5 ALKALINE PHOSPHATASE (BEAKER) (test yfzc=904) 72 U/L 40-150 AST (SGOT) (BEAKER) (test rewr=828) 11 U/L 5-34 ALT (SGPT) (BEAKER) (test punl=650) 13 U/L 6-55 CBC W/PLT COUNT & AUTO [id number] 05:39:00 Test Item Value Reference Range Comments WHITE BLOOD CELL COUNT (BEAKER) (test dvbq=146) 12.7 K/ L 3.5-10.5 RED BLOOD CELL COUNT (BEAKER) (test bejg=788) 3.89 M/ L 3.93-5.22 HEMOGLOBIN (BEAKER) (test vlbt=109) 11.1 GM/DL 11.2-15.7 HEMATOCRIT (BEAKER) (test yfiq=142) 36.8 % 34.1-44.9 MEAN CORPUSCULAR VOLUME (BEAKER) (test fsus=455) 94.6 fL 79.4-94.8 MEAN CORPUSCULAR HEMOGLOBIN (BEAKER) (test 28.5 pg 25.6-32.2 weed=963) MEAN CORPUSCULAR HEMOGLOBIN CONC (BEAKER) (test 30.2 GM/DL 32.2-35.5 uefk=649) RED CELL DISTRIBUTION WIDTH (BEAKER) (test 15.2 % 11.7-14.4 tjpi=621) PLATELET COUNT (BEAKER) (test lkfo=665) 243 K/CU MM 150-450 MEAN PLATELET VOLUME (BEAKER) (test nhyk=807) 9.6 fL 9.4-12.3 NUCLEATED RED BLOOD CELLS (BEAKER) (test 0 /100 WBC 0-0 teoz=349) NEUTROPHILS RELATIVE PERCENT (BEAKER) (test 86 % shhv=167) LYMPHOCYTES RELATIVE PERCENT (BEAKER) (test 12 % fhdh=456) MONOCYTES RELATIVE PERCENT (BEAKER) (test 2 % tnnl=710) EOSINOPHILS RELATIVE PERCENT (BEAKER) (test 0 % tzxf=550) BASOPHILS RELATIVE PERCENT (BEAKER) (test 0 % xmkz=664) NEUTROPHILS ABSOLUTE COUNT (BEAKER) (test 10.84 K/ L 1.56-6.13 zwxo=487) LYMPHOCYTES ABSOLUTE COUNT (BEAKER) (test 1.47 K/ L 1.18-3.74 anxf=953) MONOCYTES ABSOLUTE COUNT (BEAKER) (test 0.20 K/ L 0.24-0.36 jylg=188) EOSINOPHILS ABSOLUTE COUNT (BEAKER) (test 0.00 K/ L 0.04-0.36 wjdb=955) BASOPHILS ABSOLUTE COUNT (BEAKER) (test 0.01 K/ L 0.01-0.08 ocyg=826) IMMATURE GRANULOCYTES-RELATIVE PERCENT (BEAKER) 1 % 0-1 (test rflb=6911) B-TYPE NATRIURETIC FACTOR (BNP)2018-02-10 23:10:00 Test Item Value Reference Range Comments B-TYPE NATRIURETIC PEPTIDE (BEAKER) (test 125 pg/mL 0-100 hvjq=710) [id number] 22:58:00 Test Item Value Reference Range Comments MAGNESIUM (BEAKER) (test rbkn=744) 2.2 mg/dL 1.6-2.6 BASIC METABOLIC [id number] 22:58:00 Test Item Value Reference Range Comments SODIUM (BEAKER) (test 138 meq/L 136-145 dfya=546) POTASSIUM (BEAKER) (test 3.9 meq/L 3.5-5.1 xery=265) CHLORIDE (BEAKER) (test 104 meq/L 98-107 uoak=429) CO2 (BEAKER) (test 25 meq/L 22-29 vyvz=792) BLOOD UREA NITROGEN 34 mg/dL 7-21 (BEAKER) (test tano=500) CREATININE (BEAKER) (test 1.08 mg/dL 0.57-1.25 rnyd=942) GLUCOSE RANDOM (BEAKER) 173 mg/dL 70-105 (test pzqt=472) CALCIUM (BEAKER) (test 8.7 mg/dL 8.4-10.2 xlqg=393) EGFR (BEAKER) (test 49 mL/min/1.73 sq m ESTIMATED GFR IS NOT deid=7193) ACCURATE CREATININE CLEARANCE IN PREDICTING GLOMERULAR FILTRATION RATE. ESTIMATED GFR IS NOT APPLICABLE FOR DIALYSIS PATIENTS. HEPATIC FUNCTION [id number] 22:58:00 Test Item Value Reference Range Comments TOTAL PROTEIN (BEAKER) (test znmj=936) 5.7 gm/dL 6.0-8.3 ALBUMIN (BEAKER) (test ohwd=7529) 3.3 g/dL 3.5-5.0 BILIRUBIN TOTAL (BEAKER) (test hjhd=062) 0.3 mg/dL 0.2-1.2 BILIRUBIN DIRECT (BEAKER) (test zovx=899) 0.2 mg/dL 0.1-0.5 ALKALINE PHOSPHATASE (BEAKER) (test ogxn=709) 92 U/L 40-150 AST (SGOT) (BEAKER) (test cvem=249) 14 U/L 5-34 ALT (SGPT) (BEAKER) (test dzps=240) 13 U/L 6-55 [id number] 22:34:00 Test Item Value Reference Range Comments PROTIME (BEAKER) (test ozpi=406) 13.4 seconds 11.7-14.7 INR (BEAKER) (test ptin=039) 1.0 <=5.9 PARTIAL THROMBOPLASTIN TIME (BEAKER) (test 29.2 seconds 22.5-36.0 wjkh=781) RECOMMENDED COUMADIN/WARFARIN INR THERAPY RANGESSTANDARD DOSE: 2.0 - 3.0 Includes: PROPHYLAXIS forvenous thrombosis, systemic embolization; TREATMENT for venous thrombosis and/or pulmonary embolus.HIGH RISK: Target INR is 2.5-3.5 for patients with mechanical heart valves.CBC W/PLT COUNT & AUTO [id number] 22:29:00 Test Item Value Reference Range Comments WHITE BLOOD CELL COUNT (BEAKER) (test fuca=365) 18.4 K/ L 3.5-10.5 RED BLOOD CELL COUNT (BEAKER) (test kwkk=370) 3.92 M/ L 3.93-5.22 HEMOGLOBIN (BEAKER) (test plci=209) 11.3 GM/DL 11.2-15.7 HEMATOCRIT (BEAKER) (test nmnn=158) 37.2 % 34.1-44.9 MEAN CORPUSCULAR VOLUME (BEAKER) (test jnsw=710) 94.9 fL 79.4-94.8 MEAN CORPUSCULAR HEMOGLOBIN (BEAKER) (test 28.8 pg 25.6-32.2 eitf=840) MEAN CORPUSCULAR HEMOGLOBIN CONC (BEAKER) (test 30.4 GM/DL 32.2-35.5 ykhx=375) RED CELL DISTRIBUTION WIDTH (BEAKER) (test 15.4 % 11.7-14.4 tskg=311) PLATELET COUNT (BEAKER) (test lhmt=099) 304 K/CU MM 150-450 MEAN PLATELET VOLUME (BEAKER) (test bbac=544) 9.4 fL 9.4-12.3 NUCLEATED RED BLOOD CELLS (BEAKER) (test 0 /100 WBC 0-0 ucns=974) NEUTROPHILS RELATIVE PERCENT (BEAKER) (test 85 % qseo=756) LYMPHOCYTES RELATIVE PERCENT (BEAKER) (test 11 % qbvq=953) MONOCYTES RELATIVE PERCENT (BEAKER) (test 3 % mdgd=924) EOSINOPHILS RELATIVE PERCENT (BEAKER) (test 0 % pkck=414) BASOPHILS RELATIVE PERCENT (BEAKER) (test 0 % hjge=631) NEUTROPHILS ABSOLUTE COUNT (BEAKER) (test 15.51 K/ L 1.56-6.13 teeq=557) LYMPHOCYTES ABSOLUTE COUNT (BEAKER) (test 2.04 K/ L 1.18-3.74 fdim=791) MONOCYTES ABSOLUTE COUNT (BEAKER) (test 0.57 K/ L 0.24-0.36 iroo=999) EOSINOPHILS ABSOLUTE COUNT (BEAKER) (test 0.00 K/ L 0.04-0.36 sccs=406) BASOPHILS ABSOLUTE COUNT (BEAKER) (test 0.02 K/ L 0.01-0.08 knhb=161) IMMATURE GRANULOCYTES-RELATIVE PERCENT (BEAKER) 1 % 0-1 (test rvlx=9822) RAD, CHEST, 2 [id number] 20:38:00Reason for exam:->COUGH, PURULENT SPUTUM. HX OF BRONCHIECTASISShould this be performed at the bedside?-> NoFINAL REPORT Examination: Two view Chest X-ray. CLINICAL HISTORY: Productivecough COMPARISON: 03/24/2017 The cardiomediastinal and hilar contours [...] pleural effusion or acute bony abnormality. Signed: Sami Sherwood MDReport Verified Date/Time: 02/10/2018 20:38:56 Reading Location: [address] Reading Room POCT-GLUCOSE [id number] 17:48:00 Test Item Value Reference Range Comments POC-GLUCOSE METER (BEAKER) 263 mg/dL 70-110 TESTED AT [facility] [address] (test ytqj=4821) [facility] [address] BLOOD [id number] 01:00:00 Test Item Value Reference Range Comments CULTURE (BEAKER) (test xrgp=9386) No growth in 5 days BLOOD [id number] 01:00:00 Test Item Value Reference Range Comments CULTURE (BEAKER) (test cedu=0091) No growth in 5 days SPUTUM CULTURE + GRAM [id number] 11:21:00 Test Item Value Reference Range Comments CULTURE (BEAKER) (test phkc=4742) Amikacin (test code=1) Aztreonam (test code=32) Cefepime (test code=51) Ceftazidime (test code=27) Ciprofloxacin (test code=7) Doripenem (test zntr=308) Gentamicin (test code=18) Imipenem (test code=19) Levofloxacin (test code=22) Meropenem (test code=34) Piperacillin (test code=24) Piperacillin + Tazobactam (test code=29) Tobramycin (test code=25) CULTURE (BEAKER) (test PSEUDOMONAS AERUGINOSA 4+ Pseudomonas bsuw=0665) (MUCOID-PHENOTYPE) aeruginosa Amikacin (test code=1) Aztreonam (test code=32) Cefepime (test code=51) Ceftazidime (test code=27) Ciprofloxacin (test code=7) Doripenem (test jruo=127) Gentamicin (test code=18) Imipenem (test code=19) Levofloxacin (test code=22) Meropenem (test code=34) Piperacillin (test code=24) Piperacillin + Tazobactam (test code=29) Tobramycin (test code=25) CULTURE (BEAKER) (test 4+ Pseudomonas uynf=7651) aeruginosa (Mucoid-phenotype) GRAM STAIN RESULT 2+ WBCs (BEAKER) (test kadi=3550) GRAM STAIN RESULT 0-5 epithelial cells (BEAKER) (test txzr=832444) GRAM STAIN RESULT 4+ gram negative rods (BEAKER) (test kjej=968693) GRAM STAIN RESULT 1+ gram positive cocci (BEAKER) (test in pairs and clusters srag=279463) GRAM STAIN RESULT <1+ yeast (BEAKER) (test nenb=553873) 4+ Normal respiratory greyson presentCT, CHEST, WITH HIGH RESOLUTION, INTERSTITAL LUNG [id number] 08:41:00Compare to prior imagingFINAL REPORT CT of [...] Verified Date/Time: 03/27/2017 08: 41:17 Reading Location: [facility] Diagnostic Imaging Reading Room - [place] [id number] BASIC METABOLIC [id number] 05:50:00 Test Item Value Reference Range Comments SODIUM (BEAKER) (test 142 meq/L 136-145 jzpu=171) POTASSIUM (BEAKER) (test 3.7 meq/L 3.5-5.1 mike=296) CHLORIDE (BEAKER) (test 107 meq/L 98-107 mohs=852) CO2 (BEAKER) (test 27 meq/L 22-29 kban=144) BLOOD UREA NITROGEN 35 mg/dL 7-21 (BEAKER) (test beeo=165) CREATININE (BEAKER) (test 0.77 mg/dL 0.57-1.25 pexx=823) GLUCOSE RANDOM (BEAKER) 113 mg/dL 70-105 (test vxaa=102) CALCIUM (BEAKER) (test 8.9 mg/dL 8.4-10.2 xfrd=136) EGFR (BEAKER) (test 72 mL/min/1.73 sq m ESTIMATED GFR IS NOT zuxq=0773) ACCURATE CREATININE CLEARANCE IN PREDICTING GLOMERULAR FILTRATION RATE. ESTIMATED GFR IS NOT APPLICABLE FOR DIALYSIS PATIENTS. HEPATIC FUNCTION [id number] 07:53:00 Test Item Value Reference Range Comments TOTAL PROTEIN (BEAKER) (test giur=077) 6.5 gm/dL 6.0-8.3 ALBUMIN (BEAKER) (test cfhw=1984) 3.4 g/dL 3.5-5.0 BILIRUBIN TOTAL (BEAKER) (test kqyf=101) 0.4 mg/dL 0.2-1.2 BILIRUBIN DIRECT (BEAKER) (test bsld=863) 0.2 mg/dL 0.1-0.5 ALKALINE PHOSPHATASE (BEAKER) (test snjp=091) 110 U/L 40-150 AST (SGOT) (BEAKER) (test djjv=506) 10 U/L 5-34 ALT (SGPT) (BEAKER) (test coba=205) 14 U/L 6-55 BASIC METABOLIC [id number] 07:53:00 Test Item Value Reference Range Comments SODIUM (BEAKER) (test 142 meq/L 136-145 umej=542) POTASSIUM (BEAKER) (test 3.9 meq/L 3.5-5.1 omfk=367) CHLORIDE (BEAKER) (test 109 meq/L 98-107 kaml=452) CO2 (BEAKER) (test 21 meq/L 22-29 gmbi=642) BLOOD UREA NITROGEN 30 mg/dL 7-21 (BEAKER) (test hqyw=051) CREATININE (BEAKER) (test 0.82 mg/dL 0.57-1.25 hlrz=047) GLUCOSE RANDOM (BEAKER) 111 mg/dL 70-105 (test eqfr=480) CALCIUM (BEAKER) (test 9.2 mg/dL 8.4-10.2 uymx=913) EGFR (BEAKER) (test 67 mL/min/1.73 sq m ESTIMATED GFR IS NOT hfax=1517) ACCURATE CREATININE CLEARANCE IN PREDICTING GLOMERULAR FILTRATION RATE. ESTIMATED GFR IS NOT APPLICABLE FOR DIALYSIS PATIENTS. CBC (HEMOGRAM ONLY)2017-03-26 06:37:00 Test Item Value Reference Range Comments WHITE BLOOD CELL COUNT (BEAKER) (test hnmk=982) 28.7 K/ L 3.5-10.5 RED BLOOD CELL COUNT (BEAKER) (test ikfi=772) 4.67 M/ L 3.93-5.22 HEMOGLOBIN (BEAKER) (test ljmp=804) 13.1 GM/DL 11.2-15.7 HEMATOCRIT (BEAKER) (test nrja=730) 43.2 % 34.1-44.9 MEAN CORPUSCULAR VOLUME (BEAKER) (test rvgx=027) 92.5 fL 79.4-94.8 MEAN CORPUSCULAR HEMOGLOBIN (BEAKER) (test 28.1 pg 25.6-32.2 wjon=087) MEAN CORPUSCULAR HEMOGLOBIN CONC (BEAKER) (test 30.3 GM/DL 32.2-35.5 pdsz=418) RED CELL DISTRIBUTION WIDTH (BEAKER) (test 14.3 % 11.7-14.4 lwjg=725) PLATELET COUNT (BEAKER) (test evbq=691) 423 K/CU MM 150-450 MEAN PLATELET VOLUME (BEAKER) (test qgjx=974) 9.9 fL 9.4-12.3 NUCLEATED RED BLOOD CELLS (BEAKER) (test 0 /100 WBC 0-0 jyzy=141) T4, [id number] 19:51:00 Test Item Value Reference Range Comments FREE T4 (BEAKER) (test zhor=699) 1.28 ng/dL 0.70-1.48 TSH/FREE T4 IF [id number] 19:02:00 Test Item Value Reference Range Comments THYROID STIMULATING HORMONE (BEAKER) (test 0.09 uIU/mL 0.35-4.94 xbsl=926) INFLUENZA A H1N1 [id number] 14:59:00 Test Item Value Reference Range Comments INFLUENZA A RNA (BEAKER) (test Not Detected Not Detected, Inconclusive ivnx=3759) NOVEL H1N1 RNA (BEAKER) (test Not Detected Not Detected, Inconclusive ditu=9790) These assays were performed by real-time RT-PCR (home teaching grades 7 and 8 teacher-PCR) utilizing fluorogenic hydrolysis probe technology for the detection of human Influenza A viruses and the differential detection of novel H1N1 Influenza virus in respiratory specimens. The test is composed of (1) an RNA extraction from patient specimen, and (2) home teaching grades 7 and 8 teacher-PCR amplification and detection with human Influenza A and novel J5X1-aslvwils primers and probes. A well-conserved region of [...] and its performance characteristics determined by the [facility] Pathology Department, Section of Molecular Pathology. It has not been cleared or approved by the U.S. Food and Drug Administration (FDA). SinceFDA approval is not required for clinical use of the test, validation was done as required by The Clinical Laboratory Amendments of 1988.These assays were performed by real-time RT-PCR (home teaching grades 7 and 8 teacher-PCR) utilizing fluorogenic hydrolysis probe technology for the detection of human Influenza A viruses and the differential detection of novel H1N1 Influenza virus in respiratory specimens. The test is composed of (1) an RNA extraction from patient specimen, and (2) home teaching grades 7 and 8 teacher-PCR amplification and detection with human Influenza A and novel N9X7-pgyrmjea primers and probes. A well-conserved region of [...] and its performance characteristics determined by the [facility] Pathology Department, Section of Molecular Pathology. It has not been cleared or approved by the U.S. Food and Drug Administration ( FDA). Since FDA approval is not required for clinical use of the test, validation was done as required by The Clinical Laboratory Amendments of 1988.BASIC METABOLIC [id number] 06:47:00 Test Item Value Reference Range Comments SODIUM (BEAKER) (test 143 meq/L 136-145 kuiq=584) POTASSIUM (BEAKER) (test 4.0 meq/L 3.5-5.1 Specimen slightly tjvd=079) hemolyzed CHLORIDE (BEAKER) (test 109 meq/L 98-107 ouzi=717) CO2 (BEAKER) (test 25 meq/L 22-29 mrwp=244) BLOOD UREA NITROGEN 35 mg/dL 7-21 (BEAKER) (test ukeq=759) CREATININE (BEAKER) (test 0.77 mg/dL 0.57-1.25 Specimen slightly jczh=012) hemolyzed GLUCOSE RANDOM (BEAKER) 99 mg/dL 70-105 (test qxvc=733) CALCIUM (BEAKER) (test 9.2 mg/dL 8.4-10.2 cqtw=332) EGFR (BEAKER) (test 72 mL/min/1.73 sq m ESTIMATED GFR IS NOT ayxg=7724) ACCURATE CREATININE CLEARANCE IN PREDICTING GLOMERULAR FILTRATION RATE. ESTIMATED GFR IS NOT APPLICABLE FOR DIALYSIS PATIENTS. CBC (HEMOGRAM ONLY)2017-03-25 06:45:00 Test Item Value Reference Range Comments WHITE BLOOD CELL COUNT (BEAKER) (test riti=821) 25.9 K/ L 3.5-10.5 RED BLOOD CELL COUNT (BEAKER) (test chez=925) 4.32 M/ L 3.93-5.22 HEMOGLOBIN (BEAKER) (test xolm=925) 12.5 GM/DL 11.2-15.7 HEMATOCRIT (BEAKER) (test ntpv=399) 39.8 % 34.1-44.9 MEAN CORPUSCULAR VOLUME (BEAKER) (test dald=021) 92.1 fL 79.4-94.8 MEAN CORPUSCULAR HEMOGLOBIN (BEAKER) (test 28.9 pg 25.6-32.2 fjhl=100) MEAN CORPUSCULAR HEMOGLOBIN CONC (BEAKER) (test 31.4 GM/DL 32.2-35.5 aqmr=264) RED CELL DISTRIBUTION WIDTH (BEAKER) (test 13.9 % 11.7-14.4 koyn=017) PLATELET COUNT (BEAKER) (test pixm=335) 363 K/CU MM 150-450 MEAN PLATELET VOLUME (BEAKER) (test ymtx=072) 9.8 fL 9.4-12.3 NUCLEATED RED BLOOD CELLS (BEAKER) (test 0 /100 WBC 0-0 opfi=668) STREP PNEUMONIAE [id number] 21:41:00 Test Item Value Reference Range Comments STREP PNEUMONIAE ANTIGEN Presumptive negative for Presumptive negative for (BEAKER) (test pneumococcal pneumonia - pneumococcal pneumonia - xalu=2123) see comment see commen Presumptive negative for pneumococcal pneumonia, suggesting no current or recent pneumococcal infection. Infection due to S. pneumoniae cannot be ruled out since the antigen present in the sample may be below the detection limit of the test.LEGIONELLA ANTIGEN, [id number] 21:40:00 Test Item Value Reference Range Comments L. PNEUMOPHILA SEROGP 1 Negative - see Negative for L. UR AG (BEAKER) (test comment pneumophila serogroup 1 fvik=9384) antigen, suggesting no recent or current infection with this serogroup. Legionellosis cannot be ruled out since other serogroups and species may cause disease. RAPID INFLUENZA A&B [id number] 21:39:00 Test Item Value Reference Range Comments RAPID INFLUENZA A AG (BEAKER) (test Negative Negative, Inconclusive dtky=8717) RAPID INFLUENZA B AG (BEAKER) (test Negative Negative, Inconclusive bdrl=8004) CBC W/PLT COUNT & AUTO [id number] 18:13:00 Test Item Value Reference Range Comments WHITE BLOOD CELL COUNT (BEAKER) (test sdjv=081) 24.1 K/ L 3.5-10.5 RED BLOOD CELL COUNT (BEAKER) (test nodu=417) 4.80 M/ L 3.93-5.22 HEMOGLOBIN (BEAKER) (test gucp=919) 14.0 GM/DL 11.2-15.7 HEMATOCRIT (BEAKER) (test goiy=852) 45.1 % 34.1-44.9 MEAN CORPUSCULAR VOLUME (BEAKER) (test afer=196) 94.0 fL 79.4-94.8 MEAN CORPUSCULAR HEMOGLOBIN (BEAKER) (test 29.2 pg 25.6-32.2 ggxy=967) MEAN CORPUSCULAR HEMOGLOBIN CONC (BEAKER) (test 31.0 GM/DL 32.2-35.5 buqh=697) RED CELL DISTRIBUTION WIDTH (BEAKER) (test 14.2 % 11.7-14.4 shty=686) PLATELET COUNT (BEAKER) (test nrgk=166) 492 K/CU MM 150-450 MEAN PLATELET VOLUME (BEAKER) (test etvr=118) 9.8 fL 9.4-12.3 NUCLEATED RED BLOOD CELLS (BEAKER) (test 0 /100 WBC 0-0 ucip=879) NEUTROPHILS RELATIVE PERCENT (BEAKER) (test 89 % qjnf=677) LYMPHOCYTES RELATIVE PERCENT (BEAKER) (test 8 % xgrh=382) MONOCYTES RELATIVE PERCENT (BEAKER) (test 2 % vbes=479) EOSINOPHILS RELATIVE PERCENT (BEAKER) (test 0 % qgpo=967) BASOPHILS RELATIVE PERCENT (BEAKER) (test 0 % gubh=121) NEUTROPHILS ABSOLUTE COUNT (BEAKER) (test 21.53 K/ L 1.56-6.13 pego=212) LYMPHOCYTES ABSOLUTE COUNT (BEAKER) (test 1.87 K/ L 1.18-3.74 sznt=046) MONOCYTES ABSOLUTE COUNT (BEAKER) (test 0.35 K/ L 0.24-0.36 lbun=502) EOSINOPHILS ABSOLUTE COUNT (BEAKER) (test 0.00 K/ L 0.04-0.36 agok=200) BASOPHILS ABSOLUTE COUNT (BEAKER) (test 0.06 K/ L 0.01-0.08 xrow=358) IMMATURE GRANULOCYTES-RELATIVE PERCENT (BEAKER) 1 % 0-1 (test whbo=2304) (MANUAL DIFFERENTIAL)2017-03-24 18:13:00 Test Item Value Reference Range Comments NEUTROPHILS - REL (DIFF) (BEAKER) (test 86 % pbnh=4343) LYMPHOCYTES - REL (DIFF) (BEAKER) (test 10 % kgvg=8136) MONOCYTES - REL (DIFF) (BEAKER) (test fxiy=1174) 2 % BANDS - REL (DIFF) (BEAKER) (test pnqg=8443) 2 % 0-10 NEUTROPHILS - ABS (DIFF) (BEAKER) (test 20.73 K/ L 1.80-8.00 fnks=0562) LYMPHOCYTES - ABS (DIFF) (BEAKER) (test 2.41 K/ L 1.48-4.50 cqgq=0536) MONOCYTES - ABS (DIFF) (BEAKER) (test dezx=4320) 0.48 K/ L 0.00-1.30 BANDS-ABS (DIFF) (BEAKER) (test dpwl=9744) 0.5 K/ L 0.0-0.8 TOTAL COUNTED (BEAKER) (test fgkp=1093) 100 BANDS + SEGMENTED NEUTROPHILS (BEAKER) (test 21.21 braa=9453) WBC MORPHOLOGY (BEAKER) (test mnlz=127) Normal GIANT PLATELETS (BEAKER) (test qnhs=934) Present ANISOCYTOSIS (BEAKER) (test fzzt=489) 1+ few POLYCHROMATOPHILLIC RBCS(BEAKER) (test xeiy=449) 1+ few POCT-LACTIC ACID, [id number] 17:31:00 Test Item Value Reference Range Comments POC-LACTIC ACID, VENOUS 1.8 mmol/L 0.9-1.7 TESTED AT [facility] [address] [place] [address] (BEAKER) (test nalh=7164) [facility] [id number] BASIC METABOLIC [id number] 15:20:00 Test Item Value Reference Range Comments SODIUM (BEAKER) (test 143 meq/L 136-145 nfbs=656) POTASSIUM (BEAKER) (test 4.2 meq/L 3.5-5.1 zmxb=709) CHLORIDE (BEAKER) (test 107 meq/L 98-107 grny=940) CO2 (BEAKER) (test 25 meq/L 22-29 ixok=993) BLOOD UREA NITROGEN 32 mg/dL 7-21 (BEAKER) (test qzzb=754) CREATININE (BEAKER) (test 1.12 mg/dL 0.57-1.25 txxn=641) GLUCOSE RANDOM (BEAKER) 157 mg/dL 70-105 (test lhum=100) CALCIUM (BEAKER) (test 9.7 mg/dL 8.4-10.2 exls=417) EGFR (BEAKER) (test 47 mL/min/1.73 sq m ESTIMATED GFR IS NOT gnle=8935) ACCURATE CREATININE CLEARANCE IN PREDICTING GLOMERULAR FILTRATION RATE. ESTIMATED GFR IS NOT APPLICABLE FOR DIALYSIS PATIENTS. RAD, CHEST, 1 VIEW, NON [id number] 15:00:00Reason for exam:->SHORTNESS OF BREATHReason for exam:->COUGHShould this be performed at the bedside?-> YesFINAL REPORT AP chest HISTORY: Cough, shortness of breath COMPARISON: 03/17/2017, 10/30/2016. IMPRESSION:Stable cardiac silhouette. No acute osseous findings. Bibasilar opacities may reflect pneumonia or atelectasis. No large effusion. No pneumothorax. Consider contrast-enhanced chest CT for further evaluation. Signed: Robert Love MDReport Verified Date/ Time: 03/24/2017 15:00:31 Reading Location: [facility] Mammo Reading Room RAD , CHEST, 2 [id number] 13:54:00Reason for Exam:->hypoxemiaLocation-> [facility] and lateral chest HISTORY: [...] with chest CT may be useful. Signed: Robert Love MDReport Verified Date/Time: 03/17/2017 13:54:25 Reading Location: [address] Radiology Reading Room
[2018-03-26 14:46] LABS: Urine Blood 1+ (NEG); Urine Glucose NEGATIVE (NEG); Urine Protein 1+ (NEG); Urine pH 5.5 (5.0-7.0)
[2018-03-26 15:04] LABS: Urine Bacteria NONE SEEN /HPF (<20); Urine Culture Reflex Order NOT NEEDED
[2018-03-26] MEDS ORDERED: DIAZEPAM 2 MG TABLET ONE (15:24)
[2018-03-26] MEDS ORDERED: DEXAMETHASONE 10 MG/ML VIAL ONE (15:58)
--- NOTE | 2018-03-26 16:50 | EDPHYS ---
Physician Documentation [facility] Name: Mary Gonzales Age: 82 yrs Sex: Female : 1935 Arrival Date: 03/26/2018 Time: 13:39 Bed 24 Private MD: Lul Borrego ED Physician Gary Galvez HPI: 03/26 15:00 This 82 yrs old Female presents to ER via Wheelchair with complaints of Neck pm1 pain and burning with urination. 15:00 The patient or guardian complains of pain. The symptoms are located on the neck. Onset: pm1 The symptoms/episode began/occurred 1 week(s) ago. Context: The neck injury/problem resulted from Sleeping with head tilted to the side. Sleeps sitting up. Associated signs and symptoms: Pertinent negatives: fever, headache, bladder incontinence, bowel incontinence, nausea, numbness, tingling, vomiting, chest pain, shortness of breath. The pain does not radiate. Modifying factors: The symptoms are alleviated by nothing. the symptoms are aggravated by movement. Severity of symptoms: in the emergency department the symptoms are actually worse. The patient has not recently seen a physician. Patient with onset of pain with urination on Friday. Patient with 1 week of neck pain. Onset after sleeping sitting up per family member. Historical: - Allergies: 13:46 Ultram; aj - Home Meds: 13:46 aspirin 81 mg Oral TbEC 1 tab once daily [Active]; Brovana 15 mcg/2 mL inhalation nebu aj 2 mL 2 times per day [Active]; Inderal LA Oral [Active]; Mucinex Oral [Active]; Norvasc Oral [Active]; Xanax 0.25 mg Oral tab [Active]; Zoloft Oral [Active]; Zyrtec Oral [Active]; - PMHx: 13:46 COPD; Depression; tremors; aj - PSHx: 13:46 Hysterectomy; Cholecystectomy; aj - Immunization history:: Adult Immunizations up to date. - Social history:: Smoking status: Patient/guardian denies using tobacco. - Ebola Screening: : Patient negative for fever greater than or equal to 101.5 degrees Fahrenheit, and additional compatible Ebola Virus Disease symptoms Patient denies exposure to infectious person Patient denies travel to an Ebola-affected area in the 21 days before illness onset No symptoms or risks identified at this time. ROS: 15:00 Constitutional: Negative for fever, chills, and weight loss, Eyes: Negative for injury, pm1 pain, redness, and discharge, ENT: Negative for injury, pain, and discharge. 15:00 Cardiovascular: Negative for chest pain, palpitations, and edema, Respiratory: Negative for shortness of breath, cough, wheezing, and pleuritic chest pain, Abdomen/GI: Negative for abdominal pain, nausea, vomiting, diarrhea, and constipation, Back: Negative for injury and pain, MS/Extremity: Negative for injury and deformity, Skin: Negative for injury, rash, and discoloration. 15:00 Neuro: Negative for headache, weakness, numbness, tingling, and seizure. 15:00 Neck: Positive for tenderness, Negative for mass, stiffness, swelling, swollen nodes, bony tenderness. 15:00 : Positive for burning with urination, Negative for hematuria, vaginal discharge, vaginal itching. Exam: 15:00 Constitutional: This is a well developed, well nourished patient who is awake, alert, pm1 and in no acute distress. Head/Face: Normocephalic, atraumatic. Eyes: Pupils equal round and reactive to light, extra-ocular motions intact. Lids and lashes normal. Conjunctiva and sclera are non-icteric and not injected. Cornea within normal limits. Periorbital areas with no swelling, redness, or edema. ENT: Nares patent. No nasal discharge, no septal abnormalities noted. Tympanic membranes are normal and external auditory canals are clear. Oropharynx with no redness, swelling, or masses, exudates, or evidence of obstruction, uvula midline. Mucous membranes moist. Chest/axilla: Normal chest wall appearance and motion. Nontender with no deformity. No lesions are appreciated. 15:00 Cardiovascular: Regular rate and rhythm with a normal S1 and S2. No gallops, murmurs, or rubs. Normal PMI, no JVD. No pulse deficits. Respiratory: Lungs have equal breath sounds bilaterally, clear to auscultation and percussion. No rales, rhonchi or wheezes noted. No increased work of breathing, no retractions or nasal flaring. Abdomen/GI: Soft, non-tender, with normal bowel sounds. No distension or tympany. No guarding or rebound. No evidence of tenderness throughout. Back: No spinal tenderness. No costovertebral tenderness. Full range of motion. Skin: Warm, dry with normal turgor. Normal color with no rashes, no lesions, and no evidence of cellulitis. MS/ Extremity: Pulses equal, no cyanosis. Neurovascular intact. Full, normal range of motion. 15:00 Neck: External neck: is normal, mass, is not appreciated, rash, is not appreciated, tenderness, of the left trapezius and right trapezius, C-spine: appears grossly normal, no acute changes, ROM/movement: is normal, no acute changes, Lymph nodes: no appreciated lymphadenopathy. 15:00 Neuro: Orientation: is normal, Motor: is normal, no acute changes, Sensation: is normal, no obvious gross deficits, Gait: is steady, at a normal pace, without difficulty. Vital Signs: 13:46 BP 98 / 83; Pulse 129; Resp 20; Temp 97.3; Pulse Ox 93% on R/A; Weight 67.13 kg; Height aj 5 ft. 7 in. (170.18 cm); 15:26 BP 144 / 76; Pulse 132; Resp 18; Pulse Ox 94% on R/A; tl3 16:05 BP 138 / 69; Pulse 116; Resp 18; Pulse Ox 93% on R/A; tl3 16:53 BP 134 / 81; Pulse 112; Resp 18; Pulse Ox 95% on R/A; tl3 13:46 Body Mass Index 23.18 (67.13 kg, 170.18 cm) aj MDM: 14:04 Patient medically screened. pm1 15:25 Data reviewed: vital signs. pm1 15:50 ED course: Patient wanted to go home. Patient without any improvement of her pm1 musculoskeletal pain. Will give the patient steroid injection in addition to Valium already given. 16:48 Counseling: I had a detailed discussion with the patient and/or guardian regarding: the pm1 historical points, exam findings, and any diagnostic results supporting the discharge/admit diagnosis, lab results, the need for outpatient follow up, to return to the emergency department if symptoms worsen or persist or if there are any questions or concerns that arise at home. 03/26 14:06 Order name: Urine Dipstick--Ancillary (enter results); Complete Time: 15:03 eb 03/26 14:18 Order name: UA MICROSCOPIC; Complete Time: 15:05 tl3 Administered Medications: 15:16 Drug: Valium 2 mg Route: PO; tl3 16:04 Follow up: Response: No adverse reaction tl3 16:05 Drug: Decadron 10 mg Route: IM; Site: right gluteus; tl3 16:54 Follow up: Response: No adverse reaction tl3 Disposition: 18:35 Co-signature as Attending Physician, Gary Galvez MD. rn Disposition: 03/26/18 16:49 Discharged to Home. Impression: Torticollis, Dysuria. - Condition is Stable. - Discharge Instructions: Dysuria, Acute Torticollis, Adult. - Prescriptions for Valium 2 mg Oral Tablet - take 1 tablet by ORAL route every 8 hours As needed; 20 tablet. Medrol (Lázaro) 4 mg Oral Tablets, Dose Pack - take 1 tablet by ORAL route as directed - follow package instructions; 1 packet. - Medication Reconciliation Form, Thank You Letter, Prescription Opioid Use form. - Follow up: Emergency Department; When: As needed; Reason: Worsening of condition. Follow up: Lul Borrego MD; When: 2 - 3 days; Reason: Recheck today's complaints, Continuance of care, Re-evaluation by your physician. - Problem is new. - Symptoms have improved. Signatures: Dispatcher [employer] EDMaribel Guajardo RN RN aj Nieto, Roman, MD MD rn Marinas, Patrick, [employer] ASSOCIATE pm1 Gina Doe RN RN tl3 Corrections: (The following items were deleted from the chart) 17:01 16:49 03/26/2018 16:49 Discharged to Home. Impression: Torticollis; Dysuria. Condition tl3 is Stable. Forms are Medication Reconciliation Form, Thank You Letter, Antibiotic Education, Prescription Opioid Use. Follow up: Emergency Department; When: As needed; Reason: Worsening of condition. Follow up: Lul Borrego; When: 2 - 3 days; Reason: Recheck today's complaints, Continuance of care, Re-evaluation by your physician. Problem is new. Symptoms have improved. pm1
--- NOTE | 2018-03-26 16:50 | ER ---
Nurse's Notes [facility] Name: Mary Gonzales Age: 82 yrs Sex: Female : 1935 Arrival Date: 03/26/2018 Time: 13:39 Bed 24 Private MD: Lul Borrego Diagnosis: Torticollis;Dysuria Presentation: 03/26 13:44 Presenting complaint: Patient states: Neck pain, and pain with urination that started aj on Friday. Transition of care: patient was not received from another setting of care. Onset of symptoms was March 22, 2018. Risk Assessment: Do you want to hurt yourself or someone else? Patient reports no desire to harm self or others. Initial Sepsis Screen: Does the patient meet any 2 criteria? No. Patient's initial sepsis screen is negative. Does the patient have a suspected source of infection? No. Patient's initial sepsis screen is negative. Care prior to arrival: None. 13:44 Method Of Arrival: Wheelchair aj 13:44 Acuity: JOANNA 3 aj Triage Assessment: 13:46 General: Appears in no apparent distress. comfortable, Behavior is calm, cooperative, aj appropriate for age. Pain: Complains of pain in back of neck. Neuro: Level of Consciousness is awake, alert, obeys commands, Oriented to person, place, time, situation, Appropriate for age. Respiratory: Airway is patent Respiratory effort is even, unlabored, Respiratory pattern is regular, symmetrical. : Reports burning with urination. Derm: Skin is intact, is healthy with good turgor, Skin is pink, warm \T\ dry. normal. Musculoskeletal: Reports pain in back of neck. Historical: - Allergies: 13:46 Ultram; aj - Home Meds: 13:46 aspirin 81 mg Oral TbEC 1 tab once daily [Active]; Brovana 15 mcg/2 mL inhalation nebu aj 2 mL 2 times per day [Active]; Inderal LA Oral [Active]; Mucinex Oral [Active]; Norvasc Oral [Active]; Xanax 0.25 mg Oral tab [Active]; Zoloft Oral [Active]; Zyrtec Oral [Active]; - PMHx: 13:46 COPD; Depression; tremors; aj - PSHx: 13:46 Hysterectomy; Cholecystectomy; aj - Immunization history:: Adult Immunizations up to date. - Social history:: Smoking status: Patient/guardian denies using tobacco. - Ebola Screening: : Patient negative for fever greater than or equal to 101.5 degrees Fahrenheit, and additional compatible Ebola Virus Disease symptoms Patient denies exposure to infectious person Patient denies travel to an Ebola-affected area in the 21 days before illness onset No symptoms or risks identified at this time. Screenin:36 Abuse screen: Denies threats or abuse. Nutritional screening: No deficits noted. tl3 Tuberculosis screening: No symptoms or risk factors identified. Fall Risk None identified. Assessment: 13:54 General: Appears slender, well groomed, well developed, well nourished, Behavior is tl3 calm, cooperative, appropriate for age. Pain: Complains of pain in back of neck. Neuro: Level of Consciousness is awake, alert, obeys commands, Oriented to person, place, time, situation, Appropriate for age Gait is steady, pt has primary tremors. Cardiovascular: Patient's skin is warm and dry. Respiratory: Airway is patent. GI: No deficits noted. No signs and/or symptoms were reported involving the gastrointestinal system. : Urine is cloudy, Reports burning with urination. EENT: No signs and/or symptoms were reported regarding the EENT system. Derm: No signs and/or symptoms reported regarding the dermatologic system. Musculoskeletal: No signs and/or symptoms reported regarding the musculoskeletal system. 15:26 Reassessment: Patient appears in no apparent distress at this time. No changes from tl3 previously documented assessment. Patient and/or family updated on plan of care and expected duration. Pain level reassessed. Patient is alert, oriented x 3, equal unlabored respirations, skin warm/dry/pink. no needs at this time. 16:53 Reassessment: Patient appears in no apparent distress at this time. No changes from tl3 previously documented assessment. Patient and/or family updated on plan of care and expected duration. Pain level reassessed. Patient is alert, oriented x 3, equal unlabored respirations, skin warm/dry/pink. pt pulse rate down to 112, states pain in neck is better. Vital Signs: 13:46 BP 98 / 83; Pulse 129; Resp 20; Temp 97.3; Pulse Ox 93% on R/A; Weight 67.13 kg; Height aj 5 ft. 7 in. (170.18 cm); 15:26 BP 144 / 76; Pulse 132; Resp 18; Pulse Ox 94% on R/A; tl3 16:05 BP 138 / 69; Pulse 116; Resp 18; Pulse Ox 93% on R/A; tl3 16:53 BP 134 / 81; Pulse 112; Resp 18; Pulse Ox 95% on R/A; tl3 13:46 Body Mass Index 23.18 (67.13 kg, 170.18 cm) ED Course: 13:39 Patient arrived in ED. mr 13:39 Lul Borrego MD is Private Physician. mr 13:45 Triage completed. aj 13:46 Arm band placed on left wrist. Patient placed in an exam room. aj 13:48 Gina Doe, TERESA is Primary Nurse. tl3 13:55 Chalo Mead NP is PHCP. pm1 13:55 Gary Galvez MD is Attending Physician. pm1 15:36 Patient has correct armband on for positive identification. Placed in gown. Bed in low tl3 position. Call light in reach. Side rails up X2. Adult w/ patient. Pulse ox on. NIBP on. Warm blanket given. Pillow given. Head of bed elevated. 15:36 No provider procedures requiring assistance completed. Patient did not have IV access tl3 during this emergency room visit. 16:48 Lul Borrego MD is Referral Physician. pm1 Administered Medications: 15:16 Drug: Valium 2 mg Route: PO; tl3 16:04 Follow up: Response: No adverse reaction tl3 16:05 Drug: Decadron 10 mg Route: IM; Site: right gluteus; tl3 16:54 Follow up: Response: No adverse reaction tl3 Outcome: 16:49 Discharge ordered by . pm1 16:53 Discharged to home ambulatory. tl3 16:53 Condition: stable 16:53 Discharge instructions given to patient, family, Instructed on discharge instructions, follow up and referral plans. medication usage, Demonstrated understanding of instructions, follow-up care, medications, Prescriptions given X 2. 17:01 Patient left the ED. tl3 Signatures: Maribel Montenegro RN TERESA owens FloydKimberly mr Chalo Mead, [employer] SECURITY ARCHITECT pm1 Gina Doe, TERESA MOORE tl3
[2018-03-26 17:05] VITALS: TEMP 97.3
[2018-03-26 17:08] VITALS: BP 134/81; O2SAT 95
== END 2018-03-26 17:01 | disposition home or self-care (01) ==
LOC: ER 13:35
DX: M43.6 Torticollis (principal); R30.0 Dysuria; J44.9 Chronic obstructive pulmonary disease, unspecified; F32.9 Major depressive disorder, single episode, unspecified; Z79.82 Long term (current) use of aspirin; Z88.8 Allergy status to other drugs, medicaments and biological substances
CPT/HCPCS: 96372; 99283; J1100; 81003; 81015

== ENCOUNTER 2018-05-04 11:31 | Emergency (ER) | payer OTHER ==
--- OUTSIDE RECORDS SUMMARY | 2018-05-04 11:34 | XMS REPORT | Clinical Summary ---
:1935 Author Organization [facility] Address [address] [place] [address] Care Team Providers Name Role Phone Socrates Alfonso MD Unavailable Socrates Alfonso MD Primary Care Provider Allergies Active Allergy Reactions Severity Noted Date Comments Tramadol Itching, Rash Low 10/12/2013 Medications Medication Sig Dispensed Refills Start End Date Status Date ALPRAZolam (XANAX) Take 0.25 mg by 0 Active 0.25 MG tablet mouth every night as needed. arformoterol Take 15 mcg by 0 Active (BROVANA) 15 mcg/2 nebulization 2 mL nebulizer (two) times daily. solution cholecalciferol, Take by mouth 0 Active vitamin D3, 50,000 daily . unit Tab aspirin 81 MG EC Take 81 mg by 0 Active tablet mouth daily. cetirizine (ZYRTEC) Take 10 mg by 0 Active 10 MG tablet mouth daily. levothyroxine Take 1 tablet (88 30 tablet 0 Active (SYNTHROID, mcg total) by 7 LEVOTHROID) 88 MCG mouth Every tablet morning on an empty stomach. azithromycin Take 250 mg by 0 Active (ZITHROMAX) 250 MG mouth daily Take tabletIndications: by mouth as bronchiectasis directed. . omeprazole Take 40 mg by 0 Active (PRILOSEC) 40 MG mouth daily. capsuleIndications: [...] 19 hr tablet 2 (two) times daily. melatonin 3 mg Tab Take by mouth. 0 Active tablet predniSONE Take 10 mg by 0 Active (DELTASONE) 10 MG mouth daily. tablet amLODIPine Take 10 mg by 0 02/17/20 Discontinued (NORVASC) 10 MG mouth daily. 18 tablet propranolol Take 20 mg by 0 02/17/20 Discontinued (INDERAL) 20 MG mouth 3 (three) 18 tablet times daily. predniSONE Take 30 mg by 0 02/17/20 Discontinued (DELTASONE) 20 MG mouth daily. [...] 30 days. 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 Physical deconditioning 03/25/2017 COPD exacerbation 03/24/2017 Bronchiectasis 10/24/2015 SOB (shortness of breath) 10/29/2014 Overview: CXR clear On Vanco/zosyn, azithro methylprednisone 40 mg IV q 6hr Cultures pending or negative thus far Pneumonia 10/12/2013 Bronchiectasis with acute exacerbation Essential tremor Hypertension Encounters Date Type Specialty Care Team Description 03/31/2018 Office Visit Geriatric Medicine Rita Bradshaw, Cognitive impairment (Primary Dx); Hearing loss, unspecified hearing loss type, unspecified laterality; Bronchiectasis without complication (HCC); Essential tremor 02/13/2018 Anesthesia Event Gastroenterology Nafisa Koch MD 02/13/2018 Surgery Gastroenterology FRANK Alfonso MD 02/10/2018 - Hospital Cardiology Abisai Woody Bronchiectasis with acute exacerbation ([facility]); 02/18/2018 Encounter MD ROSARIO EspinalT (supraventricular tachycardia) ([facility]); Gita Patel Cognitive decline; MD Megha Executive function deficit; Yuki Ogden, Acute encephalopathy; Acute kidney injury ([facility]); Pneumonia due to Pseudomonas species, unspecified laterality, unspecified part of lung ([facility]) 02/10/2018 Orders Only Internal Medicine Fernando Juárez MD 02/03/2018 Outside Orders Socrates Alfonso MD after 05/03/2017 Social History Tobacco Use Types Packs/Day Years Used Date Never Smoker Smokeless Tobacco: Never Used Alcohol Use Drinks/Week oz/Week Comments No Sex Assigned at Date Recorded Not on file Job Start Date Occupation Industry Not on file Not on file Not on file Travel History Travel Start Travel End No recent travel history available. Last Filed Vital Signs Vital Sign Reading Time Taken Blood Pressure 176/80 03/31/2018 1:06 PM CDT Pulse 66 03/31/2018 1:06 PM CDT Temperature 37.1 C (98.7 F) 03/31/2018 1:06 PM CDT Respiratory Rate 16 03/31/2018 1:06 PM CDT Oxygen Saturation 97% 03/31/2018 1:06 PM CDT Inhaled Oxygen Concentration 21% 02/17/2018 3:52 PM CDT Weight 64.8 kg (142 lb 12.8 oz) 03/31/2018 1:06 PM CDT Height 170.2 cm (5' 7") 02/13/2018 8:55 AM CDT Body Mass Index 22.37 03/31/2018 1:06 PM CDT Plan of Treatment Not on file Procedures Procedure Name Priority Date/Time Associated Diagnosis Comments RHYTHM STRIP - SCAN 02/19/2018 8:50 AM CDT XR CHEST 1 VIEW STAT 02/18/2018 11:43 Results for this PORTABLE/BEDSIDE AM CDT procedure are in the results section. POCT-GLUCOSE METER Routine 02/18/2018 11:41 Results for this AM CDT procedure are in the results section. POCT-GLUCOSE METER Routine 02/18/2018 7:47 Results for this AM CDT procedure are in the results section. CBC (HEMOGRAM ONLY) Routine 02/18/2018 4:42 Results for this AM CDT procedure are in the results section. BUN AND CREATININE Routine 02/18/2018 4:42 Results for this AM CDT procedure are in the results section. POCT-GLUCOSE METER Routine 02/17/2018 9:40 Results for this PM CDT procedure are in the results section. POCT-GLUCOSE METER Routine 02/17/2018 5:14 Results for this PM CDT procedure are in the results section. POCT-GLUCOSE METER Routine 02/17/2018 12:15 Results for this PM CDT procedure are in the results section. POCT-GLUCOSE METER Routine 02/17/2018 10:18 Results for this AM CDT procedure are in the results section. SPUTUM CULTURE + Routine 02/17/2018 9:58 Results for this GRAM STAIN AM CDT procedure are in the results section. POCT-GLUCOSE METER Routine 02/17/2018 8:10 Results for this AM CDT procedure are in the results section. BUN AND CREATININE Routine 02/17/2018 4:21 Results for this AM CDT procedure are in the results section. POCT-GLUCOSE METER Routine 02/16/2018 12:39 Results for this PM CDT procedure are in the results section. BASIC METABOLIC Routine 02/16/2018 6:56 Results for this PANEL (7) AM CDT procedure are in the results section. BUN AND CREATININE Routine 02/16/2018 6:56 Results for this AM CDT procedure are in the results section. CBC W/PLT COUNT & Routine 02/16/2018 4:54 Results for this AUTO DIFFERENTIAL AM CDT procedure are in the results section. CBC W/PLT COUNT & Routine 02/16/2018 4:54 Results for this AUTO DIFFERENTIAL AM CDT procedure are in the results section. POCT-GLUCOSE METER Routine 02/16/2018 12:12 Results for this AM CDT procedure are in the results section. POCT-GLUCOSE METER Routine 02/15/2018 5:23 Results for this PM CDT procedure are in the results section. POCT-GLUCOSE METER Routine 02/15/2018 11:21 Results for this AM CDT procedure are in the results section. TSH/FREE T4 IF Routine 02/15/2018 2:52 Results for this INDICATED AM CDT procedure are in the results section. VANCOMYCIN LEVEL, Timed 02/15/2018 2:52 Results for this TROUGH AM CDT procedure are in the results section. (CELLAVISION MANUAL Routine 02/15/2018 2:40 Results for this DIFF) AM CDT procedure are in the results section. CBC W/PLT COUNT & Routine 02/15/2018 2:40 Results for this AUTO DIFFERENTIAL AM CDT procedure are in the results section. CBC W/PLT COUNT & Routine 02/15/2018 2:40 Results for this AUTO DIFFERENTIAL AM CDT procedure are in the results section. BUN AND CREATININE Routine 02/15/2018 2:40 Results for this AM CDT procedure are in the results section. BASIC METABOLIC ESME 02/15/2018 2:40 Results for this PANEL (7) AM CDT procedure are in the results section. POCT-GLUCOSE METER Routine 02/14/2018 9:06 Results for this PM CDT procedure are in the results section. POCT-GLUCOSE METER Routine 02/14/2018 5:14 Results for this PM CDT procedure are in the results section. BLOOD GAS, VENOUS Routine 02/14/2018 1:36 Results for this PM CDT procedure are in the results section. AMMONIA Routine 02/14/2018 1:35 Results for this PM CDT procedure are in the results section. (CELLAVISION MANUAL Routine 02/14/2018 1:34 Results for this DIFF) PM CDT procedure are in the results section. CBC W/PLT COUNT & Routine 02/14/2018 1:34 Results for this AUTO DIFFERENTIAL PM CDT procedure are in the results section. CBC W/PLT COUNT & Routine 02/14/2018 1:34 Results for this AUTO DIFFERENTIAL PM CDT procedure are in the results section. BASIC METABOLIC Routine 02/14/2018 1:34 Results for this PANEL (7) PM CDT procedure are in the results section. POCT-GLUCOSE METER Routine 02/14/2018 1:21 Results for this PM CDT procedure are in the results section. POCT-GLUCOSE METER Routine 02/14/2018 8:43 Results for this AM CDT procedure are in the results section. POCT-GLUCOSE METER Routine 02/13/2018 9:01 Results for this PM CDT procedure are in the results section. POCT-GLUCOSE METER Routine 02/13/2018 5:04 Results for this PM CDT procedure are in the results section. MAGNESIUM Routine 02/13/2018 3:47 Results for this PM CDT procedure are in the results section. BASIC METABOLIC Routine 02/13/2018 3:47 Results for this PANEL (7) PM CDT procedure are in the results section. POCT-GLUCOSE METER Routine 02/13/2018 12:34 Results for this PM CDT procedure are in the results section. CYTOLOGY REQUEST Routine 02/13/2018 9:46 Results for this AM CDT procedure are in the results section. CYTOLOGY AP Routine 02/13/2018 9:46 Results for this AM CDT procedure are in the results section. ECG 12-LEAD Routine 02/13/2018 9:44 Results for this AM CDT procedure are in the results section. FUNGUS CULTURE + STAT 02/13/2018 9:44 Results for this SMEAR AM CDT procedure are in the results section. BRONCHIAL CULTURE + STAT 02/13/2018 9:44 Results for this GRAM STAIN AM CDT procedure are in the results section. AFB CULTURE + SMEAR STAT 02/13/2018 9:44 Results for this AM CDT procedure are in the results section. SPIN/CONCENTRATION Routine 02/13/2018 9:44 Results for this CHARGE AM CDT procedure are in the results section. BRONCHOSCOPY 02/13/2018 9:00 Bronchiectasis AM CDT without complication (HCC) Case Notes OK'D BY RICKY POCT-GLUCOSE METER Routine 02/12/2018 10:14 PM CDT VANCOMYCIN LEVEL, TROUGH Timed 02/12/2018 8:49 PM CDT POCT-GLUCOSE METER Routine 02/12/2018 6:29 PM CDT 2D ECHO W/ DOPPLER Routine 02/12/2018 3:00 PM CDT Results for this (CW/PW/COLOR) procedure are in the results section. POCT-GLUCOSE METER Routine 02/12/2018 12:17 PM CDT POCT-GLUCOSE METER Routine 02/12/2018 7:42 AM CDT CBC W/PLT COUNT & AUTO Routine 02/12/2018 4:52 AM CDT Results for this DIFFERENTIAL procedure are in the results section. CBC W/PLT COUNT & AUTO Routine 02/12/2018 4:52 AM CDT Results for this DIFFERENTIAL procedure are in the results section. MAGNESIUM Routine 02/12/2018 4:52 AM CDT HEPATIC FUNCTION PANEL Routine 02/12/2018 4:52 AM CDT BASIC METABOLIC PANEL (7) Routine 02/12/2018 4:52 AM CDT POCT-GLUCOSE METER Routine 02/11/2018 9:00 PM CDT POCT-GLUCOSE METER Routine 02/11/2018 5:20 PM CDT SPUTUM CULTURE + GRAM STAIN Routine 02/11/2018 1:28 PM CDT POCT-GLUCOSE METER Routine 02/11/2018 11:48 AM CDT POCT-GLUCOSE METER Routine 02/11/2018 7:36 AM CDT CBC W/PLT COUNT & AUTO Routine 02/11/2018 4:49 AM CDT Results for this DIFFERENTIAL procedure are in the results section. CBC W/PLT COUNT & AUTO Routine 02/11/2018 4:49 AM CDT Results for this DIFFERENTIAL procedure are in the results section. MAGNESIUM Routine 02/11/2018 4:49 AM CDT HEPATIC FUNCTION PANEL Routine 02/11/2018 4:49 AM CDT BASIC METABOLIC PANEL (7) Routine 02/11/2018 4:49 AM CDT CBC W/PLT COUNT & AUTO Routine 02/10/2018 10:01 PM CDT Results for this DIFFERENTIAL procedure are in the results section. B-TYPE NATRIURETIC FACTOR Routine 02/10/2018 10:01 PM CDT Results for this (BNP) procedure are in the results section. CBC W/PLT COUNT & AUTO Routine 02/10/2018 10:01 PM CDT Results for this DIFFERENTIAL procedure are in the results section. PT/APTT Routine 02/10/2018 10:01 PM CDT MAGNESIUM Routine 02/10/2018 10:01 PM CDT HEPATIC FUNCTION PANEL Routine 02/10/2018 10:01 PM CDT BASIC METABOLIC PANEL (7) Routine 02/10/2018 10:01 PM CDT BLOOD CULTURE Routine 02/10/2018 10:01 PM CDT BLOOD CULTURE Routine 02/10/2018 9:02 PM CDT XR CHEST 2 VIEWS ESME 02/10/2018 6:22 PM CDT POCT-GLUCOSE METER Routine 02/10/2018 5:33 PM CDT after 05/03/2017 Results RHYTHM STRIP - SCAN (02/19/2018 8:50 AM CDT) Narrative Performed At XR chest 1 view portable / bedside (02/18/2018 11:43 AM CDT) Narrative Performed At FINAL REPORT [facility] Chest one view INDICATION: Post PICC line [...] MD Report Verified Date/Time:02/18/2018 12:37:39 Reading Location: [facility] Radiology Reading Room Procedure Note Interface, External [...] Report Verified Date/Time: 02/18/2018 12:37:39 Reading Location: [facility] Radiology Reading Room Performing Organization Address City/[facility] Phone Number GE RIS POC-Glucose meter (02/18/2018 11:41 AM CDT)Only the most recent of27 resultswithin the time period is included. POC-Glucose Meter 114 (H)Comment: TESTED AT 70 - 110 mg/dL [place] [id number] Specimen Blood Performing Organization Address [facility] [place] [address] [phone] [facility] BUN and Creatinine (02/18/2018 4:42 AM CDT)Only the most recent of4 resultswithin the time period is included. BUN 29 (H) 7 - 21 mg/dL [facility] Creatinine 0.91 0.57 - 1.25 mg/dL [facility] EGFR 59Comment: ESTIMATED GFR IS mL/min/1.73 sq m [facility] NOT ACCURATE CREATININE [facility] CLEARANCE IN PREDICTING GLOMERULAR FILTRATION RATE. ESTIMATED GFR IS NOT APPLICABLE FOR DIALYSIS PATIENTS. Specimen Blood Performing Organization Address [facility] [place] [address] [facility] CBC (Hemogram only) (02/18/2018 4:42 AM CDT) WBC 20.4 (H) 3.5 - 10.5 K/L [facility] RBC 4.12 3.93 - 5.22 M/L [facility] Hemoglobin 11.8 11.2 - 15.7 GM/DL [facility] Hematocrit 39.1 34.1 - 44.9 % [facility] MCV 94.9 (H) 79.4 - 94.8 fL [facility] MCH 28.6 25.6 - 32.2 pg [facility] MCHC 30.2 (L) 32.2 - 35.5 GM/DL [facility] RDW 15.4 (H) 11.7 - 14.4 % [facility] Platelets 236 150 - 450 K/CU MM [facility] MPV 9.7 9.4 - 12.3 fL [facility] nRBC 0 0 - 0 /100 WBC [facility] Specimen Blood Performing Organization Address City/[facility] Cent[facility]ode Phone Number [address] [address] [facility] Sputum Culture + Gram Stain (02/17/2018 9:58 AM CDT)Only the most recent of2 resultswithin the time period is included. Result PSEUDOMONAS AERUGINOSA (A) [facility] Gram Stain Result 4+ White blood cells seen [facility] Gram Stain Result 0-5 epithelial cells [facility] Gram Stain Result 4+ gram variable rods [facility] Gram Stain Result <1+ gram positive cocci in [facility] Specimen Sputum - Expectorated Narrative Performed At 2+ Normal respiratory greyson present [facility] Organism Antibiotic Method Susceptibility Pseudomonas aeruginosa Amikacin <=8: Susceptible Pseudomonas aeruginosa Aztreonam <=4: Susceptible Pseudomonas aeruginosa Cefepime 16: Resistant Pseudomonas aeruginosa Ceftazidime 4: Susceptible Pseudomonas aeruginosa Ciprofloxacin >2: Resistant Pseudomonas aeruginosa Gentamicin <=2: Susceptible Pseudomonas aeruginosa Levofloxacin >8: Resistant Pseudomonas aeruginosa Piperacillin <=16: Susceptible Pseudomonas aeruginosa Piperacillin + Tazobactam <=8: Susceptible Pseudomonas aeruginosa Tobramycin <=2: Susceptible Performing Organization Address [facility] Cent[facility]ode Phone Number [address] [address] [facility] Basic Metabolic Panel (02/16/2018 6:56 AM CDT)Only the most recent of7 resultswithin the time period is included. Sodium 141 136 - 145 meq/L [facility] Potassium 3.9 3.5 - 5.1 meq/L [facility] Chloride 103 98 - 107 meq/L [facility] CO2 32 (H) 22 - 29 meq/L [facility] BUN 32 (H) 7 - 21 mg/dL [facility] Creatinine 0.87 0.57 - 1.25 mg/dL [facility] Glucose 70 70 - 105 mg/dL [facility] Calcium 9.1 8.4 - 10.2 mg/dL [facility] EGFR 63Comment: ESTIMATED GFR IS mL/min/1.73 sq m [facility] NOT ACCURATE CREATININE [facility] CLEARANCE IN PREDICTING GLOMERULAR FILTRATION RATE. ESTIMATED GFR IS NOT APPLICABLE FOR DIALYSIS PATIENTS. Specimen Blood - Arm, Left Performing Organization Address City/State/Zipcode Phone Number [facility] [address] [place] [address] CENTER CBC with platelet count + automated diff (02/16/2018 4:54 AM CDT)Only the most recent of6 resultswithin the time period is included. WBC 17.4 (H) 3.5 - 10.5 K/L [facility] RBC 4.38 3.93 - 5.22 M/L [facility] Hemoglobin 12.7 11.2 - 15.7 GM/DL [facility] Hematocrit 43.0 34.1 - 44.9 % [facility] MCV 98.2 (H) 79.4 - 94.8 fL [facility] MCH 29.0 25.6 - 32.2 pg [facility] MCHC 29.5 (L) 32.2 - 35.5 GM/DL [facility] RDW 15.9 (H) 11.7 - 14.4 % [facility] Platelets 175 150 - 450 K/CU MM [facility] MPV 11.0 9.4 - 12.3 fL [facility] nRBC 0 0 - 0 /100 WBC [facility] % Neutros 70 % [facility] % Lymphs 20 % [facility] % Monos 7 % [facility] % Eos 0 % [facility] % Baso 0 % [facility] # Neutros 12.08 (H) 1.56 - 6.13 K/L [facility] # Lymphs 3.43 1.18 - 3.74 K/L [facility] # Monos 1.25 (H) 0.24 - 0.36 K/L [facility] # Eos 0.02 (L) 0.04 - 0.36 K/L [facility] # Baso 0.01 0.01 - 0.08 K/L [facility] Immature 3 (H) 0 - 1 % [facility] Granulocytes[facility] Specimen Blood - Arm, Left Performing Organization Address City/[facility]/Zipcode Phone Number [address] [address] [phone] CENTER TSH/Free T4 If Indicated (02/15/2018 2:52 AM CDT) TSH 1.16 0.35 - 4.94 uIU/mL [facility] Specimen Blood Performing Organization Address City/[facility]/Zipcode Phone Number [address] [address] CENTER Vancomycin level, trough (02/15/2018 2:52 AM CDT)Only the most recent of2 resultswithin the time period is included. Vancomycin Tr 16.1 10.0 - 20.0 ug/mL [facility] Specimen Blood Performing Organization Address City/[facility] Cent[facility]ode Phone Number [facility] [address] [place] [address] [phone] CENTER Manual Differential (02/15/2018 2:40 AM CDT)Only the most recent of2 resultswithin the time period is included. % Neutros 75 % [facility] % Lymphs 16 % [facility] % Monos 8 % [facility] % Atypical Lymphs 1 (H) 0 - 0 % [facility] # Neutros 14.25 (H) 1.56 - 6.13 K/ul [facility] # Lymphs 3.04 1.18 - 3.74 K/ul [facility] # Monos 1.52 (H) 0.24 - 0.36 K/uL [facility] # Atypical Lymphs 0.19 (H) 0.00 - 0.00 K/uL [facility] Total Counted 100 [facility] nRBC (manual) 1 (H) 0 - 0 /100 WBC [facility] Platelet Morphology Normal [facility] Smudge Cells Present [facility] Anisocytosis 2+ moderate [facility] Microcytes 2+ moderate [facility] Elliptocytes 1+ few [facility] Tear Drop Cells 1+ few [facility] Platelet Conc Adequate [facility] Specimen Blood Narrative Performed At Received comment: [facility] User comments: Slide comments: Performing Organization Address City/[facility]/Zipcode Phone Number [address] [address] [facility] Blood gas, venous (02/14/2018 1:36 PM CDT) pH, Moise 7.37 7.32 - 7.42 [facility] pCO2, Moise 57 (H) 41 - 51 mmHg [facility] pO2, Moise 77 (H) 25 - 40 mmHg [facility] O2 Sat, Moise 94.6 (H) 40.0 - 70.0 % [facility] HCO3, Moise 32 (H) 21 - 29 mmol/L [facility] Base Excess, Moise 5.2 (H) -2.0 - 3.0 mmol/L [facility] Patient Temperature 37.0 C [facility] FIO2 21.0 % [facility] Specimen Blood Performing Organization Address [facility] Centercode Phone Number [address] [address] CENTER Ammonia (02/14/2018 1:35 PM CDT) Ammonia 23 18 - 72 mol/L [facility] Specimen Blood Performing Organization Address City/[facility] Centercode Phone Number [address] [address] CENTER Magnesium (02/13/2018 3:47 PM CDT)Only the most recent of4 resultswithin the time period is included. Magnesium 2.5Comment: Specimen slightly 1.6 - 2.6 mg/dL [facility] hemolyzed [facility] Specimen Blood Performing Organization Address [facility] Centercode Phone Number [address] [address] [phone] CENTER CYTOLOGY REQUEST (02/13/2018 9:46 AM CDT) Cytology See Separate Report [facility] Specimen Bronch Washing - Lung, Left Upper and Middle Lobes Performing Organization Address City/[facility]/Zipcode Phone Number [address] [address] [facility] Cytology (02/13/2018 9:46 AM CDT) Case Report Medical Cytology Report Case: [id number] [facility] Authorizing Provider:Socrates Alfonso MDCollected: 02/13/2018 0946 [facility] Ordering Location: [address] Received: 02/13/2018 1300 Service Pathologist: Audrey Orr Specimen:Lung, Left Upper and Middle Lobes, Routine cyto DIAGNOSIS LEFT UPPER AND MIDDLE LOBES LUNG BRONCH WASHING (CYTOSPINS): [facility] - NEGATIVE FOR MALIGNANCY [facility] PREDOMINANTLY ACUTE INFLAMMATION Signing Pathologist Direct Phone Line: [phone] CPT Code(s) 19748 [facility] CLINICAL DATA Bronchiectasis without [facility] complication [facility] SPECIMEN SOURCE LEFT UPPER AND MIDDLE LOBES [facility] LUNG BRONCH WASHING [facility] GROSS DESCRIPTION 22 mls in cytorich red; 4 cytospins [facility] Collected: [id number] [facility] Received: [id number] STATEMENT OF ADEQUACY Satisfactory [facility] Technical component was [facility] performed at [place], Department of [facility] Pathology, [address] [place] [id number], Professional component was [facility] performed at [place], Department of [facility] Pathology, [address] [place] [id number], Specimen Bronch Washing - Lung, Left Upper and Middle Lobes Narrative Performed At Performing Organization Address [facility]/Zipcode Phone Number [address] [address] [phone] [facility] ECG 12 lead (02/13/2018 9:44 AM CDT) Narrative Performed At Ventricular Rate 110 BPM GE MUSE Atrial Rate 110 BPM P-R Interval 88 ms QRS Duration 84 ms Q-T Interval 308 ms QTC Calculation(Bazett) 416 ms R Oxford -39 degrees T Oxford -24 degrees Sinus tachycardia with short OK Left axis deviation Nonspecific ST and T wave abnormality Could be WPW Confirmed by MD Ayon Roberto ([id number]) on 02/13/2018 1:22:33 PM Procedure Note Interface, External Ris In - 02/13/2018 1:22 PM CDT Ventricular Rate 110 BPM Atrial Rate 110 BPM P-R Interval 88 ms QRS Duration 84 ms Q-T Interval 308 ms QTC Calculation(Bazett) 416 ms R Oxford -39 degrees T Oxford -24 degrees Sinus tachycardia with short OK Left axis deviation Nonspecific ST and T wave abnormality Could be WPW Confirmed by MD Ayon Roberto ([id number]) on 02/13/2018 1:22:33 PM Performing Organization Address City/[facility] Cent[facility] Phone Number [employer] culture + smear (02/13/2018 9:44 AM CDT) Result No acid-fast bacilli isolated in [facility] 42 days CENTER AFB Smear No acid fast bacilli seen [facility] Specimen Bronch Washing - Lung, Left Upper and Middle Lobes Performing Organization Address City/[facility]/Zipcode Phone Number [place] [phone] [place] [address] CENTER Bronchial culture + gram stain (02/13/2018 9:44 AM CDT) Result 1+ Same organism has been isolated from cultures(s) of the same body site within 3 days. Repeat identification and susceptibility testing performed only after consultation with the clinical microbiology laboratory. (A) [facility] Comment: MEDICAL CENTER Refer to previous culture of Pseudomonas aeruginosa This is a corrected organism result. Previous result was Same organism has been isolated from culture(s) of the same body site within 3 days. Repeat identification performed only after consultation with the clinical microbiology laboratory. on 02/15/2018 at 1859 CDT Gram Stain Result 2+ WBCs [facility] Gram Stain Result No organisms seen [facility] Specimen Bronch Washing - Lung, Left Upper and Middle Lobes Narrative Performed At <1+ Normal respiratory greyson present [facility] Performing Organization Address [facility] Centercode Phone Number [address] [address] [facility] Fungus culture + smear (02/13/2018 9:44 AM CDT) Result PAULO ALBICANS (A) [facility] Result 2 out of 3 media Fusarium [facility] species (A) [facility] Fungus Smear No fungi seen [facility] Specimen Bronch Washing - Lung, Left Upper and Middle Lobes Performing Organization Address [facility]/Zipcode Phone Number [address] [address] [facility] SPIN/CONCENTRATION CHARGE (02/13/2018 9:44 AM CDT) Concentration charged Done [facility] Specimen Bronch Washing - Lung, Left Upper and Middle Lobes Performing Organization Address [facility] Centercowa Phone Number [address] [address] [facility] 2D Echo W/Doppler(CW/PW/Color) (02/12/2018 3:00 PM CDT) Ejection Fraction [facility] Narrative Performed At Transthoracic Echocardiography Report (TTE) [facility] Demographics Patient Name JUANITO GONZALES Date of Study 02/12/2018 YAMILA [id number] GenderFemale Visit Number [id number] Unknown [id number] Room Number [id number] Number Date of Birth1935Referring Physician Naty Villeda 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 Jesus rderline concentric LV hypertrophy. All of the LV se gments contract normally . Global LV systolic fu nction normal . Estimated LVEF by qualitative as sessment is normal (>60%) . Normal (cardiac index 2- 3 L/min/m2) cardiac output state at rest is no hilario. Grade 1 diastolic dysfunction (impaired re laxation and low-normal LA pressure). Left AtriumLA size is normal (16-34 ml/m2) . Right VentricleThe right ventricular chamber size and systolic fu nction are within normal limits. Right Atrium RA cavity size is normal . Aortic Valve AoV calcification primarily involves the non- co ronary cusp(s). Mitral Valve Mild MV leaflet thickening. Mi ld mitral annular calcification. Tricuspid ValveMild tricuspid regurgitation. Es timated peak systolic PA pressure is 35-40 mmHg . Pulmonic Valve Normal PV structure and function. AortaAortic root size (SInus of Valsalva diameter) is no rmal . Proximal ascending aorta size is normal [...] E-Wave: 0.51 m/sMV Peak A-Wave: 0.93 m/s E/A Ratio: 0.55 [...] Study 02/12/2018 YAMILA Gender Female Visit Number [id number] Race Unknown Room Number 2446 Number Date of 1935 Referring Physician Naty Villeda Age 82 year(s) Supervisor [employer] Macario Maldonado Genetics Teacher Karen Elizondo Interpreting Physician LILI Bender Procedure Type of Study [...] Velocity: 2.71 m/s TR Gradient: 29.29 mmHg Performing Organization Address City/State/Zipcode Phone Number [facility] Hepatic function panel (02/12/2018 4:52 AM CDT)Only the most recent of3 resultswithin the time period is included. Protein, Total 5.4 (L) 6.0 - 8.3 gm/dL [facility] Albumin 3.2 (L) 3.5 - 5.0 g/dL [facility] Total Bilirubin 0.4 0.2 - 1.2 mg/dL [facility] Bilirubin, Direct 0.2 0.1 - 0.5 mg/dL [facility] Alkaline Phosphatase 70 40 - 150 U/L [facility] AST 12 5 - 34 U/L [facility] ALT 13 6 - 55 U/L [facility] Specimen Blood - Arm, Right Performing Organization Address City/[facility] Centercode Phone Number [address] [address] [phone] CENTER PT/aPTT (02/10/2018 10:01 PM CDT) Protime 13.4 11.7 - 14.7 seconds [facility] INR 1.0 <=5.9 [facility] PTT 29.2 22.5 - 36.0 seconds [facility] Specimen Blood - Arm, Left Narrative Performed At [facility] RECOMMENDED COUMADIN/WARFARIN INR THERAPY RANGES STANDARD DOSE: 2.0 - 3.0 Includes: PROPHYLAXIS for venous thrombosis, systemic embolization; TREATMENT for venous thrombosis and/or pulmonary embolus. HIGH RISK: Target INR is 2.5-3.5 for patients with mechanical heart valves. Performing Organization Address City/[facility]/Zipcode Phone Number [address] [address] CENTER Blood culture #2 (02/10/2018 10:01 PM CDT)Only the most recent of2 resultswithin the time period is included. Result No growth in 5 days [facility] Specimen Blood - Arm, Left Performing Organization Address City/State/Zipcode Phone Number [facility] [address] [place] [address] [phone] CENTER B-type Natriuretic Factor (BNP) (02/10/2018 10:01 PM CDT) BNP 125 (H) 0 - 100 pg/mL [facility] Specimen Blood - Arm, Left Performing Organization Address [facility] Centercode Phone Number [facility] [address] [place] [address] CENTER XR chest 2 views (02/10/2018 6:22 PM CDT) Narrative Performed At FINAL REPORT [facility] Examination: Two view Chest X-ray. CLINICAL HISTORY: [...] MD Report Verified Date/Time:02/10/2018 20:38:56 Reading Location: [address] Reading Room Procedure Note Interface, External [...] Report Verified Date/Time: 02/10/2018 20:38:56 Reading Location: [address] Reading Room Performing Organization Address City/State/Zipcode Phone Number GE RIS after 05/03/2017 Insurance Payer Benefit Plan / Subscriber ID Type Phone Address Group [employer] - MEDICARE [employer] MEDICARE HMO xxxxxxxx [phone] [address] [place] [address] (Home) [place] [address] Advance Directives For more information, please contact:[address] [phone] Code Status Date Activated Date Inactivated Comments Full Code 02/10/2018 4:37 PM 02/18/2018 5:44 PM This code status was determined by: Patient Full Code 10/24/2015 5:35 PM 10/27/2015 5:32 PM This code status was determined by: Patient Full Code 10/29/2014 1:17 AM 11/04/2014 5:17 PM This code status was determined by: Patient Code ONE 10/12/2013 9:10 PM 10/19/2013 7:04 PM All possible means of support, including: cardiac massage, mechanical ventilation, and defibrillation will be used to support life.
--- OUTSIDE RECORDS SUMMARY | 2018-05-04 11:34 | XMS REPORT | Continuity of Care Document ---
:1935 Author Organization Interface Problems Problem Status Onset Classification Date Comments Source Date Reported M25.562 - Active [facility] PAIN IN LEFT 5 [facility] KNEE Medications Medication Details Route Status Patient Ordering Order Source Instructions Provider Date Allergies, Adverse Reactions, Alerts Substance Category Reaction Severity Reaction Status Date Comments Source type Reported Immunizations Immunization Date Given Site Status Last Updated Comments Source Results Order Results Value Reference Date Interpretation Comments Source Name Range Knee Knee LEFT KNEE 05/25 - OPID series 3 series - [facility]yer views DX views DX (3 Views) Read [...] Type Number For Provider Date Date Visit [facility] Outpt Diag [id number] Syl 05/25 05/26 [facility] Procedures Procedure Code Date Perfomer Comments Source
--- OUTSIDE RECORDS SUMMARY | 2018-05-04 11:35 | XMS REPORT ---
:1935 [facility] Address [address] [place] [address] Care Team Providers Name Role Phone TERESA LOVE Unavailable Unavailable NAYELI ASHTON Unavailable Unavailable Problems This patient has no known problems. Allergies, Adverse Reactions, Alerts This patient has no known allergies or adverse reactions. Medications This patient has no known medications. Results Test Description Test Time Test Comments Text Results Atomic Results Result Comments AFB CULTURE + SMEAR 2018-03-29 16:58:00 Test Item Value Reference Range Comments CULTURE (BEAKER) (test syhz=9304) No acid-fast bacilli isolated in 42 days AFB SMEAR (BEAKER) (test qppq=146) No acid fast bacilli seen FUNGUS CULTURE + [id number] 11:53:00 Test Item Value Reference Range Comments CULTURE (BEAKER) (test 2 out of 3 media Fusarium clsr=2913) species FUNGUS SMEAR (BEAKER) (test No fungi seen ycpr=1582) SPUTUM CULTURE + GRAM [id number] 10:14:00 Test Item Value Reference Range Comments CULTURE (BEAKER) (test PSEUDOMONAS 4+ Pseudomonas wext=6961) AERUGINOSA aeruginosa Amikacin (test code=1) Susceptible 0-16 [...] 4+ White blood cells (BEAKER) (test seen opxe=7453) GRAM STAIN RESULT 0-5 epithelial cells (BEAKER) (test hmcs=161879) GRAM STAIN RESULT 4+ gram variable rods (BEAKER) (test dtqk=786047) GRAM STAIN RESULT <1+ gram positive (BEAKER) (test cocci in pairs kebt=145959) 2+ Normal respiratory greyson presentRAD, CHEST, 1 VIEW, NON [id number] 12:37: 00Reason for exam:->post picc lineShould this [...] stable.The bones appear unchanged. Signed: Valeriy Pollack Verified Date/Time: 02/18/2018 12:37:39 Reading Location: [facility] Radiology Reading Room POCT-GLUCOSE [id number] 12: 10:00 Test Item Value Reference Range Comments POC-GLUCOSE METER (BEAKER) 114 mg/dL 70-[address] [facility] [address] [facility] (test sphs=6207) [facility] [address] POCT-GLUCOSE [id number] 07:55:00 Test Item Value Reference Range Comments POC-GLUCOSE METER (BEAKER) 125 mg/dL 70-[address] [facility] [address] [facility] (test uopb=7553) [facility] [address] BUN AND [id number] 05:28:00 Test Item Value Reference Range Comments BLOOD UREA NITROGEN 29 mg/dL 7-21 (BEAKER) (test abdv=386) CREATININE (BEAKER) (test 0.91 mg/dL 0.57-1.25 ubny=959) EGFR (BEAKER) (test 59 mL/min/1.73 sq m ESTIMATED GFR IS NOT hktz=0709) ACCURATE CREATININE CLEARANCE IN PREDICTING GLOMERULAR FILTRATION RATE. ESTIMATED GFR IS NOT APPLICABLE FOR DIALYSIS PATIENTS. CBC (HEMOGRAM ONLY)2018-02-18 05:03:00 Test Item Value Reference Range Comments WHITE BLOOD CELL COUNT (BEAKER) (test ekuv=946) 20.4 K/ L 3.5-10.5 RED BLOOD CELL COUNT (BEAKER) (test kyie=731) 4.12 M/ L 3.93-5.22 HEMOGLOBIN (BEAKER) (test xtjq=299) 11.8 GM/DL 11.2-15.7 HEMATOCRIT (BEAKER) (test xvvk=784) 39.1 % 34.1-44.9 MEAN CORPUSCULAR VOLUME (BEAKER) (test msby=691) 94.9 fL 79.4-94.8 MEAN CORPUSCULAR HEMOGLOBIN (BEAKER) (test 28.6 pg 25.6-32.2 tiom=288) MEAN CORPUSCULAR HEMOGLOBIN CONC (BEAKER) (test 30.2 GM/DL 32.2-35.5 rzsi=707) RED CELL DISTRIBUTION WIDTH (BEAKER) (test 15.4 % 11.7-14.4 mpeb=796) PLATELET COUNT (BEAKER) (test dqmp=733) 236 K/CU MM 150-450 MEAN PLATELET VOLUME (BEAKER) (test bsif=316) 9.7 fL 9.4-12.3 NUCLEATED RED BLOOD CELLS (BEAKER) (test 0 /100 WBC 0-0 piek=015) POCT-GLUCOSE [id number] 21:44:00 Test Item Value Reference Range Comments POC-GLUCOSE METER (BEAKER) 299 mg/dL 70-110 TESTED AT [address] (test hjkw=5459) [facility] [address] POCT-GLUCOSE [id number] 17:21:00 Test Item Value Reference Range Comments POC-GLUCOSE METER (BEAKER) 164 mg/dL 70-110 TESTED AT [address] (test btem=4716) [facility] [address] POCT-GLUCOSE [id number] 12:21:00 Test Item Value Reference Range Comments POC-GLUCOSE METER (BEAKER) 142 mg/dL 70-110 TESTED AT [address] (test bnbb=9131) [place] [id number] POCT-GLUCOSE [id number] 10:24:00 Test Item Value Reference Range Comments POC-GLUCOSE METER (BEAKER) 91 mg/dL 70-110 TESTED AT [address] (test scuz=4248) [place] [id number] POCT-GLUCOSE [id number] 08:12:00 Test Item Value Reference Range Comments POC-GLUCOSE METER (BEAKER) 68 mg/dL 70-110 Will Repeat Test/TESTED AT (test doul=3160) [place] [id number] BUN AND [id number] 05:44:00 Test Item Value Reference Range Comments BLOOD UREA NITROGEN 30 mg/dL 7-21 (BEAKER) (test hijs=194) CREATININE (BEAKER) (test 0.79 mg/dL 0.57-1.25 Specimen slightly puwl=545) hemolyzed EGFR (BEAKER) (test 70 mL/min/1.73 sq m ESTIMATED GFR IS NOT voqw=0180) ACCURATE CREATININE CLEARANCE IN PREDICTING GLOMERULAR FILTRATION RATE. ESTIMATED GFR IS NOT APPLICABLE FOR DIALYSIS PATIENTS. BRONCHIAL CULTURE + GRAM [id number] 16:31:00 Test Item Value Reference Range Comments CULTURE (BEAKER) (test 1+ Same organism has been jgbu=8953) isolated from cultures(s) of the same body [...] GRAM STAIN RESULT 2+ WBCs (BEAKER) (test oxer=9631) GRAM STAIN RESULT No organisms seen (BEAKER) (test bbfq=648493) GRAM STAIN RESULT No organisms seen (BEAKER) (test pgjk=873028) <1+ Normal respiratory greyson presentPOCT-GLUCOSE [id number] 12:42:00 Test Item Value Reference Range Comments POC-GLUCOSE METER (BEAKER) 108 mg/dL 70-110 TESTED AT [address] (test sach=3625) [facility] [address] [id number] 11:38:00Medical Cytology Report Case: [id number] Authorizing Provider: Socrates Alfonso MD Collected: 02/13/2018 0946 Ordering Location: [address] Received: 02/13/2018 1300 Service Pathologist: Audrey Orr Specimen: Lung, Left Upper and Middle Lobes, Routine cyto LEFT UPPER AND MIDDLE LOBES LUNG BRONCH WASHING (CYTOSPINS): - NEGATIVE FOR MALIGNANCY PREDOMINANTLY ACUTE INFLAMMATION Signing Pathologist Direct Phone Line: [phone] signed by Audrey Orr on 02/16/2018 at 11:38 [id number] without complicationLEFT UPPER AND MIDDLE LOBES LUNG BRONCH WASHING 22 mls in cytorich red; 4 cytospinsCollected: [id number]: [id number] [facility], Department of Pathology, [address] [place] [address], [id number], [facility] of [facility], [address] [place] [address], STM AND [id number] 07:21:00 Test Item Value Reference Range Comments BLOOD UREA NITROGEN 32 mg/dL 7-21 (BEAKER) (test nyzi=646) CREATININE (BEAKER) (test 0.87 mg/dL 0.57-1.25 tlps=584) EGFR (BEAKER) (test 63 mL/min/1.73 sq m ESTIMATED GFR IS NOT gcrc=7335) ACCURATE CREATININE CLEARANCE IN PREDICTING GLOMERULAR FILTRATION RATE. ESTIMATED GFR IS NOT APPLICABLE FOR DIALYSIS PATIENTS. BASIC METABOLIC [id number] 07:21:00 Test Item Value Reference Range Comments SODIUM (BEAKER) (test 141 meq/L 136-145 nvba=543) POTASSIUM (BEAKER) (test 3.9 meq/L 3.5-5.1 cqwt=854) CHLORIDE (BEAKER) (test 103 meq/L 98-107 hoks=860) CO2 (BEAKER) (test 32 meq/L 22-29 ejdp=584) BLOOD UREA NITROGEN 32 mg/dL 7-21 (BEAKER) (test hcnp=947) CREATININE (BEAKER) (test 0.87 mg/dL 0.57-1.25 ghyp=179) GLUCOSE RANDOM (BEAKER) 70 mg/dL 70-105 (test tfwt=615) CALCIUM (BEAKER) (test 9.1 mg/dL 8.4-10.2 aeqd=701) EGFR (BEAKER) (test 63 mL/min/1.73 sq m ESTIMATED GFR IS NOT tsxa=6368) ACCURATE CREATININE CLEARANCE IN PREDICTING GLOMERULAR FILTRATION RATE. ESTIMATED GFR IS NOT APPLICABLE FOR DIALYSIS PATIENTS. CBC W/PLT COUNT & AUTO [id number] 05:46:00 Test Item Value Reference Range Comments WHITE BLOOD CELL COUNT (BEAKER) (test udyg=296) 17.4 K/ L 3.5-10.5 RED BLOOD CELL COUNT (BEAKER) (test ayzy=798) 4.38 M/ L 3.93-5.22 HEMOGLOBIN (BEAKER) (test uszi=471) 12.7 GM/DL 11.2-15.7 HEMATOCRIT (BEAKER) (test mkfl=656) 43.0 % 34.1-44.9 MEAN CORPUSCULAR VOLUME (BEAKER) (test gzen=730) 98.2 fL 79.4-94.8 MEAN CORPUSCULAR HEMOGLOBIN (BEAKER) (test 29.0 pg 25.6-32.2 bnmi=587) MEAN CORPUSCULAR HEMOGLOBIN CONC (BEAKER) (test 29.5 GM/DL 32.2-35.5 znhk=771) RED CELL DISTRIBUTION WIDTH (BEAKER) (test 15.9 % 11.7-14.4 eqjh=306) PLATELET COUNT (BEAKER) (test cstq=057) 175 K/CU MM 150-450 MEAN PLATELET VOLUME (BEAKER) (test kcij=208) 11.0 fL 9.4-12.3 NUCLEATED RED BLOOD CELLS (BEAKER) (test 0 /100 WBC 0-0 woye=404) NEUTROPHILS RELATIVE PERCENT (BEAKER) (test 70 % tear=650) LYMPHOCYTES RELATIVE PERCENT (BEAKER) (test 20 % nnkg=930) MONOCYTES RELATIVE PERCENT (BEAKER) (test 7 % ggws=920) EOSINOPHILS RELATIVE PERCENT (BEAKER) (test 0 % uwij=900) BASOPHILS RELATIVE PERCENT (BEAKER) (test 0 % xhjj=964) NEUTROPHILS ABSOLUTE COUNT (BEAKER) (test 12.08 K/ L 1.56-6.13 kilq=087) LYMPHOCYTES ABSOLUTE COUNT (BEAKER) (test 3.43 K/ L 1.18-3.74 kbkd=710) MONOCYTES ABSOLUTE COUNT (BEAKER) (test 1.25 K/ L 0.24-0.36 ecye=352) EOSINOPHILS ABSOLUTE COUNT (BEAKER) (test 0.02 K/ L 0.04-0.36 quat=682) BASOPHILS ABSOLUTE COUNT (BEAKER) (test 0.01 K/ L 0.01-0.08 ylfq=014) IMMATURE GRANULOCYTES-RELATIVE PERCENT (BEAKER) 3 % 0-1 (test vskq=2052) BLOOD [id number] 04:41:00 Test Item Value Reference Range Comments CULTURE (BEAKER) (test mbot=6364) No growth in 5 days BLOOD [id number] 04:41:00 Test Item Value Reference Range Comments CULTURE (BEAKER) (test unww=6673) No growth in 5 days POCT-GLUCOSE [id number] 00:13:00 Test Item Value Reference Range Comments POC-GLUCOSE METER (BEAKER) 132 mg/dL 70-110 TESTED AT [address] (test jvkp=4012) [place] [address] POCT-GLUCOSE [id number] 17:35:00 Test Item Value Reference Range Comments POC-GLUCOSE METER (BEAKER) 157 mg/dL 70-110 TESTED AT [address] (test pojt=0203) [place] [address] SPUTUM CULTURE + GRAM [id number] 13:58:00 Test Item Value Reference Range Comments CULTURE (BEAKER) (test See comment 2+ Pseudomonas bdtw=5519) aeruginosa CULTURE (BEAKER) (test PSEUDOMONAS <1+ Streptococcus ewxi=9630) AERUGINOSA group F Amikacin (test code=1) Susceptible [...] GRAM STAIN RESULT 3+ WBCs (BEAKER) (test cjzz=0181) GRAM STAIN RESULT 0-5 epithelial cells (BEAKER) (test nkes=626338) GRAM STAIN RESULT 1+ gram positive (BEAKER) (test cocci in pairs and nxnp=349930) clusters 3+ Normal respiratory greyson presentPOCT-GLUCOSE [id number] 11:35:00 Test Item Value Reference Range Comments POC-GLUCOSE METER (BEAKER) 98 mg/dL 70-[address] [facility] [address] [facility] (test yhmr=2026) [facility] [address] TSH/FREE T4 IF [id number] 03:37:00 Test Item Value Reference Range Comments THYROID STIMULATING HORMONE (BEAKER) (test 1.16 uIU/mL 0.35-4.94 qnji=989) CBC W/PLT COUNT & AUTO [id number] 03:28:00 Test Item Value Reference Range Comments WHITE BLOOD CELL COUNT (BEAKER) (test wawr=372) 19.0 K/ L 3.5-10.5 RED BLOOD CELL COUNT (BEAKER) (test coqu=077) 4.13 M/ L 3.93-5.22 HEMOGLOBIN (BEAKER) (test cpau=846) 11.8 GM/DL 11.2-15.7 HEMATOCRIT (BEAKER) (test lnao=169) 39.3 % 34.1-44.9 MEAN CORPUSCULAR VOLUME (BEAKER) (test camn=746) 95.2 fL 79.4-94.8 MEAN CORPUSCULAR HEMOGLOBIN (BEAKER) (test 28.6 pg 25.6-32.2 vyom=390) MEAN CORPUSCULAR HEMOGLOBIN CONC (BEAKER) (test 30.0 GM/DL 32.2-35.5 smog=588) RED CELL DISTRIBUTION WIDTH (BEAKER) (test 15.1 % 11.7-14.4 zqfs=626) PLATELET COUNT (BEAKER) (test byjp=654) 246 K/CU MM 150-450 MEAN PLATELET VOLUME (BEAKER) (test gdhh=801) 9.4 fL 9.4-12.3 NUCLEATED RED BLOOD CELLS (BEAKER) (test 0 /100 WBC 0-0 wine=096) (CELLAVISION MANUAL DIFF)2018-02-15 03:28:00 Test Item Value Reference Range Comments NEUTROPHILS - REL (CELLAVISION)(BEAKER) (test 75 % lhan=6780) LYMPHOCYTES - REL (CELLAVISION)(BEAKER) (test 16 % eyjq=6106) MONOCYTES - REL (CELLAVISION)(BEAKER) (test 8 % yren=4897) ATYPICAL LYMPHOCYTES - REL (CELLAVISION)(BEAKER) 1 % 0-0 (test ybpu=4493) NEUTROPHILS - ABS (CELLAVISION)(BEAKER) (test 14.25 K/ul 1.56-6.13 zfli=6263) LYMPHOCYTES - ABS (CELLAVISION)(BEAKER) (test 3.04 K/ul 1.18-3.74 ugnw=4136) MONOCYTES - ABS (CELLAVISION)(BEAKER) (test 1.52 K/uL 0.24-0.36 bukq=7019) ATYPICAL LYMPHOCYTES - ABS (CELLAVISION)(BEAKER) 0.19 K/uL 0.00-0.00 (test sssf=7940) TOTAL COUNTED (BEAKER) (test edvi=9155) 100 MANUAL NRBC PER 100 CELLS (BEAKER) (test 1 /100 WBC 0-0 maqk=0476) PLT MORPHOLOGY (BEAKER) (test dbti=831) Normal SMUDGE CELLS (BEAKER) (test uvfw=0459) Present ANISOCYTOSIS (BEAKER) (test fkcy=238) 2+ moderate MICROCYTES (BEAKER) (test hvpz=744) 2+ moderate ELLIPTOCYTES (BEAKER) (test llpb=437) 1+ few TEAR DROP CELLS (BEAKER) (test ipui=714) 1+ few PLATELET CONCENTRATION (CELLAVISION)(BEAKER) Adequate (test ltgu=9537) Received comment: User comments: Slide comments:VANCOMYCIN LEVEL, [id number] 03:16:00 Test Item Value Reference Range Comments VANCOMYCIN TROUGH (BEAKER) (test sdsx=706) 16.1 ug/mL 10.0-20.0 BUN AND [id number] 03:16:00 Test Item Value Reference Range Comments BLOOD UREA NITROGEN 41 mg/dL 7-21 (BEAKER) (test sefu=156) CREATININE (BEAKER) (test 0.97 mg/dL 0.57-1.25 zbco=102) EGFR (BEAKER) (test 55 mL/min/1.73 sq m ESTIMATED GFR IS NOT ftog=3495) ACCURATE CREATININE CLEARANCE IN PREDICTING GLOMERULAR FILTRATION RATE. ESTIMATED GFR IS NOT APPLICABLE FOR DIALYSIS PATIENTS. BASIC METABOLIC [id number] 03:16:00 Test Item Value Reference Range Comments SODIUM (BEAKER) (test 144 meq/L 136-145 tnct=534) POTASSIUM (BEAKER) (test 3.8 meq/L 3.5-5.1 biwf=725) CHLORIDE (BEAKER) (test 105 meq/L 98-107 nsmi=067) CO2 (BEAKER) (test 30 meq/L 22-29 aaxj=996) BLOOD UREA NITROGEN 41 mg/dL 7-21 (BEAKER) (test rtws=174) CREATININE (BEAKER) (test 0.97 mg/dL 0.57-1.25 vnvg=178) GLUCOSE RANDOM (BEAKER) 87 mg/dL 70-105 (test pzwb=866) CALCIUM (BEAKER) (test 9.3 mg/dL 8.4-10.2 fute=976) EGFR (BEAKER) (test 55 mL/min/1.73 sq m ESTIMATED GFR IS NOT mrlt=8828) ACCURATE CREATININE CLEARANCE IN PREDICTING GLOMERULAR FILTRATION RATE. ESTIMATED GFR IS NOT APPLICABLE FOR DIALYSIS PATIENTS. POCT-GLUCOSE [id number] 21:24:00 Test Item Value Reference Range Comments POC-GLUCOSE METER (BEAKER) 286 mg/dL 70-[address] [facility] [address] [facility] (test jupj=5967) [facility] [address] SPIN/CONCENTRATION [id number] 19:00:00 Test Item Value Reference Range Comments CONCENTRATION CHARGED (BEAKER) (test eatv=0673) Done POCT-GLUCOSE [id number] 17:16:00 Test Item Value Reference Range Comments POC-GLUCOSE METER (BEAKER) 144 mg/dL 70-[address] [facility] [address] (test wpix=6960) [place] [address] CBC W/PLT COUNT & AUTO [id number] 15:16:00 Test Item Value Reference Range Comments WHITE BLOOD CELL COUNT (BEAKER) (test kazb=820) 23.1 K/ L 3.5-10.5 RED BLOOD CELL COUNT (BEAKER) (test cjpy=322) 4.43 M/ L 3.93-5.22 HEMOGLOBIN (BEAKER) (test dvnn=794) 12.7 GM/DL 11.2-15.7 HEMATOCRIT (BEAKER) (test ugfe=201) 41.8 % 34.1-44.9 MEAN CORPUSCULAR VOLUME (BEAKER) (test cybc=574) 94.4 fL 79.4-94.8 MEAN CORPUSCULAR HEMOGLOBIN (BEAKER) (test 28.7 pg 25.6-32.2 swob=423) MEAN CORPUSCULAR HEMOGLOBIN CONC (BEAKER) (test 30.4 GM/DL 32.2-35.5 zftw=639) RED CELL DISTRIBUTION WIDTH (BEAKER) (test 15.1 % 11.7-14.4 fudp=906) PLATELET COUNT (BEAKER) (test ygqq=375) 333 K/CU MM 150-450 MEAN PLATELET VOLUME (BEAKER) (test uyfk=441) 9.5 fL 9.4-12.3 NUCLEATED RED BLOOD CELLS (BEAKER) (test 0 /100 WBC 0-0 dctx=055) (CELLAVISION MANUAL DIFF)2018-02-14 15:16:00 Test Item Value Reference Range Comments NEUTROPHILS - REL (CELLAVISION)(BEAKER) (test 91 % pcya=7614) LYMPHOCYTES - REL (CELLAVISION)(BEAKER) (test 6 % qvqy=3398) MONOCYTES - REL (CELLAVISION)(BEAKER) (test 1 % alte=2385) ATYPICAL LYMPHOCYTES - REL (CELLAVISION)(BEAKER) 2 % 0-0 (test jcnl=7820) NEUTROPHILS - ABS (CELLAVISION)(BEAKER) (test 21.02 K/ul 1.56-6.13 tmmh=4612) LYMPHOCYTES - ABS (CELLAVISION)(BEAKER) (test 1.39 K/ul 1.18-3.74 axkh=6851) MONOCYTES - ABS (CELLAVISION)(BEAKER) (test 0.23 K/uL 0.24-0.36 qxki=2207) ATYPICAL LYMPHOCYTES - ABS (CELLAVISION)(BEAKER) 0.46 K/uL 0.00-0.00 (test kqpz=3363) TOTAL COUNTED (BEAKER) (test nvuv=1253) 100 RBC MORPHOLOGY (BEAKER) (test qfzm=214) Normal WBC MORPHOLOGY (BEAKER) (test rgio=935) Normal PLT MORPHOLOGY (BEAKER) (test mybc=530) Normal PLATELET CONCENTRATION (CELLAVISION)(BEAKER) Adequate (test pqhm=4315) Received comment: User comments: Slide comments:BASIC METABOLIC [id number] 14:20:00 Test Item Value Reference Range Comments SODIUM (BEAKER) (test 138 meq/L 136-145 rkcy=687) POTASSIUM (BEAKER) (test 3.3 meq/L 3.5-5.1 esjn=898) CHLORIDE (BEAKER) (test 100 meq/L 98-107 lyoe=920) CO2 (BEAKER) (test 26 meq/L 22-29 dndo=774) BLOOD UREA NITROGEN 39 mg/dL 7-21 (BEAKER) (test kvbm=311) CREATININE (BEAKER) (test 1.16 mg/dL 0.57-1.25 exsy=799) GLUCOSE RANDOM (BEAKER) 237 mg/dL 70-105 (test qlhf=141) CALCIUM (BEAKER) (test 9.2 mg/dL 8.4-10.2 nubr=940) EGFR (BEAKER) (test 45 mL/min/1.73 sq m ESTIMATED GFR IS NOT ulwg=8689) ACCURATE CREATININE CLEARANCE IN PREDICTING GLOMERULAR FILTRATION RATE. ESTIMATED GFR IS NOT APPLICABLE FOR DIALYSIS PATIENTS. [id number] 14:13:00 Test Item Value Reference Range Comments AMMONIA (BEAKER) (test vcre=225) 23 mol/L 18-72 BLOOD GAS, [id number] 14:02:00 Test Item Value Reference Range Comments PH VENOUS (BEAKER) (test wjke=206) 7.37 7.32-7.42 PCO2 VENOUS (BEAKER) (test oxhm=040) 57 mmHg 41-51 PO2 VENOUS (BEAKER) (test icha=335) 77 mmHg 25-40 O2 SATURATION VENOUS (BEAKER) (test yqtq=375) 94.6 % 40.0-70.0 HCO3 VENOUS (BEAKER) (test shad=955) 32 mmol/L 21-29 BASE EXCESS VENOUS (BEAKER) (test kzsa=223) 5.2 mmol/L -2.0-3.0 PATIENT TEMPERATURE (BEAKER) (test vhsc=7176) 37.0 C FIO2 (BEAKER) (test zxcs=4959) 21.0 % POCT-GLUCOSE [id number] 13:23:00 Test Item Value Reference Range Comments POC-GLUCOSE METER (BEAKER) 218 mg/dL 70-110 TESTED AT [address] (test vxmw=1186) [facility] [address] POCT-GLUCOSE [id number] 08:45:00 Test Item Value Reference Range Comments POC-GLUCOSE METER (BEAKER) 135 mg/dL 70-110 TESTED AT [address] (test entr=8294) [place] [id number] POCT-GLUCOSE [id number] 21:02:00 Test Item Value Reference Range Comments POC-GLUCOSE METER (BEAKER) 275 mg/dL 70-110 TESTED AT [address] (test yjqg=2550) [place] [id number] POCT-GLUCOSE [id number] 17:11:00 Test Item Value Reference Range Comments POC-GLUCOSE METER (BEAKER) 212 mg/dL 70-110 TESTED AT [address] (test nhtl=5137) [place] [id number] 16:29:00 Test Item Value Reference Range Comments MAGNESIUM (BEAKER) (test 2.5 mg/dL 1.6-2.6 Specimen slightly hemolyzed jclx=372) BASIC METABOLIC [id number] 16:29:00 Test Item Value Reference Range Comments SODIUM (BEAKER) (test 137 meq/L 136-145 buvg=827) POTASSIUM (BEAKER) (test 3.4 meq/L 3.5-5.1 Specimen slightly lbhg=486) hemolyzed CHLORIDE (BEAKER) (test 104 meq/L 98-107 pjzh=425) CO2 (BEAKER) (test 25 meq/L 22-29 ogrc=335) BLOOD UREA NITROGEN 33 mg/dL 7-21 (BEAKER) (test gfun=789) CREATININE (BEAKER) (test 0.99 mg/dL 0.57-1.25 Specimen slightly ijnp=243) hemolyzed GLUCOSE RANDOM (BEAKER) 175 mg/dL 70-105 (test itkg=088) CALCIUM (BEAKER) (test 8.9 mg/dL 8.4-10.2 ufiy=098) EGFR (BEAKER) (test 54 mL/min/1.73 sq m ESTIMATED GFR IS NOT ojaf=7669) ACCURATE CREATININE CLEARANCE IN PREDICTING GLOMERULAR FILTRATION RATE. ESTIMATED GFR IS NOT APPLICABLE FOR DIALYSIS PATIENTS. CYTOLOGY [id number] 15:00:00 Test Item Value Reference Range Comments CYTOLOGY RESULT POINTER (BEAKER) (test See Separate Report ilnv=1393) POCT-GLUCOSE [id number] 13:23:00 Test Item Value Reference Range Comments POC-GLUCOSE METER (BEAKER) 92 mg/dL 70-110 TESTED AT [address] (test vrxo=9484) [facility] [address] POCT-GLUCOSE [id number] 22:17:00 Test Item Value Reference Range Comments POC-GLUCOSE METER (BEAKER) 303 mg/dL 70-110 Will Repeat Test/TESTED AT (test pjfm=1416) [address] [address] VANCOMYCIN LEVEL, [id number] 21:43:00 Test Item Value Reference Range Comments VANCOMYCIN TROUGH (BEAKER) (test pbir=579) 7.7 ug/mL 10.0-20.0 POCT-GLUCOSE [id number] 18:32:00 Test Item Value Reference Range Comments POC-GLUCOSE METER (BEAKER) 149 mg/dL 70-110 TESTED AT [address] (test yzge=5314) [facility] [address] POCT-GLUCOSE [id number] 12:18:00 Test Item Value Reference Range Comments POC-GLUCOSE METER (BEAKER) 159 mg/dL 70-110 TESTED AT [address] (test gbau=6311) [facility] [address] POCT-GLUCOSE [id number] 07:45:00 Test Item Value Reference Range Comments POC-GLUCOSE METER (BEAKER) 144 mg/dL 70-[address] [facility] [address] [facility] (test ncmj=3378) [facility] [address] [id number] 06:38:00 Test Item Value Reference Range Comments MAGNESIUM (BEAKER) (test wdcv=670) 2.3 mg/dL 1.6-2.6 BASIC METABOLIC [id number] 06:38:00 Test Item Value Reference Range Comments SODIUM (BEAKER) (test 140 meq/L 136-145 njsq=714) POTASSIUM (BEAKER) (test 3.5 meq/L 3.5-5.1 saqw=629) CHLORIDE (BEAKER) (test 105 meq/L 98-107 bhdp=007) CO2 (BEAKER) (test 27 meq/L 22-29 tvpb=468) BLOOD UREA NITROGEN 29 mg/dL 7-21 (BEAKER) (test ujfj=088) CREATININE (BEAKER) (test 0.95 mg/dL 0.57-1.25 zpyu=807) GLUCOSE RANDOM (BEAKER) 147 mg/dL 70-105 (test evri=607) CALCIUM (BEAKER) (test 8.8 mg/dL 8.4-10.2 gicn=335) EGFR (BEAKER) (test 57 mL/min/1.73 sq m ESTIMATED GFR IS NOT avbv=1215) ACCURATE CREATININE CLEARANCE IN PREDICTING GLOMERULAR FILTRATION RATE. ESTIMATED GFR IS NOT APPLICABLE FOR DIALYSIS PATIENTS. HEPATIC FUNCTION [id number] 06:38:00 Test Item Value Reference Range Comments TOTAL PROTEIN (BEAKER) (test sxwg=291) 5.4 gm/dL 6.0-8.3 ALBUMIN (BEAKER) (test nhou=8085) 3.2 g/dL 3.5-5.0 BILIRUBIN TOTAL (BEAKER) (test ryrv=072) 0.4 mg/dL 0.2-1.2 BILIRUBIN DIRECT (BEAKER) (test jrhd=241) 0.2 mg/dL 0.1-0.5 ALKALINE PHOSPHATASE (BEAKER) (test abms=935) 70 U/L 40-150 AST (SGOT) (BEAKER) (test dwqf=821) 12 U/L 5-34 ALT (SGPT) (BEAKER) (test ovrp=683) 13 U/L 6-55 CBC W/PLT COUNT & AUTO [id number] 05:53:00 Test Item Value Reference Range Comments WHITE BLOOD CELL COUNT (BEAKER) (test agek=388) 15.2 K/ L 3.5-10.5 RED BLOOD CELL COUNT (BEAKER) (test yrka=792) 4.08 M/ L 3.93-5.22 HEMOGLOBIN (BEAKER) (test edyg=779) 11.8 GM/DL 11.2-15.7 HEMATOCRIT (BEAKER) (test dwll=599) 38.7 % 34.1-44.9 MEAN CORPUSCULAR VOLUME (BEAKER) (test alqr=439) 94.9 fL 79.4-94.8 MEAN CORPUSCULAR HEMOGLOBIN (BEAKER) (test 28.9 pg 25.6-32.2 blca=028) MEAN CORPUSCULAR HEMOGLOBIN CONC (BEAKER) (test 30.5 GM/DL 32.2-35.5 wion=361) RED CELL DISTRIBUTION WIDTH (BEAKER) (test 15.0 % 11.7-14.4 qorb=532) PLATELET COUNT (BEAKER) (test jzdx=462) 246 K/CU MM 150-450 MEAN PLATELET VOLUME (BEAKER) (test bdas=609) 9.6 fL 9.4-12.3 NUCLEATED RED BLOOD CELLS (BEAKER) (test 0 /100 WBC 0-0 pzaj=013) NEUTROPHILS RELATIVE PERCENT (BEAKER) (test 84 % utxd=904) LYMPHOCYTES RELATIVE PERCENT (BEAKER) (test 11 % mrvw=886) MONOCYTES RELATIVE PERCENT (BEAKER) (test 3 % btwu=890) EOSINOPHILS RELATIVE PERCENT (BEAKER) (test 0 % ratu=984) BASOPHILS RELATIVE PERCENT (BEAKER) (test 0 % psiw=116) NEUTROPHILS ABSOLUTE COUNT (BEAKER) (test 12.80 K/ L 1.56-6.13 wdpc=197) LYMPHOCYTES ABSOLUTE COUNT (BEAKER) (test 1.71 K/ L 1.18-3.74 xkdz=626) MONOCYTES ABSOLUTE COUNT (BEAKER) (test 0.38 K/ L 0.24-0.36 wkir=613) EOSINOPHILS ABSOLUTE COUNT (BEAKER) (test 0.00 K/ L 0.04-0.36 blib=326) BASOPHILS ABSOLUTE COUNT (BEAKER) (test 0.04 K/ L 0.01-0.08 duks=887) IMMATURE GRANULOCYTES-RELATIVE PERCENT (BEAKER) 2 % 0-1 (test sblv=3147) POCT-GLUCOSE [id number] 21:04:00 Test Item Value Reference Range Comments POC-GLUCOSE METER (BEAKER) 140 mg/dL 70-110 TESTED AT [address] (test epot=3016) [facility] [address] POCT-GLUCOSE [id number] 17:25:00 Test Item Value Reference Range Comments POC-GLUCOSE METER (BEAKER) 219 mg/dL 70-110 TESTED AT [address] (test psxk=1731) [facility] [address] POCT-GLUCOSE [id number] 12:17:00 Test Item Value Reference Range Comments POC-GLUCOSE METER (BEAKER) 147 mg/dL 70-110 TESTED AT [address] (test vwey=2319) [facility] [address] POCT-GLUCOSE [id number] 07:51:00 Test Item Value Reference Range Comments POC-GLUCOSE METER (BEAKER) 126 mg/dL 70-110 TESTED AT [address] (test zliv=1771) [facility] [address] [id number] 06:30:00 Test Item Value Reference Range Comments MAGNESIUM (BEAKER) (test rbsp=136) 2.3 mg/dL 1.6-2.6 BASIC METABOLIC [id number] 06:30:00 Test Item Value Reference Range Comments SODIUM (BEAKER) (test 140 meq/L 136-145 kdgf=730) POTASSIUM (BEAKER) (test 4.0 meq/L 3.5-5.1 gwfy=381) CHLORIDE (BEAKER) (test 107 meq/L 98-107 rldk=832) CO2 (BEAKER) (test 27 meq/L 22-29 mekd=709) BLOOD UREA NITROGEN 26 mg/dL 7-21 (BEAKER) (test ayhd=838) CREATININE (BEAKER) (test 0.90 mg/dL 0.57-1.25 ffog=295) GLUCOSE RANDOM (BEAKER) 122 mg/dL 70-105 (test akty=438) CALCIUM (BEAKER) (test 8.6 mg/dL 8.4-10.2 mccx=025) EGFR (BEAKER) (test 60 mL/min/1.73 sq m ESTIMATED GFR IS NOT dkty=1987) ACCURATE CREATININE CLEARANCE IN PREDICTING GLOMERULAR FILTRATION RATE. ESTIMATED GFR IS NOT APPLICABLE FOR DIALYSIS PATIENTS. HEPATIC FUNCTION [id number] 06:30:00 Test Item Value Reference Range Comments TOTAL PROTEIN (BEAKER) (test gjvf=238) 5.4 gm/dL 6.0-8.3 ALBUMIN (BEAKER) (test lexb=7304) 3.2 g/dL 3.5-5.0 BILIRUBIN TOTAL (BEAKER) (test ltwg=872) 0.5 mg/dL 0.2-1.2 BILIRUBIN DIRECT (BEAKER) (test qjob=299) 0.2 mg/dL 0.1-0.5 ALKALINE PHOSPHATASE (BEAKER) (test pqke=804) 72 U/L 40-150 AST (SGOT) (BEAKER) (test pntu=561) 11 U/L 5-34 ALT (SGPT) (BEAKER) (test tnnu=610) 13 U/L 6-55 CBC W/PLT COUNT & AUTO [id number] 05:39:00 Test Item Value Reference Range Comments WHITE BLOOD CELL COUNT (BEAKER) (test hvot=014) 12.7 K/ L 3.5-10.5 RED BLOOD CELL COUNT (BEAKER) (test jcbl=400) 3.89 M/ L 3.93-5.22 HEMOGLOBIN (BEAKER) (test yfou=927) 11.1 GM/DL 11.2-15.7 HEMATOCRIT (BEAKER) (test djnl=908) 36.8 % 34.1-44.9 MEAN CORPUSCULAR VOLUME (BEAKER) (test osvr=357) 94.6 fL 79.4-94.8 MEAN CORPUSCULAR HEMOGLOBIN (BEAKER) (test 28.5 pg 25.6-32.2 qcno=351) MEAN CORPUSCULAR HEMOGLOBIN CONC (BEAKER) (test 30.2 GM/DL 32.2-35.5 gnup=568) RED CELL DISTRIBUTION WIDTH (BEAKER) (test 15.2 % 11.7-14.4 bfjj=416) PLATELET COUNT (BEAKER) (test vkuc=112) 243 K/CU MM 150-450 MEAN PLATELET VOLUME (BEAKER) (test wqjm=726) 9.6 fL 9.4-12.3 NUCLEATED RED BLOOD CELLS (BEAKER) (test 0 /100 WBC 0-0 fovm=417) NEUTROPHILS RELATIVE PERCENT (BEAKER) (test 86 % ofep=692) LYMPHOCYTES RELATIVE PERCENT (BEAKER) (test 12 % wqsw=976) MONOCYTES RELATIVE PERCENT (BEAKER) (test 2 % bhyj=842) EOSINOPHILS RELATIVE PERCENT (BEAKER) (test 0 % zltf=417) BASOPHILS RELATIVE PERCENT (BEAKER) (test 0 % gbbk=801) NEUTROPHILS ABSOLUTE COUNT (BEAKER) (test 10.84 K/ L 1.56-6.13 gzmt=169) LYMPHOCYTES ABSOLUTE COUNT (BEAKER) (test 1.47 K/ L 1.18-3.74 tudu=441) MONOCYTES ABSOLUTE COUNT (BEAKER) (test 0.20 K/ L 0.24-0.36 wjku=024) EOSINOPHILS ABSOLUTE COUNT (BEAKER) (test 0.00 K/ L 0.04-0.36 aqim=633) BASOPHILS ABSOLUTE COUNT (BEAKER) (test 0.01 K/ L 0.01-0.08 lveo=836) IMMATURE GRANULOCYTES-RELATIVE PERCENT (BEAKER) 1 % 0-1 (test hcal=9147) B-TYPE NATRIURETIC FACTOR (BNP)2018-02-10 23:10:00 Test Item Value Reference Range Comments B-TYPE NATRIURETIC PEPTIDE (BEAKER) (test 125 pg/mL 0-100 jcok=904) [id number] 22:58:00 Test Item Value Reference Range Comments MAGNESIUM (BEAKER) (test otbt=329) 2.2 mg/dL 1.6-2.6 BASIC METABOLIC [id number] 22:58:00 Test Item Value Reference Range Comments SODIUM (BEAKER) (test 138 meq/L 136-145 rhjb=910) POTASSIUM (BEAKER) (test 3.9 meq/L 3.5-5.1 qsad=074) CHLORIDE (BEAKER) (test 104 meq/L 98-107 vegi=477) CO2 (BEAKER) (test 25 meq/L 22-29 xwbd=153) BLOOD UREA NITROGEN 34 mg/dL 7-21 (BEAKER) (test pkub=315) CREATININE (BEAKER) (test 1.08 mg/dL 0.57-1.25 lfso=045) GLUCOSE RANDOM (BEAKER) 173 mg/dL 70-105 (test oxor=239) CALCIUM (BEAKER) (test 8.7 mg/dL 8.4-10.2 ypzy=108) EGFR (BEAKER) (test 49 mL/min/1.73 sq m ESTIMATED GFR IS NOT iajn=2722) ACCURATE CREATININE CLEARANCE IN PREDICTING GLOMERULAR FILTRATION RATE. ESTIMATED GFR IS NOT APPLICABLE FOR DIALYSIS PATIENTS. HEPATIC FUNCTION [id number] 22:58:00 Test Item Value Reference Range Comments TOTAL PROTEIN (BEAKER) (test kast=528) 5.7 gm/dL 6.0-8.3 ALBUMIN (BEAKER) (test gacg=2847) 3.3 g/dL 3.5-5.0 BILIRUBIN TOTAL (BEAKER) (test jvcb=350) 0.3 mg/dL 0.2-1.2 BILIRUBIN DIRECT (BEAKER) (test kncz=913) 0.2 mg/dL 0.1-0.5 ALKALINE PHOSPHATASE (BEAKER) (test dcbx=216) 92 U/L 40-150 AST (SGOT) (BEAKER) (test spgh=715) 14 U/L 5-34 ALT (SGPT) (BEAKER) (test rmez=313) 13 U/L 6-55 [id number] 22:34:00 Test Item Value Reference Range Comments PROTIME (BEAKER) (test ngpa=112) 13.4 seconds 11.7-14.7 INR (BEAKER) (test qnrf=631) 1.0 <=5.9 PARTIAL THROMBOPLASTIN TIME (BEAKER) (test 29.2 seconds 22.5-36.0 vzre=137) RECOMMENDED COUMADIN/WARFARIN INR THERAPY RANGESSTANDARD DOSE: 2.0 - 3.0 Includes: PROPHYLAXIS forvenous thrombosis, systemic embolization; TREATMENT for venous thrombosis and/or pulmonary embolus.HIGH RISK: Target INR is 2.5-3.5 for patients with mechanical heart valves.CBC W/PLT COUNT & AUTO [id number] 22:29:00 Test Item Value Reference Range Comments WHITE BLOOD CELL COUNT (BEAKER) (test srbc=073) 18.4 K/ L 3.5-10.5 RED BLOOD CELL COUNT (BEAKER) (test njby=710) 3.92 M/ L 3.93-5.22 HEMOGLOBIN (BEAKER) (test ykgz=403) 11.3 GM/DL 11.2-15.7 HEMATOCRIT (BEAKER) (test yhzd=420) 37.2 % 34.1-44.9 MEAN CORPUSCULAR VOLUME (BEAKER) (test tzwb=322) 94.9 fL 79.4-94.8 MEAN CORPUSCULAR HEMOGLOBIN (BEAKER) (test 28.8 pg 25.6-32.2 mziz=705) MEAN CORPUSCULAR HEMOGLOBIN CONC (BEAKER) (test 30.4 GM/DL 32.2-35.5 iewt=586) RED CELL DISTRIBUTION WIDTH (BEAKER) (test 15.4 % 11.7-14.4 vwwm=141) PLATELET COUNT (BEAKER) (test zqbv=152) 304 K/CU MM 150-450 MEAN PLATELET VOLUME (BEAKER) (test umfj=765) 9.4 fL 9.4-12.3 NUCLEATED RED BLOOD CELLS (BEAKER) (test 0 /100 WBC 0-0 ubjw=475) NEUTROPHILS RELATIVE PERCENT (BEAKER) (test 85 % pfxd=243) LYMPHOCYTES RELATIVE PERCENT (BEAKER) (test 11 % xfil=765) MONOCYTES RELATIVE PERCENT (BEAKER) (test 3 % qzlx=972) EOSINOPHILS RELATIVE PERCENT (BEAKER) (test 0 % bwqa=683) BASOPHILS RELATIVE PERCENT (BEAKER) (test 0 % room=185) NEUTROPHILS ABSOLUTE COUNT (BEAKER) (test 15.51 K/ L 1.56-6.13 uvvw=942) LYMPHOCYTES ABSOLUTE COUNT (BEAKER) (test 2.04 K/ L 1.18-3.74 caxb=033) MONOCYTES ABSOLUTE COUNT (BEAKER) (test 0.57 K/ L 0.24-0.36 vbke=871) EOSINOPHILS ABSOLUTE COUNT (BEAKER) (test 0.00 K/ L 0.04-0.36 usov=607) BASOPHILS ABSOLUTE COUNT (BEAKER) (test 0.02 K/ L 0.01-0.08 aqjm=030) IMMATURE GRANULOCYTES-RELATIVE PERCENT (BEAKER) 1 % 0-1 (test uvms=5370) RAD, CHEST, 2 [id number] 20:38:00Reason for exam:->COUGH, PURULENT SPUTUM. HX OF [...] MDReport Verified Date/Time: 02/10/2018 20:38:56 Reading Location: [address] Reading Room POCT-GLUCOSE [id number] 17:48:00 Test Item Value Reference Range Comments POC-GLUCOSE METER (BEAKER) 263 mg/dL 70-110 TESTED AT [address] (test xvze=4478) [facility] [address] BLOOD [id number] 01:00:00 Test Item Value Reference Range Comments CULTURE (BEAKER) (test wpwi=2498) No growth in 5 days BLOOD [id number] 01:00:00 Test Item Value Reference Range Comments CULTURE (BEAKER) (test gcac=2751) No growth in 5 days SPUTUM CULTURE + GRAM [id number] 11:21:00 Test Item Value Reference Range Comments CULTURE (BEAKER) (test aeid=8714) Amikacin (test code=1) Aztreonam (test code=32) Cefepime (test code=51) Ceftazidime (test code=27) Ciprofloxacin (test code=7) Doripenem (test swqk=099) Gentamicin (test code=18) Imipenem (test code=19) Levofloxacin (test code=22) Meropenem (test code=34) Piperacillin (test code=24) Piperacillin + Tazobactam (test code=29) Tobramycin (test code=25) CULTURE (BEAKER) (test PSEUDOMONAS AERUGINOSA 4+ Pseudomonas htja=2950) (MUCOID-PHENOTYPE) aeruginosa Amikacin (test code=1) Aztreonam (test code=32) Cefepime (test code=51) Ceftazidime (test code=27) Ciprofloxacin (test code=7) Doripenem (test smwc=386) Gentamicin (test code=18) Imipenem (test code=19) Levofloxacin (test code=22) Meropenem (test code=34) Piperacillin (test code=24) Piperacillin + Tazobactam (test code=29) Tobramycin (test code=25) CULTURE (BEAKER) (test 4+ Pseudomonas etvr=3866) aeruginosa (Mucoid-phenotype) GRAM STAIN RESULT 2+ WBCs (BEAKER) (test juzh=3407) GRAM STAIN RESULT 0-5 epithelial cells (BEAKER) (test rttu=116999) GRAM STAIN RESULT 4+ gram negative rods (BEAKER) (test xfmo=718496) GRAM STAIN RESULT 1+ gram positive cocci (BEAKER) (test in pairs and clusters jtxu=476708) GRAM STAIN RESULT <1+ yeast (BEAKER) (test uxuw=372182) 4+ Normal respiratory greyson presentCT, CHEST, WITH HIGH RESOLUTION, INTERSTITAL LUNG [id number] 08:41:00Compare to prior imagingFINAL REPORT CT of [...] airways and airspace disease. Signed: Nikki Aguilar MDReport Verified Date/Time: 03/27/2017 08: 41:17 Reading Location: [facility] Diagnostic Imaging Reading Room - [place] [address] BASIC METABOLIC [id number] 05:50:00 Test Item Value Reference Range Comments SODIUM (BEAKER) (test 142 meq/L 136-145 hkjj=231) POTASSIUM (BEAKER) (test 3.7 meq/L 3.5-5.1 eapa=951) CHLORIDE (BEAKER) (test 107 meq/L 98-107 zvej=524) CO2 (BEAKER) (test 27 meq/L 22-29 mrmf=473) BLOOD UREA NITROGEN 35 mg/dL 7-21 (BEAKER) (test pmjs=659) CREATININE (BEAKER) (test 0.77 mg/dL 0.57-1.25 zorg=447) GLUCOSE RANDOM (BEAKER) 113 mg/dL 70-105 (test klum=709) CALCIUM (BEAKER) (test 8.9 mg/dL 8.4-10.2 hisw=368) EGFR (BEAKER) (test 72 mL/min/1.73 sq m ESTIMATED GFR IS NOT ksgb=3031) ACCURATE CREATININE CLEARANCE IN PREDICTING GLOMERULAR FILTRATION RATE. ESTIMATED GFR IS NOT APPLICABLE FOR DIALYSIS PATIENTS. HEPATIC FUNCTION [id number] 07:53:00 Test Item Value Reference Range Comments TOTAL PROTEIN (BEAKER) (test kjri=838) 6.5 gm/dL 6.0-8.3 ALBUMIN (BEAKER) (test balh=5064) 3.4 g/dL 3.5-5.0 BILIRUBIN TOTAL (BEAKER) (test fvky=524) 0.4 mg/dL 0.2-1.2 BILIRUBIN DIRECT (BEAKER) (test ayix=748) 0.2 mg/dL 0.1-0.5 ALKALINE PHOSPHATASE (BEAKER) (test cubj=307) 110 U/L 40-150 AST (SGOT) (BEAKER) (test hhtt=198) 10 U/L 5-34 ALT (SGPT) (BEAKER) (test wpgt=790) 14 U/L 6-55 BASIC METABOLIC [id number] 07:53:00 Test Item Value Reference Range Comments SODIUM (BEAKER) (test 142 meq/L 136-145 rdii=671) POTASSIUM (BEAKER) (test 3.9 meq/L 3.5-5.1 jrfe=407) CHLORIDE (BEAKER) (test 109 meq/L 98-107 mpis=723) CO2 (BEAKER) (test 21 meq/L 22-29 uqil=295) BLOOD UREA NITROGEN 30 mg/dL 7-21 (BEAKER) (test fbvi=687) CREATININE (BEAKER) (test 0.82 mg/dL 0.57-1.25 rkfl=361) GLUCOSE RANDOM (BEAKER) 111 mg/dL 70-105 (test qejb=198) CALCIUM (BEAKER) (test 9.2 mg/dL 8.4-10.2 ogzt=689) EGFR (BEAKER) (test 67 mL/min/1.73 sq m ESTIMATED GFR IS NOT jjjp=5940) ACCURATE CREATININE CLEARANCE IN PREDICTING GLOMERULAR FILTRATION RATE. ESTIMATED GFR IS NOT APPLICABLE FOR DIALYSIS PATIENTS. CBC (HEMOGRAM ONLY)2017-03-26 06:37:00 Test Item Value Reference Range Comments WHITE BLOOD CELL COUNT (BEAKER) (test fcwg=737) 28.7 K/ L 3.5-10.5 RED BLOOD CELL COUNT (BEAKER) (test diyj=316) 4.67 M/ L 3.93-5.22 HEMOGLOBIN (BEAKER) (test jmyl=450) 13.1 GM/DL 11.2-15.7 HEMATOCRIT (BEAKER) (test rtwj=768) 43.2 % 34.1-44.9 MEAN CORPUSCULAR VOLUME (BEAKER) (test fmey=585) 92.5 fL 79.4-94.8 MEAN CORPUSCULAR HEMOGLOBIN (BEAKER) (test 28.1 pg 25.6-32.2 mobg=107) MEAN CORPUSCULAR HEMOGLOBIN CONC (BEAKER) (test 30.3 GM/DL 32.2-35.5 amse=651) RED CELL DISTRIBUTION WIDTH (BEAKER) (test 14.3 % 11.7-14.4 axgi=480) PLATELET COUNT (BEAKER) (test iupt=580) 423 K/CU MM 150-450 MEAN PLATELET VOLUME (BEAKER) (test nbgr=262) 9.9 fL 9.4-12.3 NUCLEATED RED BLOOD CELLS (BEAKER) (test 0 /100 WBC 0-0 oxnx=391) T4, [id number] 19:51:00 Test Item Value Reference Range Comments FREE T4 (BEAKER) (test vyri=250) 1.28 ng/dL 0.70-1.48 TSH/FREE T4 IF [id number] 19:02:00 Test Item Value Reference Range Comments THYROID STIMULATING HORMONE (BEAKER) (test 0.09 uIU/mL 0.35-4.94 sfcn=293) INFLUENZA A H1N1 [id number] 14:59:00 Test Item Value Reference Range Comments INFLUENZA A RNA (BEAKER) (test Not Detected Not Detected, Inconclusive lvgw=5958) NOVEL H1N1 RNA (BEAKER) (test Not Detected Not Detected, Inconclusive krzu=5366) These assays were performed by real-time RT-PCR (appeals rn-PCR) utilizing fluorogenic hydrolysis probe technology for the detection of human Influenza A viruses and the differential detection of novel H1N1 Influenza virus in respiratory specimens. The test is composed of (1) an RNA extraction from patient specimen, and (2) appeals rn-PCR amplification and detection with human Influenza A and novel [id number]-pgtpgojp primers and probes. A well-conserved region of [...] and its performance characteristics determined by the [facility] Pathology Department, Section of Molecular Pathology. It has not been cleared or approved by the U.S. Food and Drug Administration (FDA). SinceFDA approval is not required for clinical use of the test, validation was done as required by The Clinical Laboratory Amendments of 1988.These assays were performed by real-time RT-PCR (appeals rn-PCR) utilizing fluorogenic hydrolysis probe technology for the detection of human Influenza A viruses and the differential detection of novel H1N1 Influenza virus in respiratory specimens. The test is composed of (1) an RNA extraction from patient specimen, and (2) appeals rn-PCR amplification and detection with human Influenza A and novel O9R7-jvbnwcmy primers and probes. A well-conserved region of [...] and its performance characteristics determined by the [facility] Pathology Department, Section of Molecular Pathology. It has not been cleared or approved by the U.S. Food and Drug Administration ( FDA). Since FDA approval is not required for clinical use of the test, validation was done as required by The Clinical Laboratory Amendments of 1988.BASIC METABOLIC [id number] 06:47:00 Test Item Value Reference Range Comments SODIUM (BEAKER) (test 143 meq/L 136-145 jerg=649) POTASSIUM (BEAKER) (test 4.0 meq/L 3.5-5.1 Specimen slightly kmxp=164) hemolyzed CHLORIDE (BEAKER) (test 109 meq/L 98-107 lwzv=403) CO2 (BEAKER) (test 25 meq/L 22-29 epss=108) BLOOD UREA NITROGEN 35 mg/dL 7-21 (BEAKER) (test ssno=149) CREATININE (BEAKER) (test 0.77 mg/dL 0.57-1.25 Specimen slightly gznn=085) hemolyzed GLUCOSE RANDOM (BEAKER) 99 mg/dL 70-105 (test iywy=662) CALCIUM (BEAKER) (test 9.2 mg/dL 8.4-10.2 nxpl=566) EGFR (BEAKER) (test 72 mL/min/1.73 sq m ESTIMATED GFR IS NOT edyz=5904) ACCURATE CREATININE CLEARANCE IN PREDICTING GLOMERULAR FILTRATION RATE. ESTIMATED GFR IS NOT APPLICABLE FOR DIALYSIS PATIENTS. CBC (HEMOGRAM ONLY)2017-03-25 06:45:00 Test Item Value Reference Range Comments WHITE BLOOD CELL COUNT (BEAKER) (test ziiz=311) 25.9 K/ L 3.5-10.5 RED BLOOD CELL COUNT (BEAKER) (test ervj=489) 4.32 M/ L 3.93-5.22 HEMOGLOBIN (BEAKER) (test qoct=152) 12.5 GM/DL 11.2-15.7 HEMATOCRIT (BEAKER) (test eygn=859) 39.8 % 34.1-44.9 MEAN CORPUSCULAR VOLUME (BEAKER) (test erym=124) 92.1 fL 79.4-94.8 MEAN CORPUSCULAR HEMOGLOBIN (BEAKER) (test 28.9 pg 25.6-32.2 yvzc=173) MEAN CORPUSCULAR HEMOGLOBIN CONC (BEAKER) (test 31.4 GM/DL 32.2-35.5 wdlh=288) RED CELL DISTRIBUTION WIDTH (BEAKER) (test 13.9 % 11.7-14.4 mjyj=799) PLATELET COUNT (BEAKER) (test zytz=891) 363 K/CU MM 150-450 MEAN PLATELET VOLUME (BEAKER) (test bolc=558) 9.8 fL 9.4-12.3 NUCLEATED RED BLOOD CELLS (BEAKER) (test 0 /100 WBC 0-0 zait=015) STREP PNEUMONIAE [id number] 21:41:00 Test Item Value Reference Range Comments STREP PNEUMONIAE ANTIGEN Presumptive negative for Presumptive negative for (BEAKER) (test pneumococcal pneumonia - pneumococcal pneumonia - gisi=4462) see comment see commen Presumptive negative for pneumococcal pneumonia, suggesting no current or recent pneumococcal infection. Infection due to S. pneumoniae cannot be ruled out since the antigen present in the sample may be below the detection limit of the test.LEGIONELLA ANTIGEN, [id number] 21:40:00 Test Item Value Reference Range Comments L. PNEUMOPHILA SEROGP 1 Negative - see Negative for L. UR AG (BEAKER) (test comment pneumophila serogroup 1 dbem=2990) antigen, suggesting no recent or current infection with this serogroup. Legionellosis cannot be ruled out since other serogroups and species may cause disease. RAPID INFLUENZA A&B [id number] 21:39:00 Test Item Value Reference Range Comments RAPID INFLUENZA A AG (BEAKER) (test Negative Negative, Inconclusive hprf=9253) RAPID INFLUENZA B AG (BEAKER) (test Negative Negative, Inconclusive zucb=4619) CBC W/PLT COUNT & AUTO [id number] 18:13:00 Test Item Value Reference Range Comments WHITE BLOOD CELL COUNT (BEAKER) (test yeyo=822) 24.1 K/ L 3.5-10.5 RED BLOOD CELL COUNT (BEAKER) (test wqpz=838) 4.80 M/ L 3.93-5.22 HEMOGLOBIN (BEAKER) (test drnw=332) 14.0 GM/DL 11.2-15.7 HEMATOCRIT (BEAKER) (test sgpk=787) 45.1 % 34.1-44.9 MEAN CORPUSCULAR VOLUME (BEAKER) (test ruet=757) 94.0 fL 79.4-94.8 MEAN CORPUSCULAR HEMOGLOBIN (BEAKER) (test 29.2 pg 25.6-32.2 znjn=252) MEAN CORPUSCULAR HEMOGLOBIN CONC (BEAKER) (test 31.0 GM/DL 32.2-35.5 tate=692) RED CELL DISTRIBUTION WIDTH (BEAKER) (test 14.2 % 11.7-14.4 zanf=703) PLATELET COUNT (BEAKER) (test mybj=478) 492 K/CU MM 150-450 MEAN PLATELET VOLUME (BEAKER) (test cdbg=257) 9.8 fL 9.4-12.3 NUCLEATED RED BLOOD CELLS (BEAKER) (test 0 /100 WBC 0-0 tfif=608) NEUTROPHILS RELATIVE PERCENT (BEAKER) (test 89 % ikpz=931) LYMPHOCYTES RELATIVE PERCENT (BEAKER) (test 8 % bxny=038) MONOCYTES RELATIVE PERCENT (BEAKER) (test 2 % wbvc=643) EOSINOPHILS RELATIVE PERCENT (BEAKER) (test 0 % byrs=645) BASOPHILS RELATIVE PERCENT (BEAKER) (test 0 % vcdv=642) NEUTROPHILS ABSOLUTE COUNT (BEAKER) (test 21.53 K/ L 1.56-6.13 mvfg=086) LYMPHOCYTES ABSOLUTE COUNT (BEAKER) (test 1.87 K/ L 1.18-3.74 tbbq=606) MONOCYTES ABSOLUTE COUNT (BEAKER) (test 0.35 K/ L 0.24-0.36 rbis=615) EOSINOPHILS ABSOLUTE COUNT (BEAKER) (test 0.00 K/ L 0.04-0.36 ndzi=459) BASOPHILS ABSOLUTE COUNT (BEAKER) (test 0.06 K/ L 0.01-0.08 urhh=211) IMMATURE GRANULOCYTES-RELATIVE PERCENT (BEAKER) 1 % 0-1 (test tnko=1171) (MANUAL DIFFERENTIAL)2017-03-24 18:13:00 Test Item Value Reference Range Comments NEUTROPHILS - REL (DIFF) (BEAKER) (test 86 % gqeo=3394) LYMPHOCYTES - REL (DIFF) (BEAKER) (test 10 % lzmq=6778) MONOCYTES - REL (DIFF) (BEAKER) (test lzpj=5705) 2 % BANDS - REL (DIFF) (BEAKER) (test gaff=8123) 2 % 0-10 NEUTROPHILS - ABS (DIFF) (BEAKER) (test 20.73 K/ L 1.80-8.00 bhzg=6859) LYMPHOCYTES - ABS (DIFF) (BEAKER) (test 2.41 K/ L 1.48-4.50 izhs=3778) MONOCYTES - ABS (DIFF) (BEAKER) (test vogo=3116) 0.48 K/ L 0.00-1.30 BANDS-ABS (DIFF) (BEAKER) (test wvrc=4763) 0.5 K/ L 0.0-0.8 TOTAL COUNTED (BEAKER) (test xebe=3980) 100 BANDS + SEGMENTED NEUTROPHILS (BEAKER) (test 21.21 qeji=7230) WBC MORPHOLOGY (BEAKER) (test byhj=566) Normal GIANT PLATELETS (BEAKER) (test razx=613) Present ANISOCYTOSIS (BEAKER) (test ivpe=505) 1+ few POLYCHROMATOPHILLIC RBCS(BEAKER) (test pmuq=734) 1+ few POCT-LACTIC ACID, [id number] 17:31:00 Test Item Value Reference Range Comments POC-LACTIC ACID, VENOUS 1.8 mmol/L 0.9-1.[address] [facility] [address] [facility] (BEAKER) (test fumd=9887) [facility] [address] BASIC METABOLIC [id number] 15:20:00 Test Item Value Reference Range Comments SODIUM (BEAKER) (test 143 meq/L 136-145 mjmn=567) POTASSIUM (BEAKER) (test 4.2 meq/L 3.5-5.1 sljm=990) CHLORIDE (BEAKER) (test 107 meq/L 98-107 jwoc=842) CO2 (BEAKER) (test 25 meq/L 22-29 drbb=739) BLOOD UREA NITROGEN 32 mg/dL 7-21 (BEAKER) (test ymhz=164) CREATININE (BEAKER) (test 1.12 mg/dL 0.57-1.25 nlke=930) GLUCOSE RANDOM (BEAKER) 157 mg/dL 70-105 (test whmx=148) CALCIUM (BEAKER) (test 9.7 mg/dL 8.4-10.2 ftyt=435) EGFR (BEAKER) (test 47 mL/min/1.73 sq m ESTIMATED GFR IS NOT fqnb=8723) ACCURATE CREATININE CLEARANCE IN PREDICTING GLOMERULAR FILTRATION RATE. ESTIMATED GFR IS NOT APPLICABLE FOR DIALYSIS PATIENTS. RAD, CHEST, 1 VIEW, NON [id number] 15:00:00Reason for exam:->SHORTNESS OF BREATHReason for exam:->COUGHShould this be performed at the bedside?-> YesFINAL REPORT AP chest HISTORY: Cough, shortness of breath COMPARISON: 03/17/2017, 10/30/2016. IMPRESSION:Stable cardiac silhouette. No acute osseous findings. Bibasilar opacities may reflect pneumonia or atelectasis. No large effusion. No pneumothorax. Consider contrast-enhanced chest CT for further evaluation. Signed: Robert Love MDReport Verified Date/ Time: 03/24/2017 15:00:31 Reading Location: [facility] Mammo Reading Room RAD , CHEST, 2 [id number] 13:54:00Reason for Exam:->hypoxemiaLocation-> [facility] HospitalFIN[facility] REPORT PA and lateral chest HISTORY: Hypoxemia COMPARISON: 10/30/2016, 08/23/2014. CT performed 2015. IMPRESSION:Exaggerated thoracic kyphosis again demonstrated. No acute osseous bodies. Cardiac silhouette within normal limits. There appears to interval increase in opacities in the middle lobe and in size of nodules within the lingula which may reflect ongoing/worsening infectious etiology, such as from pulmonary JCOELIN. Lungs otherwise clear. No effusion. No pneumothorax. Further evaluation with chest CT may be useful. Signed: Robert Love MDReport Verified Date/Time: 03/17/2017 13:54:25 Reading Location: [address] Radiology Reading Room
--- NOTE | 2018-05-04 12:39 | EKG ---
Test Date: 2018-05-04 Test Time: 12:12:12 Manager Document Control: ERICKSON MEASUREMENT RESULTS: Intervals: Rate: 103 MT: 134 QRSD: 76 QT: 332 QTc: 434 [place]: P: 61 MT: 134 QRS: -40 T: 46 INTERPRETIVE STATEMENTS: Sinus tachycardia with premature atrial complexes Left axis deviation Abnormal ECG Compared to ECG 12/16/2017 15:59:11 Atrial premature complex(es) now present Sinus rhythm no longer present Electronically Signed On 05-04-18 12:38:40 PHYSICIAN PEDIATRICIAN by Dieudonne Wallace
[2018-05-04 13:00] LABS: Absolute Lymphocytes (CBC) 4.2 K/uL (0.7-4.9); Absolute Monocytes 1.6 K/uL (0.1-1.3); Absolute Neutrophil 12.6 K/uL (1.8-8.0); Basophils % 0.5 % (0-1.3); Eosinophils % 0.2 % (0-4.4); Hematocrit 40.9 % (36.0-45.0); Lymphocytes % 22.8 % (15.3-44.8); MCH 29.8 pg (27.0-35.0); MCV 90.5 fL (80-100); MPV 7.9 fL (7.6-11.3); Monocytes % 8.5 % (3.3-12.3); RBC Red Blood Cell Count 4.52 M/uL (3.86-4.86)
[2018-05-04] MEDS ORDERED: METHYLPREDNISOLONE 125 MG INJ ONE (13:00)
--- NOTE | 2018-05-04 13:00 | RAD REPORT ---
EXAM DESCRIPTION: RAD - Chest Single View - 05/04/2018 12:56 pm CLINICAL HISTORY: Cough;COPD Chest pain. COMPARISON: Chest Single View dated 12/16/2017; CHEST PA AND LAT 2 VIEW dated 10/28/2014; CHEST PA AND LAT 2 VIEW dated 03/21/2014; CHEST PA AND LAT 2 VIEW dated 05/10/2013 FINDINGS: Portable technique limits examination quality. The lungs are emphysematous but clear. The heart is normal in size. No displaced fractures. IMPRESSION: COPD without acute finding demonstrated.
[2018-05-04] MEDS ORDERED: LEVALBUTEROL 1.25 MG/3 ML NEB ONE (13:01)
[2018-05-04] MEDS ORDERED: IPRATROPIUM BROM 0.5MG/2.5ML ONE (13:01)
[2018-05-04] MEDS ORDERED: NA CHLORIDE 0.9% 1,000 ML ONE (13:01)
[2018-05-04 13:03] LABS: Urine Blood TRACE (NEG); Urine Glucose NEGATIVE (NEG); Urine Protein NEGATIVE (NEG); Urine Specific Gravity 1.015 (1.005-1.030)
[2018-05-04 13:04] LABS: Protime INR 0.96
[2018-05-04 13:20] LABS: Albumin 3.2 g/dL (3.4-5.0); Bilirubin Direct 0.1 mg/dL (0-0.2); Bilirubin Total 0.5 mg/dL (0.2-1.0); Magnesium 2.4 mg/dL (1.8-2.4); Potassium 3.2 mmol/L (3.5-5.1); Protein, Total 6.6 g/dL (6.4-8.2); Thyroid Stimulating Hormone 2.26 uIU/mL (0.360-3.740); Troponin (Emerg Dept Use Only) 0.1 ng/mL (0.0-0.045)
[2018-05-04] MEDS ORDERED: ADENOSINE 6 MG/ 2ML VIAL IV ONE (14:09)
[2018-05-04] MEDS ORDERED: ENOXAPARIN 60 MG/0.6 ML SQ ONE (14:10)
[2018-05-04] MEDS ORDERED: ASPIRIN 81 MG CHEWABLE TABLET ONE (14:10)
[2018-05-04] MEDS ORDERED: FAMOTIDINE 20 MG/2 ML VIAL IV ONE (14:10)
--- NOTE | 2018-05-04 14:11 | EDPHYS ---
Physician Documentation [facility] Name: Mary Gonzales Age: 82 yrs Sex: Female : 1935 Arrival Date: 05/04/2018 Time: 11:42 Bed 3 Private MD: ED Physician Ritchie Tracy HPI: 05/04 12:09 This 82 yrs old Female presents to ER via EMS with complaints of palpitations jahaira and dyspnea. 12:09 The patient presents with a history of irregular heart beat, heart racing. Context: The jahaira symptoms occur at rest. Onset: The symptoms/episode began/occurred 2 day(s) ago. Modifying factors: The symptoms are aggravated by. The patient or guardian reports cough, difficulty breathing. Severity of symptoms: At their worst the symptoms were mild, in the emergency department the symptoms are unchanged. Severity of symptoms: At their worst the symptoms were moderate in the emergency department the symptoms are unchanged. Historical: - Allergies: 11:58 Ultram; ss - PMHx: 11:58 COPD; Depression; tremors; ss - PSHx: 11:58 Hysterectomy; Cholecystectomy; ss - Immunization history:: Adult Immunizations up to date. - Social history:: Smoking status: Patient/guardian denies using tobacco. - Ebola Screening: : Patient denies exposure to infectious person Patient denies travel to an Ebola-affected area in the 21 days before illness onset. - Family history:: not pertinent. ROS: 12:09 Constitutional: Negative for fever, chills, and weight loss, Eyes: Negative for injury, jahaira pain, redness, and discharge, ENT: Negative for injury, pain, and discharge, Neck: Negative for injury, pain, and swelling, Abdomen/GI: Negative for abdominal pain, nausea, vomiting, diarrhea, and constipation, Back: Negative for injury and pain, : Negative for injury, bleeding, discharge, and swelling, MS/Extremity: Negative for injury and deformity, Skin: Negative for injury, rash, and discoloration, Neuro: Negative for headache, weakness, numbness, tingling, and seizure, Psych: Negative for depression, anxiety, suicide ideation, homicidal ideation, and hallucinations, Allergy/Immunology: Negative for hives, rash, and allergies, Endocrine: Negative for neck swelling, polydipsia, polyuria, polyphagia, and marked weight changes, Hematologic/Lymphatic: Negative for swollen nodes, abnormal bleeding, and unusual bruising. 12:09 Cardiovascular: Positive for palpitations. 12:09 Respiratory: Positive for cough, shortness of breath, wheezing, expiratory. Exam: 12:09 Constitutional: This is a well developed, well nourished patient who is awake, alert, jahaira and in no acute distress. Head/Face: Normocephalic, atraumatic. Eyes: Pupils equal round and reactive to light, extra-ocular motions intact. Lids and lashes normal. Conjunctiva and sclera are non-icteric and not injected. Cornea within normal limits. Periorbital areas with no swelling, redness, or edema. ENT: Nares patent. No nasal discharge, no septal abnormalities noted. Tympanic membranes are normal and external auditory canals are clear. Oropharynx with no redness, swelling, or masses, exudates, or evidence of obstruction, uvula midline. Mucous membranes moist. Neck: Trachea midline, no thyromegaly or masses palpated, and no cervical lymphadenopathy. Supple, full range of motion without nuchal rigidity, or vertebral point tenderness. No Meningismus. Chest/axilla: Normal chest wall appearance and motion. Nontender with no deformity. No lesions are appreciated. Abdomen/GI: Soft, non-tender, with normal bowel sounds. No distension or tympany. No guarding or rebound. No evidence of tenderness throughout. Back: No spinal tenderness. No costovertebral tenderness. Full range of motion. Female : Normal external genitalia. Skin: Warm, dry with normal turgor. Normal color with no rashes, no lesions, and no evidence of cellulitis. MS/ Extremity: Pulses equal, no cyanosis. Neurovascular intact. Full, normal range of motion. Neuro: Awake and alert, GCS 15, oriented to person, place, time, and situation. Cranial nerves II-XII grossly intact. Motor strength 5/5 in all extremities. Sensory grossly intact. Cerebellar exam normal. Normal gait. Psych: Awake, alert, with orientation to person, place and time. Behavior, mood, and affect are within normal limits. 12:09 Cardiovascular: Rate: tachycardic, Rhythm: irregularly irregular, Pulses: Pulses are 4+ in bilateral radial, brachial, femoral, popliteal, posterior tibial and and dorsalis pedis arteries.. Heart sounds: normal, JVD: is not appreciated. Vital Signs: 11:58 BP 158 / 91; Pulse 107; Resp 25; Pulse Ox 93% on R/A; Weight 62.6 kg; Pain 0/10; ss 13:01 BP 150 / 77; Pulse 91; Resp 21; Temp 97.8(TE); Pulse Ox 100% on Nebulizer Mask; Pain tw2 0/10; 14:00 BP 149 / 87; Pulse 208; Resp 18 S; Pulse Ox 97% on R/A; jl7 14:06 Pulse 91; jl7 14:20 Pulse 170; jl7 14:45 BP 153 / 85; Pulse 84; Resp 16 S; Pulse Ox 97% on R/A; jl7 15:51 BP 122 / 71; Pulse 79; Resp 16 S; Pulse Ox 97% on R/A; jl7 MDM: 11:49 Patient medically screened. [facility] 12:13 Data reviewed: vital signs, nurses notes, lab test result(s), EKG, radiologic studies, jahaira plain films. 05/04 12:08 Order name: Basic Metabolic Panel; Complete Time: 13:54 [facility] 05/04 12:08 Order name: CBC with Diff; Complete Time: 13:54 [facility] 05/04 12:08 Order name: LFT's; Complete Time: 13:54 [facility] 05/04 12:08 Order name: Magnesium; Complete Time: 13:54 [facility] 05/04 12:08 Order name: NT PRO-BNP; Complete Time: 13:54 [facility] 05/04 12:08 Order name: PT-INR; Complete Time: 13:18 [facility] 05/04 12:08 Order name: Troponin (emerg Dept Use Only); Complete Time: 13:54 [facility] 05/04 12:08 Order name: XRAY Chest (1 view); Complete Time: 13:18 [facility] 05/04 12:08 Order name: TSH; Complete Time: 13:54 [facility] 05/04 12:08 Order name: Blood Culture Adult (2) [facility] 05/04 12:08 Order name: Influenza Screen (a \T\ B); Complete Time: 13:54 [facility] 05/04 12:08 Order name: Urine Culture [facility] 05/04 12:55 Order name: Urine Dipstick--Ancillary (enter results); Complete Time: 13:18 05/04 16:55 Order name: Glucose, Ancillary Testing EDMS 05/04 12:08 Order name: EKG; Complete Time: 12:10 [facility] 05/04 12:08 Order name: Cardiac monitoring; Complete Time: 13:01 [facility] 05/04 12:08 Order name: EKG - Nurse/Tech; Complete Time: 13:01 [facility] 05/04 12:08 Order name: IV Saline Lock; Complete Time: 13: [facility] 05/04 12:08 Order name: Labs collected and sent; Complete Time: 13: [facility] 05/04 12:08 Order name: O2 Per Protocol; Complete Time: 13: [facility] 05/04 12:08 Order name: O2 Sat Monitoring; Complete Time: 13: [facility] 05/04 12:08 Order name: Urine Dipstick-Ancillary (obtain specimen); Complete Time: 13: [facility] 05/04 12:17 Order name: Cath; Complete Time: 12:17 [facility] 05/04 13:54 Order name: EKG; Complete Time: 13:54 [facility] 05/04 13:54 Order name: EKG - Nurse/Tech; Complete Time: 13:59 [facility] 05/04 14:11 Order name: NPO; Complete Time: 14:16 [facility] 05/04 14:30 Order name: EKG - Nurse/Tech; Complete Time: 14:32 [facility] 05/04 14:30 Order name: EKG; Complete Time: 14:30 [facility] Administered Medications: Discontinued: NS 0.9% 1000 ml IV at 125 ml/hr continuous 12:57 Drug: AtroVENT Aerosol 0.5 mg Route: Inhalation; tw2 14:00 Follow up: Response: No adverse reaction jl7 12:58 Drug: SOLU-Medrol 125 mg Route: IVP; Site: right antecubital; tw2 14:12 Follow up: Response: No adverse reaction jl7 12:58 Drug: Xopenex 2.5 mg Route: Inhalation; tw2 14:00 Follow up: Response: No adverse reaction jl7 13:00 Drug: NS 0.9% 1000 ml Route: IV; Rate: 125 ml/hr; Site: right antecubital; tw2 15:06 Follow up: IV Status: Order to discontinue infusion jl7 13:58 CANCELLED (Duplicate Order): Potassium Effervescent Tablet 25 mEq PO once; dissolve in [facility] 4 ounces of water or juice 14:02 Drug: Lopressor 2.5 mg Route: IVP; Site: left antecubital; jl7 14:05 Follow up: Response: Cardiac rhythm changed jl7 14:05 Drug: Lopressor 25 mg Route: PO; jl7 14:30 Follow up: Response: No adverse reaction jl7 14:06 Drug: Lovenox 1 mg/kg Route: Sub-Q; Site: left lower abdomen; tw2 14:08 Follow up: Response: No adverse reaction tw2 14:07 Drug: Aspirin 162 mg Route: PO; tw2 14:07 Follow up: Response: No adverse reaction tw2 14:07 Drug: Pepcid 20 mg Route: IVP; Site: left antecubital; tw2 14:07 Follow up: Response: No adverse reaction tw2 14:08 Drug: D50W 25 ml Route: IVP; Site: left antecubital; jl7 16:12 Follow up: Response: No adverse reaction; Blood sugar is elevated 7 14:16 Drug: NS 0.9% 250 ml Route: IV; Rate: bolus; Site: right antecubital; 7 14:32 Follow up: IV Status: Completed infusion jl7 14:20 Drug: Lopressor 2.5 mg Route: IVP; Site: left antecubital; jl7 14:30 Follow up: Response: Cardiac rhythm is unchanged 7 14:30 Drug: Potassium Chloride 20 mEq Route: IV; Rate: per protocol; Site: left antecubital; jl7 17:26 Follow up: IV Status: Infusion continued upon transfer jl7 14:30 Drug: NS 0.9% with KCl 20 mEq/L 1000 ml Route: IV; Rate: 100 ml/hr; Site: left [facility] antecubital; 17:25 Follow up: IV Status: Infusion continued upon transfer jl7 14:30 Drug: levofloxacin 500 mg Volume: 100 ml; Route: IVPB; Infused Over: 60 mins; Site: [facility] left antecubital; 15:30 Follow up: Response: No adverse reaction; IV Status: Completed infusion jl7 14:32 Drug: Lopressor 2.5 mg Route: IVP; Site: left antecubital; jl7 14:45 Follow up: Response: Cardiac rhythm changed jl7 15:00 Drug: Digoxin 0.5 mg Route: IVP; Site: left antecubital; jl7 16:08 Follow up: Response: No adverse reaction jl7 17:25 Not Given (Other Intervention Used): Adenocard 6 mg IVP once; have on stand by [facility] 17:25 Not Given (cardiac rhythm changed): Lopressor 2.5 mg IVP once; Hold for SBP <100 or HR jl7 <60. Point of Care Testing: Blood Glucose: 16:10 Blood Glucose: 100 mg/dL; dh3 Ranges: Critical Glucose Levels:Adult <50 mg/dl or >400 mg/dl <40 mg/dl or >180 mg/dl Disposition: 05/04/18 14:10 Transfer ordered to [facility]. Diagnosis are Bronchiectasis - history of, Supraventricular tachycardia, Bronchiectasis with (acute) exacerbation, Hypokalemia, Hypoglycemia, unspecified, Elevated white blood cell count. - Reason for transfer: Higher level of care. - Accepting physician is to [facility], [facility], pulmonary. - Condition is Fair. - Problem is new. - Symptoms have improved. Signatures: Dispatcher [employer] EDMS Ritchie Tracy MD MD cha Smirch, Shelby, RN RN ss Renata Owens RN RN tw2 Crescencio Hinson RN RN jl7 Corrections: (The following items were deleted from the chart) 13:58 13:55 Potassium Effervescent Tablet 25 mEq PO once; dissolve in 4 ounces of water or jahaira juice ordered. [facility] 14:28 14:10 05/04/2018 14:10 Transfer ordered to [facility]. Diagnosis is [facility] Bronchiectasis - history of; Supraventricular tachycardia; Bronchiectasis with (acute) exacerbation; Hypokalemia; Hypoglycemia, unspecified. Reason for transfer: Higher level of care. Accepting physician is to [facility], [facility], pulmonary. Condition is Fair. Problem is new. Symptoms have improved. [facility] 17:27 14:28 05/04/2018 14:10 Transfer ordered to [facility]. Diagnosis is [facility] Bronchiectasis - history of; Supraventricular tachycardia; Bronchiectasis with (acute) exacerbation; Hypokalemia; Hypoglycemia, unspecified; Elevated white blood cell count. Reason for transfer: Higher level of care. Accepting physician is to [facility], [facility], pulmonary. Condition is Fair. Problem is new. Symptoms have improved. [facility]
--- NOTE | 2018-05-04 14:11 | ER ---
Nurse's Notes [facility] Name: Mary Gonzales Age: 82 yrs Sex: Female : 1935 Arrival Date: 05/04/2018 Time: 11:42 Bed 3 Private MD: Diagnosis: Bronchiectasis-history of;Supraventricular tachycardia;Bronchiectasis with (acute) exacerbation;Hypokalemia;Hypoglycemia, unspecified;Elevated white blood cell count Presentation: 05/04 11:54 Presenting complaint: EMS states: got up from bed and walking to the restroom when ss patient became dizzy and had a near syncopal episode. Pt c/o mild CP, but after O2 and ASA administration, pt reports that pain is relieved. Transition of care: patient was not received from another setting of care. Onset of symptoms was May 04, 2018. Risk Assessment: Do you want to hurt yourself or someone else? Patient reports no desire to harm self or others. Initial Sepsis Screen: Does the patient meet any 2 criteria? RR > 20 per min. HR > 90 bpm. Does the patient have a suspected source of infection? Yes: Productive cough/pneumonia. Care prior to arrival: Medication(s) given: ASA, 81 mg, x 4, Normal saline infusion, 500 mL, IV initiated. 20 GA, in the right wrist, Glucose check: 80 Oxygen administered. via nasal cannula. 11:54 Method Of Arrival: EMS: [facility] ss 11:54 Acuity: JOANNA 3 ss 11:59 Note EMS 12 lead EKG showed AFIB, which patient does not have a history of. ss Historical: - Allergies: 11:58 Ultram; ss - PMHx: 11:58 COPD; Depression; tremors; ss - PSHx: 11:58 Hysterectomy; Cholecystectomy; ss - Immunization history:: Adult Immunizations up to date. - Social history:: Smoking status: Patient/guardian denies using tobacco. - Ebola Screening: : Patient denies exposure to infectious person Patient denies travel to an Ebola-affected area in the 21 days before illness onset. - Family history:: not pertinent. Screenin:00 Abuse screen: Denies threats or abuse. Denies injuries from another. Nutritional jl7 screening: No deficits noted. Tuberculosis screening: No symptoms or risk factors identified. Fall Risk IV access (20 points). Assessment: 14:00 General: Appears uncomfortable, ill, Behavior is calm, cooperative, appropriate for jl7 age. Pain: Denies pain. Neuro: Level of Consciousness is awake, alert, obeys commands, Oriented to person, place, time, situation. Cardiovascular: Denies chest pain, Heart tones present Patient's skin is warm and dry. Rhythm is atrial fibrillation with rapid ventricular response. Respiratory: Airway is patent Respiratory effort is even, unlabored, Respiratory pattern is regular, symmetrical, Breath sounds with wheezes bilaterally. GI: No signs and/or symptoms were reported involving the gastrointestinal system. Derm: Skin is dry, Skin is pale, Skin temperature is warm. 15:00 Reassessment: Patient appears in no apparent distress at this time. Patient and/or jl7 family updated on plan of care and expected duration. Pain level reassessed. Patient is alert, oriented x 3, equal unlabored respirations, skin warm/dry/pink. 16:00 Reassessment: Patient and/or family updated on plan of care and expected duration. Pain jl7 level reassessed. Patient is alert, oriented x 3, equal unlabored respirations, skin warm/dry/pink. Vital Signs: 11:58 BP 158 / 91; Pulse 107; Resp 25; Pulse Ox 93% on R/A; Weight 62.6 kg; Pain 0/10; ss 13:01 BP 150 / 77; Pulse 91; Resp 21; Temp 97.8(TE); Pulse Ox 100% on Nebulizer Mask; Pain tw2 0/10; 14:00 BP 149 / 87; Pulse 208; Resp 18 S; Pulse Ox 97% on R/A; jl7 14:06 Pulse 91; jl7 14:20 Pulse 170; jl7 14:45 BP 153 / 85; Pulse 84; Resp 16 S; Pulse Ox 97% on R/A; jl7 15:51 BP 122 / 71; Pulse 79; Resp 16 S; Pulse Ox 97% on R/A; jl7 ED Course: 11:42 Patient arrived in ED. ss 11:49 Ritchie Tracy MD is Attending Physician. jahaira 11:54 Urine collected: straight cath specimen, clear. Maintain EMS IV. Dressing intact. Good ss blood return noted. Site clean \T\ dry. Gauge \T\ site: 20 gauge in R wrist. Patient maintains SpO2 saturation greater than 95% on room air. 11:58 Triage completed. ss 11:58 Arm band placed on right wrist. ss 12:16 Renata Owens, TERESA is Primary Nurse. tw2 12:30 EKG done, by java tech. reviewed by Ritchie Tracy MD. at1 12:57 XRAY Chest (1 view) In Process Unspecified. EDMS 13:01 Blood Culture Adult (2) Sent. tw2 13:01 Influenza Screen (a \T\ B) Sent. tw2 13:17 X-ray completed. Portable x-ray completed in exam room. Patient tolerated procedure jb2 well. 14:00 Patient has correct armband on for positive identification. Placed in gown. Bed in low jl7 position. Call light in reach. Side rails up X2. site monitor on. Pulse ox on. NIBP on. 14:05 Inserted saline lock: 20 gauge in left antecubital area, using aseptic technique. dh3 14:20 EKG done, by java tech. reviewed by Ritchie Tracy MD. sm3 14:45 Assisted with bedpan. jl7 15:45 Assisted with bedpan. jl7 17:23 No provider procedures requiring assistance completed. Patient transferred, IV remains jl7 in place. intact, No redness/swelling at site. Administered Medications: Discontinued: NS 0.9% 1000 ml IV at 125 ml/hr continuous 12:57 Drug: AtroVENT Aerosol 0.5 mg Route: Inhalation; tw2 14:00 Follow up: Response: No adverse reaction jl7 12:58 Drug: SOLU-Medrol 125 mg Route: IVP; Site: right antecubital; tw2 14:12 Follow up: Response: No adverse reaction jl7 12:58 Drug: Xopenex 2.5 mg Route: Inhalation; tw2 14:00 Follow up: Response: No adverse reaction jl7 13:00 Drug: NS 0.9% 1000 ml Route: IV; Rate: 125 ml/hr; Site: right antecubital; tw2 15:06 Follow up: IV Status: Order to discontinue infusion jl7 13:58 CANCELLED (Duplicate Order): Potassium Effervescent Tablet 25 mEq PO once; dissolve in jahaira 4 ounces of water or juice 14:02 Drug: Lopressor 2.5 mg Route: IVP; Site: left antecubital; jl7 14:05 Follow up: Response: Cardiac rhythm changed jl7 14:05 Drug: Lopressor 25 mg Route: PO; jl7 14:30 Follow up: Response: No adverse reaction jl7 14:06 Drug: Lovenox 1 mg/kg Route: Sub-Q; Site: left lower abdomen; tw2 14:08 Follow up: Response: No adverse reaction tw2 14:07 Drug: Aspirin 162 mg Route: PO; tw2 14:07 Follow up: Response: No adverse reaction tw2 14:07 Drug: Pepcid 20 mg Route: IVP; Site: left antecubital; tw2 14:07 Follow up: Response: No adverse reaction tw2 14:08 Drug: D50W 25 ml Route: IVP; Site: left antecubital; jl7 16:12 Follow up: Response: No adverse reaction; Blood sugar is elevated jl7 14:16 Drug: NS 0.9% 250 ml Route: IV; Rate: bolus; Site: right antecubital; jl7 14:32 Follow up: IV Status: Completed infusion jl7 14:20 Drug: Lopressor 2.5 mg Route: IVP; Site: left antecubital; jl7 14:30 Follow up: Response: Cardiac rhythm is unchanged jl7 14:30 Drug: Potassium Chloride 20 mEq Route: IV; Rate: per protocol; Site: left antecubital; jl7 17:26 Follow up: IV Status: Infusion continued upon transfer jl7 14:30 Drug: NS 0.9% with KCl 20 mEq/L 1000 ml Route: IV; Rate: 100 ml/hr; Site: left [facility] antecubital; 17:25 Follow up: IV Status: Infusion continued upon transfer jl7 14:30 Drug: levofloxacin 500 mg Volume: 100 ml; Route: IVPB; Infused Over: 60 mins; Site: [facility] left antecubital; 15:30 Follow up: Response: No adverse reaction; IV Status: Completed infusion jl7 14:32 Drug: Lopressor 2.5 mg Route: IVP; Site: left antecubital; jl7 14:45 Follow up: Response: Cardiac rhythm changed jl7 15:00 Drug: Digoxin 0.5 mg Route: IVP; Site: left antecubital; jl7 16:08 Follow up: Response: No adverse reaction jl7 17:25 Not Given (Other Intervention Used): Adenocard 6 mg IVP once; have on stand by jl7 17:25 Not Given (cardiac rhythm changed): Lopressor 2.5 mg IVP once; Hold for SBP <100 or HR jl7 <60. Point of Care Testing: Blood Glucose: 16:10 Blood Glucose: 100 mg/dL; dh3 Ranges: Outcome: 14:10 ER care complete, transfer ordered by MD. campo 17:23 Transferred by ground EMS to [facility], Transfer form completed. jl7 X-rays sent w/ patient. 17:23 Condition: stable 17:23 Discharge instructions given to patient, family, Instructed on the need for transfer, Demonstrated understanding of instructions. 17:27 Patient left the ED. jl7 Signatures: Dispatcher [employer] EDMS Ritchie Tracy MD MD cha Buechter, Jesse jb2 Savannah Clarke, RN RN ss Maribel Martin, clip loading machine feeder EKG Tat1 Renata Owens RN RN 2 Crescencio Hinson RN RN 7 Theresa Birmingham 3 Paula Fletcher 3 Corrections: (The following items were deleted from the chart) 16:06 16:05 Response: No adverse reaction; IV Status: Completed infusion jl7 jl7
[2018-05-04] MEDS ORDERED: D50W 25 GM/50 ML SYRINGE IV ONE (14:12)
[2018-05-04] MEDS ORDERED: METOPROLOL TARTRATE 5 MG/5 ML INJ IV ONE ×2 (14:12→14:38)
[2018-05-04] MEDS ORDERED: METOPROLOL TAR 25 MG TAB ONE (14:12)
[2018-05-04] MEDS ORDERED: Levofloxacin500mg IV 500 MG/100 ML BAG IV ONE (14:27)
[2018-05-04] MEDS ORDERED: NS KCL 20MEQ 1,000 ML IV ONE (14:27)
[2018-05-04] MEDS ORDERED: KCL 20 MEQ/100 mL IVPB 20 MEQ/100 ML BAG IV ONE (14:27)
[2018-05-04] MEDS ORDERED: DIGOXIN 0.25 MG/ML AMP ONE (14:52)
--- NOTE | 2018-05-04 16:05 | EKG ---
Test Date: 2018-05-04 Test Time: 13:57:14 Technical Communicator: HB MEASUREMENT RESULTS: Intervals: Rate: 201 OR: QRSD: 162 QT: 218 QTc: 398 [place]: P: OR: QRS: -50 T: 40 INTERPRETIVE STATEMENTS: Supraventricular tachycardia Diffuse ST abnormality no specific septal infarct Abnormal ECG Compared to ECG 05/04/2018 12:12:12 Myocardial infarct finding now present Sinus tachycardia no longer present Atrial premature complex(es) no longer present Electronically Signed On 05-04-18 16:05:02 SENIOR CLIMATE ADVISOR by Dieudonne Wallace
--- NOTE | 2018-05-04 19:17 | EKG ---
Test Date: 2018-05-04 Test Time: 14:12:18 Manager Development: TERRY MEASUREMENT RESULTS: Intervals: Rate: 90 SC: 154 QRSD: 82 QT: 348 QTc: 425 [place]: P: 54 SC: 154 QRS: -19 T: 55 INTERPRETIVE STATEMENTS: Normal sinus rhythm Nonspecific ST abnormality Abnormal ECG Compared to ECG 05/04/2018 13:57:14 Supraventricular tachycardia no longer present Myocardial infarct finding no longer present ST (T wave) deviation still present Electronically Signed On 05-04-18 19:17:22 AUTOMOTIVE SALESPERSON by Dieudonne Wallace
--- NOTE | 2018-05-04 19:17 | EKG ---
Test Date: 2018-05-04 Test Time: 14:31:58 Customer Strategy Manager: TERRY MEASUREMENT RESULTS: Intervals: Rate: 162 [place]: 176 QRSD: 76 QT: 218 QTc: 357 [place]: P: 80 [place]: 176 QRS: -18 T: 243 INTERPRETIVE STATEMENTS: Sinus tachycardia, cannot rule out atrial flutter Septal infarct, age undetermined Marked ST abnormality, possible inferior subendocardial injury Abnormal ECG Compared to ECG 05/04/2018 14:12:18 Myocardial infarct finding now present Sinus rhythm no longer present ST (T wave) deviation still present Electronically Signed On 05-04-18 19:17:15 DATABASE ENGINEER by Dieudonne Wallace
[2018-05-04 22:42] VITALS: TEMP 97.8
[2018-05-04 22:43] VITALS: O2SAT 97
[2018-05-04 22:48] VITALS: BP 122/71
== END 2018-05-04 17:27 | disposition short-term general hospital (02) ==
LOC: ER 11:31
DX: J47.1 Bronchiectasis with (acute) exacerbation (principal); E87.6 Hypokalemia; E16.2 Hypoglycemia, unspecified; D72.829 Elevated white blood cell count, unspecified; R94.31 Abnormal electrocardiogram [ECG] [EKG]; I47.1 Supraventricular tachycardia
CPT/HCPCS: 36415; 71045; 80048; 80076; 81003; 82962; 83735; 83880; 84443; 84484; 85025; 85610; 87040 ×2; 87088; 87804 ×2; 93005 ×4; 96361; 96365; 96366; 96367; 96368; 96372; 96375; 99285; J1160; J1650; J2930; J7030; 87086; J0153